=== PATIENT | female | born 1985 | race Caucasian/White ===

== ENCOUNTER → 2017-04-23 | Emergency (ER) | payer BC, OTHER, SELFPAY | PROVIDERS: Emergency Provider Nurse Practitioner Family; Family Provider Emergency Medicine; PCP Emergency Medicine; Visit Provider Nurse Practitioner Family | DX: R05 Cough (principal); R11.0 Nausea; Z72.0 Tobacco use; I10 Essential (primary) hypertension ==

== ENCOUNTER → 2018-12-18 17:46 | Outpatient (CLI) | payer OTHER, SELFPAY ==
[2018-12-18 18:37] LABS: Mean Corpuscular Hemoglobin 31.8 pg (27.0-31.2); Red Cell Distribution Width 13.8 % (11.5-17.5)
[2018-12-18 19:01] LABS: Alanine Aminotransferase 31 U/L (12-78); Albumin/Globulin Ratio 1.1 (1.1-1.8); Alkaline Phosphatase 63 U/L (46-116); Anion Gap 13.8 mEq/L (5-15); Aspartate Amino Transferase 20 U/L (15-37); Bilirubin,Total 0.5 mg/dL (0.2-1.0); Blood Urea Nitrogen 9 mg/dL (7-18); Calcium 9.2 mg/dL (8.5-10.1); Carbon Dioxide 26 mmol/L (21.0-32.0); Chloride 103 mmol/L (98-107); Creatinine,Serum 0.72 mg/dL (0.55-1.02); Estimated Glomerular Filt Rate 93 ml/min (>60); GFR (African American) 113 ML/MIN (>60); Globulin 3.7 gm/dl (1.3-3.2); Glucose 80 mg/dL (74-106); Potassium 3.8 mmoL/L (3.5-5.1); Sodium 139 mmol/L (136-145); Thyroid Stimulating Hormone 1.03 uIU/ml (0.358-3.740); Total Protein,Serum 7.7 gm/dL (6.4-8.2)
[2018-12-18 19:14] LABS: Basophils % 0.3 % (0.1-2.0); Eosinophils # 0.1 K/mm3 (0.0-0.4); Eosinophils % 2.1 % (0.1-12.0); Hematocrit 45.6 % (37.0-47.0); Hemoglobin 14.9 g/dL (12.2-16.2); Lymphocytes % 33.6 % (10-50); Mean Corpuscular HGB Conc 32.7 g/dL (31.8-35.4); Mean Corpuscular Volume 97.2 fl (81-99); Monocytes # 0.4 K/mm3 (0.1-1.0); Monocytes % 6.1 % (1.7-9.3); Neutrophils # 3.5 K/mm3 (1.8-7.8); Neutrophils % 57.9 % (37.0-80.0); Platelet Count 242 K/mm3 (142-424); Red Blood Count 4.69 M/mm3 (4.20-5.40); White Blood Count 6.1 K/mm3 (4.8-10.8)
== END ==
PROVIDERS: Visit Provider Emergency Medicine
DX: F31.9 Bipolar disorder, unspecified (principal); F32.9 Major depressive disorder, single episode, unspecified
CPT/HCPCS: 80053; 84443; 85025

== ENCOUNTER → 2019-11-01 12:40 | Outpatient (CLI) | payer OTHER, SELFPAY ==
[2019-11-01 13:47] LABS: Basophils % 0.3 % (0.1-2.0); Eosinophils # 0.1 K/mm3 (0.0-0.4); Eosinophils % 1.8 % (0.1-12.0); Hematocrit 46.7 % (37.0-47.0); Hemoglobin 15.1 g/dL (12.2-16.2); Lymphocytes # 1.3 K/mm3 (0.7-4.5); Mean Corpuscular HGB Conc 32.4 g/dL (31.8-35.4); Mean Corpuscular Hemoglobin 32.2 pg (27.0-31.2); Mean Corpuscular Volume 99.4 fl (81-99); Mean Platelet Volume 7.4 fl (7.4-10.4); Monocytes # 0.3 K/mm3 (0.1-1.0); Monocytes % 5.4 % (1.7-9.3); Neutrophils # 3.2 K/mm3 (1.8-7.8); Neutrophils % 65.6 % (37.0-80.0); Platelet Count 214 K/mm3 (142-424); Red Cell Distribution Width 13.6 % (11.5-17.5); White Blood Count 4.9 K/mm3 (4.8-10.8)
[2019-11-01 14:07] LABS: Alanine Aminotransferase 23 U/L (12-78); Albumin Level 4.4 g/dl (3.5-5.0); Albumin/Globulin Ratio 1.5 (1.1-1.8); Alkaline Phosphatase 69 U/L (38-126); Anion Gap 11.8 mEq/L (5-15); Aspartate Amino Transferase 40 U/L (14-36); Bilirubin,Direct 0.1 mg/dl (0.0-0.4); Bilirubin,Total 0.5 mg/dl (0.2-1.3); Blood Urea Nitrogen 12 mg/dl (7-17); Calcium 9.4 mg/dl (8.4-10.2); Carbon Dioxide 26 mmol/L (22.0-30.0); Chloride 104 mmol/L (98-107); Chol/HDL Ratio 3.3 (1-3.5); Cholesterol 193 mg/dl (140-200); Estimated Glomerular Filt Rate 96 ml/min (>60); GFR (African American) 116 ML/MIN (>60); Glucose 96 mg/dl (74-100); HDL Cholesterol 59 mg/dl (40-60); Potassium 3.8 mmoL/L (3.5-5.1); Sodium 138 mmol/L (136-145); Total Protein,Serum 7.4 g/dl (6.3-8.2); Triglycerides 156 mg/dl (30-150); VLDL Cholesterol 31 mg/dL (0-40)
[2019-11-01 14:18] LABS: Direct LDL Cholesterol 112.65 mg/dL (100-129)
[2019-11-01 14:24] LABS: 25-OH Vitamin D, Total 45.5 ng/mL (30-100)
[2019-11-02 10:37] LABS: HIV Screen 4th Generation wRfx Non Reactive (Non Reactive); Vitamin B12 438 pg/mL (232-1245)
[2019-11-06 01:19] LABS: HCV Genotype Charge YES; Hepatitis C Genotype 1a (.)
== END ==
PROVIDERS: Visit Provider Internal Medicine Adolescent Medicine
DX: Z00.00 Encounter for general adult medical examination without abnormal findings (principal); B18.2 Chronic viral hepatitis C
CPT/HCPCS: 36415; 80053; 80061; 80076; 82248; 82306; 82607; 85025; 86703; 87522; 87902; G0432

== ENCOUNTER → 2019-11-15 12:35 | Outpatient (CLI) | payer OTHER, SELFPAY ==
--- NOTE | 2019-11-15 13:01 | XR_ITS ---
PROCEDURE: XR CHEST 2V CLINICAL HISTORY: tobacco use COMPARISON: No exams were available for comparison FINDINGS: The cardiomediastinal silhouette and pulmonary vascularity are within normal limits. The lungs are clear without infiltrates, suspicious nodules, or pleural effusions. Minimal upper thoracic curvature convex IMPRESSION: No acute findings. Dictated by: Randall Porter MD 11/15/2019 13:15 Electronically signed by Randall Porter MD in [place] 11/15/2019 13:15
== END ==
PROVIDERS: PCP Emergency Medicine; Visit Provider Emergency Medicine
DX: Z72.0 Tobacco use (principal)
CPT/HCPCS: 71046

== ENCOUNTER → 2020-02-02 11:10 | Outpatient (CLI) | payer OTHER, SELFPAY ==
[2020-02-02 11:46] LABS: Basophils % 0.4 % (0.1-2.0); Eosinophils # 0.2 K/mm3 (0.0-0.4); Eosinophils % 4.2 % (0.1-12.0); Hemoglobin 15.3 g/dL (12.2-16.2); Lymphocytes # 1.9 K/mm3 (0.7-4.5); Lymphocytes % 33.4 % (10-50); Mean Corpuscular HGB Conc 33.2 g/dL (31.8-35.4); Mean Corpuscular Hemoglobin 32.6 pg (27.0-31.2); Mean Platelet Volume 7.8 fl (7.4-10.4); Monocytes # 0.3 K/mm3 (0.1-1.0); Monocytes % 5.3 % (1.7-9.3); Neutrophils # 3.2 K/mm3 (1.8-7.8); Neutrophils % 56.8 % (37.0-80.0); Platelet Count 92 K/mm3 (142-424); Red Blood Count 4.69 M/mm3 (4.20-5.40); Red Cell Distribution Width 13.6 % (11.5-17.5); White Blood Count 5.6 K/mm3 (4.8-10.8)
[2020-02-02 12:13] LABS: Alanine Aminotransferase 19 U/L (12-78); Albumin Level 3.9 g/dl (3.5-5.0); Alkaline Phosphatase 65 U/L (38-126); Aspartate Amino Transferase 36 U/L (14-36); Bilirubin,Direct 0.2 mg/dl (0.0-0.4); Bilirubin,Indirect 0.4 mg/dL (0.0-0.9); Bilirubin,Total 0.6 mg/dl (0.2-1.3); Bilirubin,Unconjugated 0.4 mg/dL (0.0-1.1); Blood Urea Nitrogen 6 mg/dl (7-17); Calcium 9.3 mg/dl (8.4-10.2); Carbon Dioxide 29 mmol/L (22.0-30.0); Chloride 101 mmol/L (98-107); Estimated Glomerular Filt Rate 141 ml/min (>60); GFR (African American) 171 ML/MIN (>60); Glucose 98 mg/dl (74-100); Sodium 138 mmol/L (136-145)
[2020-02-03 09:23] LABS: HIV Screen 4th Generation wRfx Non Reactive (Non Reactive)
[2020-02-03 10:26] LABS: Hep A Ab, IgM Negative (Negative); Hepatitis B Core Antibody IgM Negative (Negative); Hepatitis B Surface Antigen Negative (Negative)
[2020-02-03 11:40] LABS: Hepatitis C Antibody >11.0 s/co ratio (0.0-0.9)
[2020-02-06 14:02] LABS: Rapid Plasma Reagin Ab Titer Non Reactive (NonRea<1:1)
== END ==
PROVIDERS: Visit Provider Family Medicine Addiction Medicine
DX: F11.20 Opioid dependence, uncomplicated (principal)
CPT/HCPCS: 36415; 80048; 80074; 80076; 85025; 86592; 86703; G0432

== ENCOUNTER → 2020-02-25 12:27 | Outpatient (CLI) | payer OTHER, SELFPAY ==
[2020-02-25 12:56] LABS: Basophils % 0.4 % (0.1-2.0); Eosinophils # 0.3 K/mm3 (0.0-0.4); Hematocrit 47.9 % (37.0-47.0); Hemoglobin 15.2 g/dL (12.2-16.2); Lymphocytes # 1.6 K/mm3 (0.7-4.5); Lymphocytes % 19.4 % (10-50); Mean Corpuscular HGB Conc 31.9 g/dL (31.8-35.4); Mean Corpuscular Volume 100.5 fl (81-99); Mean Platelet Volume 6.8 fl (7.4-10.4); Monocytes # 0.4 K/mm3 (0.1-1.0); Monocytes % 4.7 % (1.7-9.3); Neutrophils # 5.8 K/mm3 (1.8-7.8); Neutrophils % 72.4 % (37.0-80.0); Platelet Count 247 K/mm3 (142-424); Red Blood Count 4.76 M/mm3 (4.20-5.40); Red Cell Distribution Width 13.5 % (11.5-17.5); White Blood Count 8.1 K/mm3 (4.8-10.8)
[2020-02-25 12:59] LABS: Urine Pregnancy, HCG Qual. Negative (Negative)
[2020-02-25 13:04] LABS: Chloride 106 mmol/L (98-107); Potassium 3.8 mmoL/L (3.5-5.1); Sodium 139 mmol/L (136-145)
[2020-02-25 13:07] LABS: Alanine Aminotransferase 15 U/L (12-78); Albumin Level 4.4 g/dl (3.5-5.0); Albumin/Globulin Ratio 1.3 (1.1-1.8); Alkaline Phosphatase 59 U/L (38-126); Anion Gap 9.8 mEq/L (5-15); Aspartate Amino Transferase 30 U/L (14-36); Bilirubin,Total 0.4 mg/dl (0.2-1.3); Blood Urea Nitrogen 8 mg/dl (7-17); Calcium 9.5 mg/dl (8.4-10.2); Carbon Dioxide 27 mmol/L (22.0-30.0); Estimated Glomerular Filt Rate 114 ml/min (>60); GFR (African American) 138 ML/MIN (>60); Globulin 3.3 g/dL (1.3-3.2); Glucose 105 mg/dl (74-100); Total Protein,Serum 7.7 g/dl (6.3-8.2)
[2020-02-25 13:11] LABS: INR 0.99 (0.9-1.1)
== END ==
PROVIDERS: Visit Provider Nurse Practitioner Acute Care
DX: B18.2 Chronic viral hepatitis C (principal); Z79.899 Other long term (current) drug therapy
CPT/HCPCS: 36415; 80053; 81025; 85025; 85610; 87522

== ENCOUNTER 2020-10-26 17:53 | Emergency (ER) | payer OTHER, SELFPAY ==
[2020-10-26 17:54] VITALS: BP 101/46; PULSE 73; RESP 18; TEMP 36.7; O2SAT 97; BMI 22.6
--- NOTE | 2020-10-26 18:14 | CT_ITS ---
PROCEDURE INFORMATION: Exam: CT Abdomen And Pelvis Without Contrast Exam date and time: 10/26/2020 6:14 PM Age: 35 years old Clinical indication: Abdominal pain; Patient HX: Left flank pain since this morning with dysuria. ; Additional info: Kidney stone protocol TECHNIQUE: Imaging protocol: Computed tomography of the abdomen and pelvis without contrast. Radiation optimization: All CT scans at this facility use at least one of these dose optimization techniques: automated exposure control; mA and/or kV adjustment per patient size (includes targeted exams where dose is matched to clinical indication); or iterative reconstruction. COMPARISON: ABDPELW/O CT ABD PELVIS W/O CONTRAST 02/01/2016 9:21 PM FINDINGS: Liver: Normal. Gallbladder and bile ducts: Normal Pancreas: Normal. Spleen: Splenic calcifications, compatible with prior granulomatous disease. Adrenal glands: Normal. No mass. Kidneys and ureters: Left nephrolithiasis. No hydronephrosis. Stomach and bowel: Moderate amount of stool throughout the colon, suggesting constipation. No obstruction. Appendix: Appendix normal. Intraperitoneal space: Unremarkable. No free air. No significant fluid collection. Vasculature: Phleboliths within the pelvis. Lymph nodes: Unremarkable. No enlarged lymph nodes. Urinary bladder: Unremarkable as visualized. Reproductive: Unremarkable as visualized. Bones/joints: No acute abnormality. Soft tissues: Normal. IMPRESSION: Moderate amount of stool throughout the colon, suggesting constipation. No obstruction.
[2020-10-26 18:20] LABS: Microscopic, Urine URINE MICROSCOPIC (MICROSCOPIC)
[2020-10-26 18:26] LABS: Appearance,Urine CLEAR (Clear); Blood, Urine TRACE-I (Negative); Color,Urine YELLOW (Yellow); Glucose,Urine (UA) Negative (Negative); Ketones,Urine Negative (Negative); Leukocyte Esterase,Urine Negative (Negative); Nitrate,Urine Negative (Negative); Protein,Urine 1+ (Negative); Specific Gravity, Urine 1.025 (1.005-1.030)
--- NOTE | 2020-10-26 18:28 | HMH.EDGENADL ---
ED Disposition Clinical Impression: Hypokalemia, Abdominal pain Disposition: Still a Patient Condition on Discharge: Good Prescriptions: Ketorolac Tromethamine [Toradol 10mg tablet] 10 mg PO Q6HP PRN 5 Days #20 tab MDD 40mg/day PRN Reason: Mild Pain Transmission Status: Pending to [facility] Potassium Chloride 10 meq PO DAILY 5 Days #5 tablet.er Transmission Status: Pending to [facility] Ondansetron [Zofran 4mg ODT] 4 mg PO TIDP PRN #15 tab PRN Reason: Nausea Transmission Status: Pending to [facility] Referrals: Tobi Serrano MD [Primary Care Provider] - - Critical Care Critical Care Time: No Attestation: On 10/26/20, the high probability of a clinically significant, sudden or life threatening deterioration of the following system(s) required my full and direct attention, intervention and personal management. The time I documented below is in addition to time spent performing reported procedures but includes the following listed in this critical care notation. Medical Decision Making - Medical Records Medical records reviewed: Yes: I reviewed the patient's medical records. - Aditya Inquiry Pt receiving controlled substance: No Vital Signs: 10/26/20 17:54 Temperature 98.1 F Temperature Source Oral Pulse Rate [Right] 73 Respiratory Rate 18 Blood Pressure [Right Arm] 101/46 L Blood Pressure Mean [Right Arm] 64 02 Sat by Pulse Oximetry 97 Oxygen Delivery Method Room Air - Lab Data Lab Results 10/26/20 18:06: Urine Color Yellow, Urine Appearance Clear, Urine pH 6.0, Ur Specific [place] 1.025, Urine Protein 1+, Urine Glucose (UA) Negative, Urine Ketones Negative, Urine Blood Trace-i, Urine Nitrate Negative, Urine Bilirubin 1+ A, Urine Urobilinogen 4.0, Ur Leukocyte Esterase Negative, Urine RBC Occasional, Urine WBC 3-5, Ur Squamous Epith Cells 5-10, Urine Bacteria Trace 10/26/20 18:29: Sodium 137, Potassium 2.8 L*, Chloride 103, Carbon Dioxide 26, Anion Gap 10.8, BUN 5 L, Creatinine 0.60, Estimated Creat Clear 112, Estimated GFR 114, Est GFR ( Amer) 138, Glucose 146 H, Calcium 8.8, Total Bilirubin 0.7, AST 30, ALT 15, Alkaline Phosphatase 72, Total Protein 7.2, Albumin 4.4, Globulin 2.8, Albumin/Globulin Ratio 1.6 10/26/20 18:29: Serum HCG, Qual Negative Result diagrams: 10/26/20 18:29 Orders (Tests/Meds): ED MEDICATIONS Discontinued Medications Generic Name Dose Route Start Last Admin Trade Name Freq PRN Reason Stop Dose Admin Potassium Chloride/Water 100 mls @ 100 mls/hr 10/26/20 18:51 Potassium Chloride 10meq/100ml Ivpb IV 10/26/20 19:50 ONCE ONE Ketorolac Tromethamine 30 mg 10/26/20 18:15 10/26/20 18:29 Ketorolac 30mg/Ml Vial IV 10/26/20 18:16 30 mg ONCE ONE Administration Ondansetron HCl 4 mg 10/26/20 18:14 10/26/20 18:30 Ondansetron 4mg Odt SL 10/26/20 18:15 Not Given ONCE ONE Ondansetron HCl 4 mg 10/26/20 18:30 10/26/20 18:31 Ondansetron 4mg/2ml Vial IV 10/26/20 18:31 4 mg ONCE ONE Administration Ondansetron HCl 4 mg 10/26/20 18:30 10/26/20 18:38 Ondansetron 4mg/2ml Vial IV 10/26/20 18:31 4 mg ONCE ONE Administration Potassium Chloride 40 meq 10/26/20 18:51 Potassium Chloride 20meq Tab PO 10/26/20 18:52 ONCE ONE Medical Decision Narrative: 35-year-old female presents with symptoms consistent with renal colic. She is in mild distress in the room. Otherwise vitals are good no concern for sepsis. There is possibility that she could have ovarian torsion as well, CT stone protocol ordered to assess for stone. Given pain and nausea medicine IV fluids and plan to reassess Improved on reassessment at 7:[address] scan pending at this time. Urinalysis and laboratory evaluation nonactionable. CT scan with no evidence of kidney stone. She is feeling much better and says she has history of ovarian cyst. No concern for ovarian torsion on C
[2020-10-26 18:40] LABS: Bilirubin,Urine 1+ (Negative)
[2020-10-26 18:43] LABS: Bacteria,Urine Trace /lpf; RBC,Urine Occasional #/hpf (0-3)
[2020-10-26 18:44] LABS: Alanine Aminotransferase 15 U/L (12-78); Albumin Level 4.4 g/dl (3.5-5.0); Albumin/Globulin Ratio 1.6 (1.1-1.8); Alkaline Phosphatase 72 U/L (38-126); Anion Gap 10.8 mEq/L (5-15); Aspartate Amino Transferase 30 U/L (14-36); Bilirubin,Total 0.7 mg/dl (0.2-1.3); Blood Urea Nitrogen 5 mg/dl (7-17); Calcium 8.8 mg/dl (8.4-10.2); Carbon Dioxide 26 mmol/L (22.0-30.0); Chloride 103 mmol/L (98-107); Creatinine Clearance Estimated 112 mL/min (50-200); Estimated Glomerular Filt Rate 114 ml/min (>60); GFR (African American) 138 ML/MIN (>60); Globulin 2.8 g/dL (1.3-3.2); Glucose 146 mg/dl (74-100); Sodium 137 mmol/L (136-145); Total Protein,Serum 7.2 g/dl (6.3-8.2)
[2020-10-26 18:50] LABS: Potassium 2.8 mmoL/L (3.5-5.1)
--- NOTE | 2020-10-26 18:50 | PC.NURSE ---
CRITICAL POTASSIUM NOTIFIED TO
[2020-10-26 18:52] LABS: HCG Qualitative, Serum Negative (Negative)
[2020-10-26 20:08] VITALS: BP 108/56; PULSE 72; RESP 16; TEMP 36.7; O2SAT 98
== END 2020-10-26 20:12 | disposition still patient (30) ==
PROVIDERS: Emergency Provider Emergency Medicine; PCP Emergency Medicine
DX: R10.32 Left lower quadrant pain (principal); E87.6 Hypokalemia; F41.8 Other specified anxiety disorders; F17.210 Nicotine dependence, cigarettes, uncomplicated; Z79.899 Other long term (current) drug therapy
CPT/HCPCS: 74176; 80053; 81001; 84703; 96374; 96375; 96376; 99283; J2405

== ENCOUNTER 2021-01-06 20:37 | Emergency (ER) | payer OTHER, SELFPAY ==
[2021-01-06 20:50] VITALS: BP 126/83; PULSE 88; RESP 19; TEMP 36.8; O2SAT 98; BMI 22.4
--- NOTE | 2021-01-06 21:33 | HMH.EDUTC ---
[facility] Disposition Clinical Impression: Exposure to COVID-19 virus Disposition: Home, Self-Care Condition on Discharge: Good Instructions: DI for Viral Syndrome, DI for COVID-19 (Suspected or Confirmed ), Coronavirus Disease 2019, Preventing the Spread of Coronavirus Discharge Instructions Additional Instructions: *Monitor Temp, Over the counter Motrin or Tylenol as directed/as needed Tylenol every 4 hours and Motrin every 6 hours (as long as your family doctor has told you that you can take it) for fever or pain. and straight to ER if unable to lower temp less than 101.0 after medication given *Warm salt water gargles may help to soothe the throat *Throat Lozenges *Warm fluids like tea with honey may help to soothe the throat *Sleep elevated *Humidifier/Vaporizer Follow up IMMEDIATELY for new or worsening symptoms or no Noticeable improvement over the next 48-72 hours. 911 for difficulty breathing or swallowing You were tested for today for COVID19 your test result should be back in the next 24-48 hours, you may call to the [facility] to see if your test results are back in the next 48 hours [phone] [facility] hours are 9am-9pm You was given a handout with instructions for Self Quarantine and Self isolation for while you wait on test results and what to do if they are positive If you are positive the Health Dept will be contacting you also Make sure to take your Vitamins Vit. C Vit D and Zinc if you can take them Prescriptions: Ondansetron [Zofran 4mg ODT] 4 mg PO TIDP PRN #10 tab PRN Reason: Vomiting Transmission Status: Pending to [facility] Referrals: Tobi Serrano MD [Primary Care Provider] - As needed Forms: Work/School Release Time of Disposition: 21:37 Medical Decision Making - Aditya Inquiry Pt receiving controlled substance: No Aditya was queried for this patient: No Vital Signs: 01/06/21 20:50 Temperature 98.3 F Temperature Source Oral Pulse Rate [Right Brachial] 88 Respiratory Rate 19 Blood Pressure [Right Arm] 126/83 Blood Pressure Mean [Right Arm] 97 Blood Pressure Source [Right Arm] Automatic Cuff Blood Pressure Position [Right Arm] Sitting 02 Sat by Pulse Oximetry 98 Oxygen Delivery Method Room Air Orders (Tests/Meds): ORDERS Category Date Time Status Covid-19 Nasal PCR ([facility]) Routine Lab 01/06/21 21:01 Received Medical Decision Narrative: Patient states that she has taken zofran in the past without reaction or complications [facility] HPI - General Stated complaint: SOA, exposure Time Seen by Provider: 01/06/21 21:33 Mode of Arrival: Ambulatory Source of Information: Patient Limitations: No Limitations Description of Symptoms (Recalled from Triage Doc. by RN): COVID TEST D/T EXPOSURE. C/O BODY ACHES, NAUSEA, AND COUGH HEENT Symptoms (Recalled from RN notes): No Resp Symptoms (Recalled from RN notes): No Skin Symptoms (Recalled from RN notes): No MS Symptoms (Recalled from RN notes): No Functional Status (Recalled from RN notes): WNL - History of Present Illness Provider Complaint: Patient states that she has been having body aches, nausea, cough and chills and feeling tired State that she hs been working alot and thought it was just that but then found out this evening that someone at work tested positive for COVID and it freaked her out States that they sent her to get tested - Related Data Home Medications Medication Instructions Recorded Confirmed buprenorphine HCl 2 mg sublingual 8 mg SUBLINGUAL DAILY 06/02/17 12/08/20 tablet Previous Rx's Medication Instructions Recorded aripiprazole 20 mg tablet See Rx Instructions .ROUTE 09/13/20 .COMPLEX #90 tab topiramate 25 mg tablet 25 mg PO DAILY #30 tab 09/13/20 Potassium Chloride 10 meq PO DAILY 5 Days #5 tablet.er 10/26/20 budesonide-formoterol HFA 160 2 puff INHALATION BID #10.2 g 11/08/20 mcg-4.5 mcg/actuation aerosol inhaler gabapentin 800 mg tablet 800 mg PO TID #90 tab
[2021-01-06 21:41] VITALS: BP 126/83; PULSE 88; RESP 19; TEMP 36.8; O2SAT 98
== END 2021-01-06 21:44 | disposition home or self-care (01) ==
PROVIDERS: Emergency Provider Nurse Practitioner; PCP Emergency Medicine
DX: R06.02 Shortness of breath (principal); Z20.822 Contact with and (suspected) exposure to COVID-19
CPT/HCPCS: 99202; G0463; U0003

== ENCOUNTER → 2021-03-05 18:32 | Outpatient (CLI) | payer OTHER, SELFPAY ==
[2021-03-05 19:03] LABS: Basophils % 0.3 % (0.1-2.0); Eosinophils # 0.1 K/mm3 (0.0-0.4); Eosinophils % 0.8 % (0.1-12.0); Hematocrit 50.2 % (37.0-47.0); Hemoglobin 16.1 g/dL (12.2-16.2); Lymphocytes # 2.2 K/mm3 (0.7-4.5); Lymphocytes % 26.5 % (10-50); Mean Corpuscular HGB Conc 32.2 g/dL (31.8-35.4); Mean Corpuscular Hemoglobin 32.4 pg (27.0-31.2); Mean Corpuscular Volume 100.6 fl (81-99); Mean Platelet Volume 7.3 fl (7.4-10.4); Monocytes # 0.5 K/mm3 (0.1-1.0); Monocytes % 6.1 % (1.7-9.3); Neutrophils # 5.6 K/mm3 (1.8-7.8); Neutrophils % 66.3 % (37.0-80.0); Platelet Count 234 K/mm3 (142-424); Red Blood Count 4.99 M/mm3 (4.20-5.40); Red Cell Distribution Width 13.3 % (11.5-17.5); White Blood Count 8.4 K/mm3 (4.8-10.8)
[2021-03-05 19:32] LABS: Free T4 (Free Thyroxine) 1.53 ng/dl (0.78-2.19)
[2021-03-05 20:01] LABS: Alanine Aminotransferase 14 U/L (12-78); Albumin Level 4.6 g/dl (3.5-5.0); Albumin/Globulin Ratio 1.4 (1.1-1.8); Alkaline Phosphatase 84 U/L (38-126); Anion Gap 15.1 mEq/L (5-15); Aspartate Amino Transferase 40 U/L (14-36); Bilirubin,Total 0.6 mg/dl (0.2-1.3); Blood Urea Nitrogen 10 mg/dl (7-17); Calcium 9.7 mg/dl (8.4-10.2); Carbon Dioxide 24 mmol/L (22.0-30.0); Chloride 105 mmol/L (98-107); Chol/HDL Ratio 4.2 (1-3.5); Cholesterol 210 mg/dl (140-200); Estimated Glomerular Filt Rate 114 ml/min (>60); GFR (African American) 138 ML/MIN (>60); Globulin 3.3 g/dL (1.3-3.2); Glucose 95 mg/dl (74-100); HDL Cholesterol 50 mg/dl (40-60); Potassium 4.1 mmoL/L (3.5-5.1); Sodium 140 mmol/L (136-145); Total Protein,Serum 7.9 g/dl (6.3-8.2); Triglycerides 104 mg/dl (30-150); VLDL Cholesterol 21 mg/dL (0-40)
[2021-03-05 20:11] LABS: Direct LDL Cholesterol 120.95 mg/dL (100-129)
[2021-03-05 20:30] LABS: Thyroid Stimulating Hormone 2.33 uIU/mL (0.465-4.68)
[2021-03-05 20:55] LABS: 25-OH Vitamin D, Total 40.4 ng/mL (30-100)
[2021-03-05 21:02] LABS: Amphetamine/Metha Screen,Urine Positive ng/ml (<1000)
[2021-03-05 21:03] LABS: Barbiturates Screen,Urine Negative ng/ml (<200)
[2021-03-05 21:05] LABS: Benzodiazepines Screen,Urine Negative ng/ml (<200); Cannabinoid Screen,Urine Negative ng/ml (<50)
[2021-03-05 21:06] LABS: Cocaine Screen,Urine Negative ng/ml (<300)
[2021-03-05 21:07] LABS: Methadone Screen,Urine Negative ng/ml (<300); Opiate Screen,Urine Negative ng/ml (<300)
[2021-03-05 21:08] LABS: Phencyclidine Screen,Urine Negative ng/ml (<25)
== END ==
PROVIDERS: Visit Provider Emergency Medicine
DX: E66.3 Overweight (principal); E55.9 Vitamin D deficiency, unspecified; Z79.899 Other long term (current) drug therapy
CPT/HCPCS: 80053; 80061; 80305; 82306; 84439; 84443; 85025

== ENCOUNTER → 2021-03-13 15:12 | Outpatient (CLI) | payer OTHER, SELFPAY ==
[2021-03-13 15:50] VITALS: PULSE 78; PULSE 80
== END ==
PROVIDERS: PCP Emergency Medicine; Visit Provider Emergency Medicine
DX: R06.02 Shortness of breath (principal)
CPT/HCPCS: 94060; 94640; 94727; 94729

== ENCOUNTER → 2021-03-26 20:46 | Outpatient (CLI) | payer OTHER, SELFPAY ==
[2021-03-26 23:13] LABS: Phencyclidine Screen,Urine Negative ng/ml (<25)
[2021-03-26 23:30] LABS: Amphetamine/Metha Screen,Urine Negative ng/ml (<1000)
[2021-03-26 23:31] LABS: Barbiturates Screen,Urine Negative ng/ml (<200)
[2021-03-26 23:32] LABS: Benzodiazepines Screen,Urine Negative ng/ml (<200); Cannabinoid Screen,Urine Negative ng/ml (<50)
[2021-03-26 23:35] LABS: Cocaine Screen,Urine Negative ng/ml (<300); Methadone Screen,Urine Negative ng/ml (<300)
[2021-03-26 23:36] LABS: Opiate Screen,Urine Negative ng/ml (<300)
== END ==
PROVIDERS: Visit Provider Emergency Medicine
DX: R82.90 Unspecified abnormal findings in urine (principal); Z79.899 Other long term (current) drug therapy
CPT/HCPCS: 80305; 87086

== ENCOUNTER 2021-08-25 03:27 | Emergency (ER) | payer OTHER, SELFPAY ==
[2021-08-25 03:29] VITALS: BP 127/67; PULSE 87; RESP 18; TEMP 36.7; O2SAT 98; BMI 22.6
--- NOTE | 2021-08-25 03:35 | HMH.EDGENADL ---
ED Disposition Clinical Impression: Upper respiratory infection Qualifiers: URI type: unspecified URI Qualified Code(s): J06.9 - Acute upper respiratory infection, unspecified Disposition: Home, Self-Care Condition on Discharge: Good Instructions: DI for Acute Bronchitis Additional Instructions: Please continue to monitor your condition at home. If your condition worsens or any other concerns arise, please return to the emergency department for reassessment. Otherwise, please follow-up with your primary care physician within the next week as needed. Referrals: Tobi Serrano MD [Primary Care Provider] - - Critical Care Critical Care Time: No Attestation: On , the high probability of a clinically significant, sudden or life threatening deterioration of the following system(s) required my full and direct attention, intervention and personal management. The time I documented below is in addition to time spent performing reported procedures but includes the following listed in this critical care notation. Medical Decision Making - Medical Records Medical records reviewed: Yes: I reviewed the patient's medical records. - Aditya Inquiry Pt receiving controlled substance: No Vital Signs: 08/25/21 03:29 Temperature 98.1 F Temperature Source Oral Pulse Rate [Left Radial] 87 Respiratory Rate 18 Blood Pressure [Right Arm] 127/67 Blood Pressure Mean [Right Arm] 87 Blood Pressure Position [Right Arm] Sitting 02 Sat by Pulse Oximetry 98 Oxygen Delivery Method Room Air - Lab Data Lab results reviewed: Yes: I reviewed the patient's lab results. Lab Results 08/25/21 03:47: SARS-CoV-2 (PCR) Not detected, Influenza A Untype (PCR) Not detected, Influenza Type B (PCR) Not detected Orders (Tests/Meds): ED MEDICATIONS Generic Name Dose Route Start Last Admin Trade Name Freq PRN Reason Stop Dose Admin Ondansetron HCl 4 mg 08/25/21 04:17 Ondansetron 4mg Odt SL 08/25/21 04:18 ONCE ONE Medical Decision Narrative: Patient is a 36-year-old female without significant medical history is presenting for chief complaint of intermittent headaches, runny nose, dry cough and body aches. Differential diagnosis includes, but is not limited to, COVID-19, influenza, asthma exacerbation, seasonal allergies, pneumonia. On initial exam, patient is hemodynamically stable nontoxic-appearing. Patient has clear lung sounds bilaterally, no wheezing or rhonchi appreciated. She has appropriate SPO2 saturations on room air and is not tachycardic. Oropharynx is clear without erythema or exudates. Patient's presentation is consistent with a viral illness. She was evaluated with a COVID-19 and influenza swab, negative results. Given 1 day of symptoms, no fever and no productive cough, I have a low suspicion for bacterial pneumonia at this time. Patient was counseled to continue to monitor symptoms at home and follow-up with her primary care physician within the next week as needed. She was given return precautions and discharged in a stable condition. General Adult HPI - General Stated complaint: Cough,[place],Lower back pain Time Seen by Provider: 08/25/21 03:35 - History of Present Illness HPI narrative: Scarlett is a 36-year-old female with past medical history significant for asthma and tobacco use is presenting for chief complaint of 1 day of intermittent headache, runny nose, dry cough and body aches. Patient has been exposed at work to an individual who was diagnosed with pneumonia and is concerned. She has been afebrile and does not have new sputum production or hemoptysis. She is denying chest pain or dyspnea. No abdominal symptoms or changes in GI/. Associated symptoms include lower back ache but she denies dysuria, hematuria, diarrhea or blood in stool. She is unvaccinated for COVID-19. - Related Data Home Medications Medication Instructions Recorded Confirmed buprenorphine HCl 2 mg sublingual 8 mg
[2021-08-25 03:52] LABS: Coronavirus 19, PCR Not Detected (NotDetected); Influenza A, PCR Not Detected (NotDetected); Influenza B, PCR Not Detected (NotDetected)
[2021-08-25 04:31] VITALS: BP 127/67; PULSE 87; RESP 16; TEMP 36.7; O2SAT 98
== END 2021-08-25 04:38 | disposition home or self-care (01) ==
PROVIDERS: Emergency Provider Emergency Medicine; PCP Emergency Medicine
DX: J06.9 Acute upper respiratory infection, unspecified (principal); M54.50 Low back pain, unspecified; N80.9 Endometriosis, unspecified; G43.909 Migraine, unspecified, not intractable, without status migrainosus; B19.20 Unspecified viral hepatitis C without hepatic coma; F32.A Depression, unspecified; F41.9 Anxiety disorder, unspecified; F17.210 Nicotine dependence, cigarettes, uncomplicated; Z88.8 Allergy status to other drugs, medicaments and biological substances
CPT/HCPCS: 99283; C9803; U0003; U0005

== ENCOUNTER 2022-05-10 14:30 | Emergency (ER) | payer OTHER, SELFPAY ==
[2022-05-10 14:40] VITALS: BP 123/78; PULSE 76; RESP 18; TEMP 36.9; O2SAT 98; BMI 23.2
--- NOTE | 2022-05-10 14:47 | EXP.UTC ---
Discharge Plan Disposition Patient Disposition: Home, Self-Care Condition: Good Prescriptions Prescriptions: New ondansetron 4 mg tablet,disintegrating 4 mg PO Q8H PRN (Reason: nausea and vomiting) Qty: 10 0RF No Action buprenorphine HCl 2 mg tablet, sublingual 8 mg SUBLINGUAL DAILY aripiprazole 20 mg tablet See Rx Instructions .ROUTE .COMPLEX Qty: 90 1RF Dose Instruction: TAKE ONE TABLET BY MOUTH ONCE A DAY Rx Instructions: TAKE ONE TABLET BY MOUTH ONCE A DAY topiramate 25 mg tablet 25 mg PO DAILY Qty: 90 1RF gabapentin 800 mg tablet 800 mg PO TID Qty: 90 2RF ondansetron 4 mg tablet,disintegrating 4 mg PO Q8H PRN (Reason: nausea and vomiting) Qty: 30 0RF budesonide-formoterol [Symbicort] 160-4.5 mcg/actuation HFA aerosol inhaler See Rx Instructions .ROUTE .COMPLEX Qty: 10.2 2RF Dose Instruction: INHALE 2 PUFFS BY MOUTH 2 TIMES A DAY Rx Instructions: INHALE 2 PUFFS BY MOUTH 2 TIMES A DAY Referrals Follow up/Referrals: Tobi Serrano MD [Primary Care Provider] - See instructions Activity Restrictions/Add. Instructions Additional Instructions/Restrictions: Drink extra fluids with and between meals. If you have difficulty drinking, try very small amounts of water or suck on ice chips. ? Avoid fruit juices, as these do not replace minerals and can actually increase diarrhea. ? Children and adults can use sports drinks to replenish electrolytes. Younger children and infants should use products formulated for children, like oral rehydration solutions. ? Eat food in small amounts and let your stomach recover. ? Get lots of rest. You may feel tired or weak. ? No greasy or fried foods for the next 24-48 hours BRAT diet Bananas Rice Apples and [place] ? Make sure to drink plenty of liquids ? Return if needed ? Straight to ER if any life threatening symptoms ? Zofran as prescribed ? Follow up with family doctor in the next 48-72 hours if no improvement or any worsening of symptoms Clinical Impressions Clinical Impression: Nausea & vomiting Qualifiers: Vomiting type: unspecified Qualified Code(s): R11.2 - Nausea with vomiting, unspecified Instructions Patient Instructions: DI for Nausea -- Adult, Nausea and Vomiting-Adult Discharge ED Provider: Palak Morris [facility] General Stated complaint: vomiting Time Seen by Provider: 05/10/22 14:47 History of Present Illness Provider Complaint: Patient states that she has been having some N/V States that she feels like her hormones is off like she did before when she was requesting blood test to see if she is or may have stomach bug that is going around Related Data Home Medications Medication Instructions Recorded Confirmed buprenorphine HCl 2 mg sublingual 8 mg sublingual DAILY opioid 06/02/17 03/15/22 tablet addiction Previous Rx's Medication Instructions Recorded aripiprazole 20 mg tablet See Rx Instructions .Route 12/19/21 .COMPLEX #90 tabs topiramate 25 mg tablet 25 mg PO DAILY . #90 tabs 12/19/21 budesonide-formoterol HFA 160 See Rx Instructions .Route 03/15/22 mcg-4.5 mcg/actuation aerosol .COMPLEX #10.2 grams inhaler (Symbicort) gabapentin 800 mg tablet 800 mg PO TID . #90 tabs 03/15/22 ondansetron 4 mg disintegrating 4 mg PO Q8H PRN nausea and 03/15/22 tablet vomiting #30 tabs ondansetron 4 mg disintegrating 4 mg PO Q8H PRN nausea and 05/10/22 tablet vomiting #10 tabs Allergies Allergy/AdvReac Type Severity Reaction Status Date / Time naproxen [NAPROXEN] Allergy Mild I-ITCHING Verified 03/15/22 09:20 [facility] Disclaimer: The information contained in this section may have been updated after the patient was seen, as this information can be updated by other users. Medical History (Updated 05/10/22 @ 15:20 by Palak Morris APRN) Anxiety Lumbar radicular pain
[2022-05-10 15:17] VITALS: BP 123/78; PULSE 76; RESP 18; TEMP 36.9; O2SAT 98
[2022-05-10 15:18] LABS: HCG Qualitative, Serum Negative (Negative)
== END 2022-05-10 15:19 | disposition home or self-care (01) ==
PROVIDERS: Emergency Provider Nurse Practitioner; PCP Emergency Medicine
DX: R11.2 Nausea with vomiting, unspecified (principal)
CPT/HCPCS: 84703; 99212; G0463

== ENCOUNTER → 2022-06-06 15:57 | Outpatient (CLI) | payer OTHER, SELFPAY ==
[2022-06-06 17:52] LABS: HCG,Quantitative < 2 mIU/ml (0-5.42)
[2022-06-08 08:22] LABS: HIV Screen 4th Generation wRfx Non Reactive (Non Reactive)
[2022-06-08 11:32] LABS: HSV 2 IgG Supplemental Testing Positive (Negative); HSV 2 IgG, Type Spec 2.09 index (0.00-0.90)
[2022-06-08 17:03] LABS: Rapid Plasma Reagin Ab Titer Non Reactive (NonRea<1:1)
[2022-06-22 01:50] LABS: Hep A Ab, IgM Negative; Hepatitis B Surface Antigen Negative
[2022-06-22 01:51] LABS: Hepatitis B Core Antibody IgM Negative
[2022-06-22 01:53] LABS: Hepatitis C Antibody >11.0
== END ==
PROVIDERS: PCP Emergency Medicine; Visit Provider Obstetrics & Gynecology
DX: Z72.51 High risk heterosexual behavior (principal); Z11.4 Encounter for screening for human immunodeficiency virus [HIV]
CPT/HCPCS: 36415; 80074; 84702; 86593; 86695; 86703; 86790; G0432

== ENCOUNTER → 2022-06-24 12:42 | Outpatient (CLI) | payer OTHER, SELFPAY ==
[2022-06-24 15:13] LABS: HCG,Quantitative 16622 mIU/ml (0-5.42)
[2022-06-25 09:01] LABS: Progesterone 13.9 ng/mL (.)
== END ==
PROVIDERS: PCP Emergency Medicine; Visit Provider Obstetrics & Gynecology
DX: N92.6 Irregular menstruation, unspecified (principal); Z32.00 Encounter for pregnancy test, result unknown
CPT/HCPCS: 36415; 84144; 84702

== ENCOUNTER 2022-06-30 19:49 | Emergency (ER) | payer OTHER, SELFPAY ==
[2022-06-30 19:52] VITALS: BP 132/78; PULSE 115; RESP 20; TEMP 36.7; O2SAT 98; BMI 23.8
[2022-06-30 20:22] LABS: Microscopic, Urine URINE MICROSCOPIC (MICROSCOPIC)
[2022-06-30 20:26] LABS: Appearance,Urine CLOUDY (Clear); Blood, Urine 3+ (Negative); Color,Urine ORANGE (Yellow); Glucose,Urine (UA) Negative (Negative); Ketones,Urine Negative (Negative); Leukocyte Esterase,Urine Negative (Negative); Nitrate,Urine Negative (Negative); Protein,Urine 2+ (Negative); Specific Gravity, Urine 1.025 (1.005-1.030); Urine Pregnancy, HCG Qual. Positive (Negative)
[2022-06-30 20:26] LABS: Basophils # 0.1 K/mm3 (0-0.2); Basophils % 0.8 % (0.1-2.0); Eosinophils # 0.1 K/mm3 (0.0-0.4); Eosinophils % 0.5 % (0.1-12.0); Hematocrit 45.9 % (37.0-47.0); Lymphocytes # 2.9 K/mm3 (0.7-4.5); Lymphocytes % 23.3 % (10-50); Mean Corpuscular HGB Conc 32.7 g/dL (31.8-35.4); Mean Corpuscular Hemoglobin 31.1 pg (27.0-31.2); Mean Corpuscular Volume 94.9 fl (81-99); Mean Platelet Volume 7.4 fl (7.4-10.4); Monocytes # 0.7 K/mm3 (0.1-1.0); Monocytes % 5.5 % (1.7-9.3); Neutrophils # 8.6 K/mm3 (1.8-7.8); Neutrophils % 69.9 % (37.0-80.0); Platelet Count 281 K/mm3 (142-424); Red Blood Count 4.83 M/mm3 (4.20-5.40); Red Cell Distribution Width 14.4 % (11.5-17.5); White Blood Count 12.3 K/mm3 (4.8-10.8)
[2022-06-30 20:27] LABS: Chloride 107 mmol/L (98-107); Potassium 3.5 mmoL/L (3.5-5.1); Sodium 136 mmol/L (136-145)
[2022-06-30 20:29] LABS: Alanine Aminotransferase 19 U/L (12-78); Alkaline Phosphatase 54 U/L (38-126); Anion Gap 9.5 mEq/L (5-15); Aspartate Amino Transferase 30 U/L (14-36); Bilirubin,Total 0.5 mg/dl (0.2-1.3); Blood Urea Nitrogen 10 mg/dl (7-17); Carbon Dioxide 23 mmol/L (22.0-30.0); Creatinine Clearance Estimated 102 mL/min (50-200); Estimated Glomerular Filt Rate 94 ml/min (>60); GFR (African American) 114 ML/MIN (>60)
--- NOTE | 2022-06-30 20:29 | HMH.EDUROGF ---
Discharge Plan Disposition Patient Disposition: Home, Self-Care Chief Complaint: Vaginal Bleeding Prescriptions Prescriptions: No Action gabapentin 800 mg tablet 800 mg PO TID Qty: 90 2RF albuterol sulfate 90 mcg/actuation HFA aerosol inhaler 2 puff inhalation Q4-6H PRN (Reason: shortness of breath or wheezing) Qty: 8.5 0RF buprenorphine HCl 8 mg tablet, sublingual 8 mg sublingual DAILY ondansetron HCl 4 mg tablet 4 mg PO Q8H PRN (Reason: nausea and vomiting) Qty: 14 0RF bupropion HCl [Wellbutrin XL] 150 mg tablet extended release 24 hr 150 mg PO DAILY budesonide-formoterol [Symbicort] 160-4.5 mcg/actuation HFA aerosol inhaler See Rx Instructions .ROUTE .COMPLEX Rx Instructions: INHALE 2 PUFFS BY MOUTH 2 TIMES A DAY Referrals Follow up/Referrals: Tobi Serrano MD [Primary Care Provider] - See instructions Shrada Jack MD [Staff Physician] - See instructions Clinical Impressions Clinical Impression: , Vaginal bleeding before 22 weeks gestation Instructions Patient Instructions: DI for Vaginal Bleeding During Discharge ED Provider: Zach (ED)Tobi Female Urogenital HPI General Chief complaint: Vaginal Bleeding Stated complaint: 1 to 10 wks preg bleeding Time Seen by Provider: 06/30/22 20:29 Mode of Arrival: Family Vehicle Source of Information: Patient and Medical Record Limitations: No Limitations Description of Symptoms (Recalled from ER Triage Doc. by RN): Pt c/o being 1-10 weeks pregant and began to have vaginal bleeding about 30 min [employer] (1930). Denies any pain. She doies c/o nausea but states I've been really nauseated and taking zofran . States the blood is bright red, denies any clots. Denies any vomiting or diarrhea. She is . States that she has had 1 previous tubal . She had her first OB appt with Dr. Jack on 07/08 and labs were done on 06/24, HCG quant 16,622. History of Present Illness HPI Narrative: with vag bleeding and presents to the ed Complaint: vaginal bleeding Onset (ago): hour(s) Severity: moderate : Yes Associated symptoms: nausea/vomiting Related Data Home Medications Medication Instructions Recorded Confirmed buprenorphine HCl 8 mg sublingual 8 mg sublingual DAILY addiction 06/06/22 06/30/22 tablet budesonide-formoterol HFA 160 See Rx Instructions .Route 06/30/22 06/30/22 mcg-4.5 mcg/actuation aerosol .COMPLEX Asthma inhaler (Symbicort) bupropion HCl 150 mg 24 hr tablet, 150 mg PO DAILY Depression 06/30/22 06/30/22 extended release (Wellbutrin XL) Previous Rx's Medication Instructions Recorded ondansetron HCl 4 mg tablet 4 mg PO Q8H PRN nausea and 06/06/22 vomiting #14 tabs albuterol sulfate 90 mcg/actuation 2 puff inhalation Q4-6H PRN 06/12/22 aerosol inhaler shortness of breath or wheezing #8.5 grams gabapentin 800 mg tablet 800 mg PO TID . #90 tabs 06/12/22 Allergies Allergy/AdvReac Type Severity Reaction Status Date / Time naproxen [NAPROXEN] Allergy Mild I-ITCHING Verified 06/12/22 13:00 [facility] Disclaimer: The information contained in this section may have been updated after the patient was seen, as this information can be updated by other users. Medical History (Updated 06/30/22 @ 22:22 by Tobi Serrano (ABRAM)MD) Anxiety Drug abuse History of ectopic Lumbar radicular pain Migraine Neuropathy Surgical History (Updated 06/06/22 @ 17:34 by Sharda Jack MD) History of section Family History (Updated 06/06/22 @ 15:20 by Ana Ulloa CMA) Other Alcoholism Asthma Cancer Heart attack Hyperlipidemia Hypertension Substance abuse Social History Smoking Status: Current every day smoker tobacco type: cigarettes packs per day: 1 alcohol intake: never substance use type: former substance user current occupational status: unemployed
[2022-06-30 20:30] VITALS: BP 116/65; PULSE 92; O2SAT 97
[2022-06-30 20:30] LABS: Albumin Level 4.6 g/dl (3.5-5.0); Albumin/Globulin Ratio 1.4 (1.1-1.8); Calcium 8.8 mg/dl (8.4-10.2); Globulin 3.3 g/dL (1.3-3.2); Glucose 109 mg/dl (74-100); Total Protein,Serum 7.9 g/dl (6.3-8.2)
--- NOTE | 2022-06-30 20:30 | US_ITS ---
PROCEDURE INFORMATION: Exam: US , Transvaginal Exam date and time: 06/30/2022 8:56 PM Age: 37 years old Clinical indication: Lmp or gestational age (in weeks): 6w3d; Antepartum complications; Bleeding; ; Additional info: w vaginal bleeding TECHNIQUE: Imaging protocol: Real-time transvaginal obstetrical ultrasound of the maternal pelvis with image documentation. Transvaginal imaging was used for better evaluation of the fetus, adnexa, and/or cervix. COMPARISON: [facility] US PREG FOLLOWUP SINGLE FETUS 01/03/2017 10:39 AM FINDINGS: Gestation: There is a single viable intrauterine gestation measuring 6 weeks 3 days with heart rate of 118 bpm. Estimated dated delivery is 02/16/2023. Gestational sac contour and amniotic fluid volume appear normal. Normal-appearing yolk sac noted. No maternal adnexal abnormality seen. IMPRESSION: Unremarkable limited exam.
[2022-06-30 20:41] LABS: Bilirubin,Urine 1+ (Negative)
[2022-06-30 20:45] LABS: Bacteria,Urine 1+ /lpf; WBC,Urine Occasional #/hpf (0-3)
[2022-06-30 21:30] VITALS: BP 117/64; PULSE 93; O2SAT 98
[2022-06-30 22:24] VITALS: BP 117/64; PULSE 93; RESP 18; TEMP 36.8; O2SAT 99
== END 2022-06-30 22:29 | disposition home or self-care (01) ==
PROVIDERS: Emergency Provider Emergency Medicine; PCP Emergency Medicine
DX: O46.8X1 Other antepartum hemorrhage, first trimester (principal); Z3A.01 Less than 8 weeks gestation of pregnancy; O99.331 Smoking (tobacco) complicating pregnancy, first trimester; F17.210 Nicotine dependence, cigarettes, uncomplicated
CPT/HCPCS: 76817; 80053; 81001; 81025; 84702; 85025; 96360; 96372; 99285; J2790

== ENCOUNTER → 2022-08-09 11:20 | Outpatient (CLI) | payer OTHER, SELFPAY ==
[2022-08-10 10:02] LABS: Rubella Antibodies, IgG 1.47 index (Immune >0.99)
== END ==
PROVIDERS: PCP Nurse Practitioner Family; Visit Provider Obstetrics & Gynecology
DX: Z34.90 Encounter for supervision of normal pregnancy, unspecified, unspecified trimester (principal)
CPT/HCPCS: 36415; 86762; 87522

== ENCOUNTER 2022-08-29 13:39 | Emergency (ER) | payer OTHER, SELFPAY ==
[2022-08-29 13:51] VITALS: BP 102/68; PULSE 81; RESP 16; TEMP 36.6; O2SAT 99; BMI 25.4
--- NOTE | 2022-08-29 14:24 | HMH.EDGENADL ---
Discharge Plan Disposition Patient Disposition: Home, Self-Care Condition: Good Prescriptions Prescriptions: No Action omeprazole 20 mg capsule,delayed release(DR/EC) 20 mg PO DAILY Qty: 30 11RF buprenorphine-naloxone 8-2 mg tablet, sublingual 1 tab sublingual BID albuterol sulfate 90 mcg/actuation HFA aerosol inhaler See Rx Instructions .ROUTE .COMPLEX Qty: 8.5 3RF Dose Instruction: INHALE 2 PUFFS BY MOUTH EVERY 4 TO 6 HOURS NEEDED FOR SHORTNESS OF BREATH OR WHEEZING Rx Instructions: INHALE 2 PUFFS BY MOUTH EVERY 4 TO 6 HOURS NEEDED FOR SHORTNESS OF BREATH OR WHEEZING gabapentin 400 mg capsule 400 mg PO TID 7 Days Qty: 21 0RF Rx Instructions: Preg: Weaning off 400mg TID x 7 days then 200mg TID x 7 days then STOP gabapentin 100 mg capsule 200 mg PO TID 7 Days Qty: 42 0RF Rx Instructions: Preg: Weaning off 400mg TID x 7 days then 200mg TID x 7 days then STOP ondansetron 4 mg tablet,disintegrating 4 mg PO Q8H PRN (Reason: nausea and vomiting) Qty: 30 0RF budesonide-formoterol [Symbicort] 160-4.5 mcg/actuation HFA aerosol inhaler See Rx Instructions .ROUTE .COMPLEX Rx Instructions: INHALE 2 PUFFS BY MOUTH 2 TIMES A DAY Referrals Follow up/Referrals: Pollo Oliva APRN [Primary Care Provider] - See instructions Clinical Impressions Clinical Impression: Pleurisy Instructions Patient Instructions: DI for Low Back Pain Discharge ED Provider: [facility] General Adult HPI General Chief complaint: Back Pain/Injury Stated complaint: 15 weeks prego Pain in her back and under her ribs Time Seen by Provider: 08/29/22 13:56 Mode of Arrival: Ambulatory Source of Information: Patient Limitations: No Limitations Description of Symptoms (Recalled from ER Triage Doc. by RN): Presents via POV d/t right upper back pain and left rib pain x 1 week. Denies precipitating/alleviating factors. + 15 wks preg. Last OB appt x 2 days ago, normal/routine appt. History of Present Illness HPI narrative: This is a 37-year-old female with history of polysubstance abuse currently on Suboxone maintenance therapy who is 15 weeks presenting with posterior chest wall pain. Patient states that her niece came to the ER 1 day prior to arrival and was diagnosed with pleurisy. Since that time, patient states that she was thinking about her symptoms and thinks she may have pleurisy 2. Patient having chest pain with deep inspiration and right posterior chest. Does not radiate, no neurologic symptoms, no traumatic history. No history of pneumonia or other infectious intrathoracic processes. Denies history of bacteremia or endocarditis given history. Patient also has dry cough. Denies shortness of breath, nausea or vomiting, fevers or chills, PND, orthopnea, flank pain, dysuria, hematuria, rash, or any other concerns Related Data Home Medications Medication Instructions Recorded Confirmed budesonide-formoterol HFA 160 See Rx Instructions .Route 06/30/22 08/27/22 mcg-4.5 mcg/actuation aerosol .COMPLEX Asthma inhaler (Symbicort) buprenorphine 8 mg-naloxone 2 mg 1 tab sublingual BID 08/09/22 08/27/22 sublingual tablet Previous Rx's Medication Instructions Recorded albuterol sulfate 90 mcg/actuation See Rx Instructions .Route 07/11/22 aerosol inhaler .COMPLEX #8.5 grams omeprazole 20 mg capsule,delayed 20 mg PO DAILY #30 caps 07/23/22 release gabapentin 100 mg capsule 200 mg PO TID 7 days #42 caps 08/09/22 gabapentin 400 mg capsule 400 mg PO TID 7 days #21 caps 08/09/22 ondansetron 4 mg disintegrating 4 mg PO Q8H PRN nausea and 08/14/22 tablet vomiting #30 tabs Allergies Allergy/AdvReac Type Severity Reaction Status Date / Time naproxen [NAPROXEN] Allergy Mild I-ITCHING Verified 08/27/22 13:37 [facility] Disclaimer: The information contained in this section may have been updated after the patient was seen,
--- NOTE | 2022-08-29 14:40 | PC.NURSE ---
Tray ordered. Okay per MD to eat. Oral fluids provided. Pt updated on plan of care.
--- NOTE | 2022-08-29 14:47 | PC.NURSE ---
Meal delivered by dietary.
[2022-08-29 14:49] LABS: Coronavirus 19, PCR Not Detected (NotDetected); Influenza A, PCR Not Detected (NotDetected); Influenza B, PCR Not Detected (NotDetected)
[2022-08-29 14:59] LABS: Basophils % 0.2 % (0.1-2.0); Eosinophils # 0.1 K/mm3 (0.0-0.4); Eosinophils % 1.5 % (0.1-12.0); Hematocrit 40.1 % (37.0-47.0); Hemoglobin 13.5 g/dL (12.2-16.2); Lymphocytes # 1.5 K/mm3 (0.7-4.5); Lymphocytes % 20.6 % (10-50); Mean Corpuscular HGB Conc 33.6 g/dL (31.8-35.4); Mean Corpuscular Hemoglobin 32.1 pg (27.0-31.2); Mean Corpuscular Volume 95.7 fl (81-99); Mean Platelet Volume 7.5 fl (7.4-10.4); Monocytes # 0.4 K/mm3 (0.1-1.0); Monocytes % 5.3 % (1.7-9.3); Neutrophils # 5.2 K/mm3 (1.8-7.8); Neutrophils % 72.5 % (37.0-80.0); Platelet Count 209 K/mm3 (142-424); Red Cell Distribution Width 14.5 % (11.5-17.5); White Blood Count 7.2 K/mm3 (4.8-10.8)
[2022-08-29 15:00] LABS: Anion Gap 5.9 mEq/L (5-15); Blood Urea Nitrogen 7 mg/dl (7-17); Calcium 8.7 mg/dl (8.4-10.2); Carbon Dioxide 25 mmol/L (22.0-30.0); Chloride 105 mmol/L (98-107); Creatinine Clearance Estimated 149 mL/min (50-200); Estimated Glomerular Filt Rate 139 ml/min (>60); GFR (African American) 168 ML/MIN (>60); Glucose 83 mg/dl (74-100); Potassium 3.9 mmoL/L (3.5-5.1); Sodium 132 mmol/L (136-145)
--- NOTE | 2022-08-29 15:03 | PC.NURSE ---
pt sitting up in bed, eating at this time
--- NOTE | 2022-08-29 15:11 | HMH.ITSTN ---
SPOKE TO ORDERING DOCTOR , PT HAS REQUESTED TO GET ALL LAB WORK BACK BEFORE PROCEEDING WITH [facility]
--- NOTE | 2022-08-29 16:32 | PC.NURSE ---
Per MD, discontinue CXR
[2022-08-29 17:03] VITALS: BP 123/71; PULSE 83; RESP 17; TEMP 36.6; O2SAT 99
== END 2022-08-29 17:06 | disposition home or self-care (01) ==
PROVIDERS: Emergency Provider Emergency Medicine; PCP Nurse Practitioner Family
DX: O99.512 Diseases of the respiratory system complicating pregnancy, second trimester (principal); R09.1 Pleurisy; Z3A.15 15 weeks gestation of pregnancy; F17.210 Nicotine dependence, cigarettes, uncomplicated; O99.332 Smoking (tobacco) complicating pregnancy, second trimester
CPT/HCPCS: 76815; 80048; 85025; 99284; 99285; C9803; U0003; U0005

== ENCOUNTER → 2022-12-16 14:11 | Outpatient (CLI) | payer OTHER, SELFPAY ==
[2022-12-16 14:58] LABS: Basophils % 0.1 % (0.1-2.0); Eosinophils # 0.1 K/mm3 (0.0-0.4); Eosinophils % 0.8 % (0.1-12.0); Hematocrit 37.7 % (37.0-47.0); Hemoglobin 12.2 g/dL (12.2-16.2); Lymphocytes # 1.5 K/mm3 (0.7-4.5); Lymphocytes % 17.1 % (10-50); Mean Corpuscular HGB Conc 32.4 g/dL (31.8-35.4); Mean Corpuscular Hemoglobin 31.4 pg (27.0-31.2); Mean Corpuscular Volume 96.8 fl (81-99); Mean Platelet Volume 7.8 fl (7.4-10.4); Monocytes # 0.5 K/mm3 (0.1-1.0); Monocytes % 5.7 % (1.7-9.3); Neutrophils # 6.8 K/mm3 (1.8-7.8); Neutrophils % 76.2 % (37.0-80.0); Platelet Count 217 K/mm3 (142-424); Red Cell Distribution Width 14.3 % (11.5-17.5); White Blood Count 8.9 K/mm3 (4.8-10.8)
[2022-12-16 15:07] LABS: Glucose,Fasting 112 mg/dl (74-100)
[2022-12-16 17:07] LABS: Glucose 1 Hour 163 mg/dL (74-100)
== END ==
PROVIDERS: PCP Emergency Medicine; Visit Provider Obstetrics & Gynecology
DX: Z34.93 Encounter for supervision of normal pregnancy, unspecified, third trimester (principal); Z3A.30 30 weeks gestation of pregnancy
CPT/HCPCS: 36415; 82951; 85025

== ENCOUNTER → 2023-01-10 11:49 | Outpatient (CLI) | payer OTHER, SELFPAY | PROVIDERS: PCP Emergency Medicine; Visit Provider Obstetrics & Gynecology | DX: O26.893 Other specified pregnancy related conditions, third trimester (principal); Z67.91 Unspecified blood type, Rh negative; Z3A.33 33 weeks gestation of pregnancy | CPT/HCPCS: 36415 ==

== ENCOUNTER 2023-01-11 12:34 | Outpatient (CLI) | payer OTHER, SELFPAY ==
[2023-01-11 12:45] VITALS: BP 125/74; PULSE 77; RESP 18; TEMP 36.7; O2SAT 98
[2023-01-11 13:00] VITALS: BP 122/82; PULSE 79; RESP 18; TEMP 36.6; O2SAT 98
--- NOTE | 2023-01-11 13:52 | PC.NURSE ---
12:45 Rhogam administered per order in [facility] Hip. Pt tolerated well. EXP date 02/28/2025 LOT# [id number]
== END 2023-01-11 13:00 | disposition home or self-care (01) ==
LOC: INF 12:34
PROVIDERS: PCP Emergency Medicine; Visit Provider Obstetrics & Gynecology
DX: O26.893 Other specified pregnancy related conditions, third trimester (principal); Z3A.34 34 weeks gestation of pregnancy; Z67.91 Unspecified blood type, Rh negative
CPT/HCPCS: 96372; G0463

== ENCOUNTER → 2023-01-15 23:30 | Outpatient (CLI) | payer OTHER, SELFPAY ==
[2023-01-17 23:09] LABS: Neisseria gonorrhoeae, NAA Negative (Negative)
== END ==
PROVIDERS: PCP Emergency Medicine; Visit Provider Obstetrics & Gynecology
DX: Z34.93 Encounter for supervision of normal pregnancy, unspecified, third trimester (principal); Z3A.34 34 weeks gestation of pregnancy
CPT/HCPCS: 87491; 87591

== ENCOUNTER → 2023-01-28 23:28 | Outpatient (CLI) | payer OTHER, SELFPAY | PROVIDERS: PCP Emergency Medicine; Visit Provider Obstetrics & Gynecology | DX: Z34.93 Encounter for supervision of normal pregnancy, unspecified, third trimester (principal); Z3A.36 36 weeks gestation of pregnancy | CPT/HCPCS: 86403 ==

== ENCOUNTER 2023-02-14 20:44 | Emergency (ER) | payer OTHER, SELFPAY ==
[2023-02-14 20:45] VITALS: BP 136/69; PULSE 95; RESP 16; TEMP 37.1; O2SAT 98; BMI 23.8
[2023-02-14 21:11] LABS: Basophils % 0.4 % (0.1-2.0); Eosinophils # 0.2 K/mm3 (0.0-0.4); Eosinophils % 3.2 % (0.1-12.0); Hematocrit 38.4 % (37.0-47.0); Lymphocytes # 1.8 K/mm3 (0.7-4.5); Lymphocytes % 24.9 % (10-50); Mean Corpuscular HGB Conc 31.3 g/dL (31.8-35.4); Mean Corpuscular Hemoglobin 31.4 pg (27.0-31.2); Mean Corpuscular Volume 100.2 fl (81-99); Mean Platelet Volume 7.8 fl (7.4-10.4); Monocytes # 0.5 K/mm3 (0.1-1.0); Monocytes % 6.9 % (1.7-9.3); Neutrophils # 4.6 K/mm3 (1.8-7.8); Neutrophils % 64.5 % (37.0-80.0); Platelet Count 409 K/mm3 (142-424); Red Blood Count 3.84 M/mm3 (4.20-5.40); Red Cell Distribution Width 14.3 % (11.5-17.5); White Blood Count 7.1 K/mm3 (4.8-10.8)
[2023-02-14 21:14] LABS: POC Glucose,Bedside 89 (70-110)
[2023-02-14 21:15] LABS: Alanine Aminotransferase 21 U/L (12-78); Albumin Level 3.4 g/dl (3.5-5.0); Albumin/Globulin Ratio 0.9 (1.1-1.8); Alkaline Phosphatase 176 U/L (38-126); Anion Gap 12.3 mEq/L (5-15); Aspartate Amino Transferase 35 U/L (14-36); Bilirubin,Total 0.2 mg/dl (0.2-1.3); Blood Urea Nitrogen 9 mg/dl (7-17); Calcium 8.5 mg/dl (8.4-10.2); Carbon Dioxide 25 mmol/L (22.0-30.0); Chloride 105 mmol/L (98-107); Creatinine Clearance Estimated 120 mL/min (50-200); Estimated Glomerular Filt Rate 112 ml/min (>60); GFR (African American) 136 ML/MIN (>60); Globulin 3.7 g/dL (1.3-3.2); Glucose 88 mg/dl (74-100); Potassium 3.3 mmoL/L (3.5-5.1); Sodium 139 mmol/L (136-145); Total Protein,Serum 7.1 g/dl (6.3-8.2)
--- NOTE | 2023-02-14 21:51 | HMH.EDGENADL ---
Discharge Plan Disposition Patient Disposition: Home, Self-Care Prescriptions Prescriptions: No Action omeprazole 20 mg capsule,delayed release(DR/EC) 20 mg PO DAILY Qty: 30 11RF buprenorphine-naloxone 8-2 mg film 1 film sublingual BID bupropion HCl [Wellbutrin SR] 150 mg tablet sustained-release 12 hr 150 mg PO DAILY Qty: 30 3RF PNV cmb#95-ferrous fumarate-FA 28 mg iron- 800 mcg tablet 1 tab PO DAILY Qty: 90 3RF loratadine [Claritin] 10 mg tablet 10 mg PO DAILY Qty: 30 3RF valacyclovir [Valtrex] 500 mg tablet 500 mg PO BID Qty: 60 1RF Referrals Follow up/Referrals: Tobi Serrano MD [Primary Care Provider] - See instructions Activity Restrictions/Add. Instructions Additional Instructions/Restrictions: Call your family doctor to establish care for this visit to the emergency department and schedule follow-up within 48 hours to ensure improvement. If you have any worsening of your condition or any other concerning signs or symptoms, return to the emergency department or your primary care doctor for further evaluation. Information on preeclampsia and eclampsia has been provided. If you have blood pressure 160/110, or have 140/90 sustained for extended period of time within 6 weeks of delivery, call your cleaning porter and discuss further. Clinical Impressions Clinical Impression: Hypertension Discharge ED Provider: [facility] Adult HPI General Chief complaint: Weakness Stated complaint: elevated bp and sugar Time Seen by Provider: 02/14/23 20:50 Mode of Arrival: Wheelchair Source of Information: Patient Limitations: No Limitations Description of Symptoms (Recalled from ER Triage Doc. by RN): pt states had a csection on 02/07 @ and her bladder was jojo during surgery and has a martinez. pt c/o weakness History of Present Illness HPI narrative: Is a 37-year-old female with a history of preeclampsia in a previous who had on 02/07 at [facility] complicated by bladder laceration currently with Martinez in place presenting with concern for high blood pressure. Patient states that she has had a headache on and off for the past week. Took her blood pressure today, it was 123/83 and got concerned. She remembered from previous having preeclampsia that high blood pressure was bad, so came to the ER for further evaluation. No current headache, nausea vomiting, vision changes, uncoordination, difficulty walking, confusion, or any concerns. The day after delivery, patient states that she had similar symptoms, has not had any since that time. Related Data Home Medications Medication Instructions Recorded Confirmed buprenorphine 8 mg-naloxone 2 mg 1 film sublingual BID 09/10/22 02/04/23 sublingual film Previous Rx's Medication Instructions Recorded omeprazole 20 mg capsule,delayed 20 mg PO DAILY #30 caps 07/23/22 release bupropion HCl 150 mg tablet,12 hr 150 mg PO DAILY #30 ea 10/08/22 sustained-release (Wellbutrin SR) loratadine 10 mg tablet (Claritin) 10 mg PO DAILY #30 tabs 10/31/22 vit no.95-ferrous 1 tab PO DAILY #90 tabs 10/31/22 fumarate 28 mg-folic acid 800 mcg tablet valacyclovir 500 mg tablet 500 mg PO BID #60 tabs 01/15/23 (Valtrex) Allergies Allergy/AdvReac Type Severity Reaction Status Date / Time naproxen [NAPROXEN] Allergy Mild I-ITCHING Verified 02/04/23 13:04 [facility] Disclaimer: The information contained in this section may have been updated after the patient was seen, as this information can be updated by other users. Medical History Anxiety Drug abuse History of ectopic Lumbar radicular pain Migraine Neuropathy Tobacco use Surgical History History of section x 4 Family History Other Alcoholism Asthma Cancer Heart attack Hyperlipidemia Hyperte
[2023-02-14 22:26] VITALS: BP 133/79; PULSE 87; RESP 16; TEMP 37.1; O2SAT 98
[2023-02-14 22:31] VITALS: BP 133/79; PULSE 84; RESP 18; TEMP 37.1; O2SAT 99
== END 2023-02-14 22:31 | disposition home or self-care (01) ==
PROVIDERS: Emergency Provider Emergency Medicine; PCP Emergency Medicine
DX: O15.2 Eclampsia complicating the puerperium (principal); O99.335 Smoking (tobacco) complicating the puerperium; O99.345 Other mental disorders complicating the puerperium; R53.1 Weakness; R51.9 Headache, unspecified; F41.9 Anxiety disorder, unspecified; F17.210 Nicotine dependence, cigarettes, uncomplicated
CPT/HCPCS: 80053; 82962; 85025; 99284

== ENCOUNTER 2023-06-23 12:20 | Emergency (ER) | payer OTHER, SELFPAY ==
[2023-06-23 13:50] VITALS: BP 114/57; PULSE 63; RESP 18; TEMP 36.8; O2SAT 97; BMI 23.6
--- NOTE | 2023-06-23 13:52 | ED_ITS ---
Discharge Plan Disposition Patient Disposition: Home, Self-Care Condition: Good Prescriptions Prescriptions: New ondansetron 4 mg Tablet,Disintegrating 4 mg PO Q8H PRN (Reason: Nausea) Qty: 12 0RF No Action buprenorphine-naloxone 8-2 mg film 1 film sublingual BID loratadine [Claritin] 10 mg tablet 10 mg PO DAILY Qty: 30 3RF omeprazole 20 mg capsule,delayed release(DR/EC) 20 mg PO DAILY Qty: 30 11RF gabapentin 400 mg capsule 400 mg PO TID Qty: 90 2RF Vraylar 1.5 mg capsule 1.5 mg PO DAILY Qty: 30 2RF Qelbree 200 mg capsule,extended release 24hr 200 mg PO DAILY Qty: 30 2RF atomoxetine 40 mg capsule 40 mg PO DAILY Referrals Follow up/Referrals: Halley Mtz PA [Primary Care Provider] - See instructions Activity Restrictions/Add. Instructions Additional Instructions/Restrictions: Drink plenty of fluids. Take tylenol or ibuprofen for pain or fever. Take the medications as directed. Follow up with your regular doctor. GO TO THE ER FOR ANY WORSENING SYMPTOMS Clinical Impressions Clinical Impression: Gastroenteritis Instructions Patient Instructions: Viral Gastroenteritis, DI for Viral Gastroenteritis -- Adult, Ondansetron Discharge ED Provider: Miller Garcia [facility] General Stated complaint: vomiting, diarrhea, Time Seen by Provider: 06/23/23 13:43 History of Present Illness Provider Complaint: She states that since last night she has had n/v/d. She denies any abdominal pain. Related Data Home Medications Medication Instructions Recorded Confirmed buprenorphine 8 mg-naloxone 2 mg 1 film sublingual BID 09/10/22 04/15/23 sublingual film atomoxetine 40 mg capsule 40 mg PO DAILY 04/15/23 04/15/23 Previous Rx's Medication Instructions Recorded loratadine 10 mg tablet (Claritin) 10 mg PO DAILY #30 tabs 02/19/23 omeprazole 20 mg capsule,delayed 20 mg PO DAILY #30 caps 02/19/23 release cariprazine 1.5 mg capsule 1.5 mg PO DAILY #30 caps 04/09/23 (Vraylar) gabapentin 400 mg capsule 400 mg PO TID #90 caps 04/09/23 viloxazine 200 mg capsule,extended 200 mg PO DAILY #30 caps 04/09/23 release 24 hr (Qelbree) ondansetron 4 mg disintegrating 4 mg PO Q8H PRN Nausea #12 tabs 06/23/23 tablet Allergies Allergy/AdvReac Type Severity Reaction Status Date / Time naproxen [NAPROXEN] Allergy Mild I-ITCHING Verified 06/23/23 14:04 [facility] Disclaimer: The information contained in this section may have been updated after the patient was seen, as this information can be updated by other users. Medical History Anxiety Drug abuse History of ectopic Lumbar radicular pain Migraine Neuropathy tubal ligation planned Rh negative status during Tobacco smoking affecting Tobacco use Surgical History H/O tubal ligation History of section Status post bilateral salpingectomy Status post delivery Family History Other Alcoholism Asthma Cancer Heart attack Hyperlipidemia Hypertension Substance abuse Social History Smoking Status: Current every day smoker tobacco type: cigarettes packs per day: 1 alcohol intake: never substance use type: former substance user current occupational status: unemployed Travel in the last 8 weeks: None number of children: 7 ROS Obtained: Yes All systems reviewed & no additional complaints except as documented Constitutional Constitutional: Denies chills, Denies fever(s) and Reports poor appetite ENT Ears, Nose, Mouth, and Throat: Denies dizziness and Denies sore throat Cardiovascular Cardiovascular: Denies dyspnea Respiratory Respiratory: Denies chest congestion, Denies cough and Denies dyspnea Gastrointestinal Gastrointestingal: Reports as per HPI, diarrhea, nausea and vomiting; Denies abdominal pain Genitourinary Female Genitourinary: Denies difficulty voiding, Denies dysuria, Denies hematuria, Denies urinary frequency, Denies urinary incontinence, Denies urinary hesitancy and Denies urinary urgency Musculoskeletal Musculoskeletal: Denies arthralgias Integumentary/Breasts Skin/Breast: Denies rash Neurologic Neurologic: Denies dizziness Physical Exam General General appearance: alert and in no apparent distress Head Head exam: atraumatic and normocephalic Eye Eye exam: Present normal appearance, PERRL and EOMI ENT ENT exam: Present normal exam, normal oropharynx, mucous membranes moist, TM's normal bilaterally and normal external ear exam Neck Neck exam: Present normal inspection, full ROM and trachea midline; Absent tenderness, meningismus or lymphadenopathy Chest Chest inspection: Present normal inspection and symmetric chest wall rise; A bsent tenderness, rash or abscess Respiratory Respiratory exam: Present normal lung sounds bilaterally; Absent respiratory distress, wheezes or stridor Cardiovascular Cardiovascular exam: Present regular rate and normal rhythm; Absent irregular rhythm, systolic murmur, diastolic murmur or JVD Abdominal Exam Abdominal exam: Present soft and hyperactive bowel sounds; Absent distention, tenderness, guarding, rebound, rigidity, psoas sign, obturator sign, heel tap sign, Thompson's sign, Rovsing's sign or tenderness at McBurney's Point Extremities Exam Extremities exam: Present normal inspection and full ROM; Absent tenderness Back Exam Back exam: Present normal inspection and full ROM; Absent tenderness, CVA tenderness (R) or CVA tenderness (L) Neurological Exam Neurological exam: Present alert, oriented X3 and CN II-XII intact Psychiatric Psychiatric exam: Present normal affect and normal mood Skin Skin exam: Present warm, dry, intact and normal color Lymphatic Lymphatic Findings: no adenopathy Medical Decision Making Medical Records Medical records reviewed: No I reviewed the patient's medical records. Aditya Inquiry Pt receiving controlled substance: No
[2023-06-23 14:23] LABS: UTC Strep Screen (Rapid) Negative (Negative)
[2023-06-23 14:24] LABS: UTC Influenza A Antigen Negative (Negative); UTC Influenza B Antigen Negative (Negative)
[2023-06-23 14:37] VITALS: BP 114/57; PULSE 63; RESP 18; TEMP 36.8
== END 2023-06-23 14:41 | disposition home or self-care (01) ==
PROVIDERS: Emergency Provider Nurse Practitioner Family; PCP Physician Assistant
DX: K52.9 Noninfective gastroenteritis and colitis, unspecified (principal); R11.2 Nausea with vomiting, unspecified; F17.210 Nicotine dependence, cigarettes, uncomplicated
CPT/HCPCS: 87804; 87880; 99212; 99214; G0463

== ENCOUNTER 2023-07-24 21:47 | Outpatient (CLI) | payer OTHER, SELFPAY ==
[2023-07-24 18:57] LABS: Basophils % 0.6 % (0.1-2.0); Eosinophils # 0.1 K/mm3 (0.0-0.4); Eosinophils % 2.2 % (0.1-12.0); Hematocrit 38.6 % (37.0-47.0); Hemoglobin 11.9 g/dL (12.2-16.2); Lymphocytes # 1.7 K/mm3 (0.7-4.5); Lymphocytes % 28.5 % (10-50); Mean Corpuscular HGB Conc 30.7 g/dL (31.8-35.4); Mean Corpuscular Hemoglobin 27.7 pg (27.0-31.2); Mean Corpuscular Volume 90.1 fl (81-99); Mean Platelet Volume 7.7 fl (7.4-10.4); Monocytes # 0.4 K/mm3 (0.1-1.0); Monocytes % 5.8 % (1.7-9.3); Neutrophils # 3.8 K/mm3 (1.8-7.8); Neutrophils % 62.9 % (37.0-80.0); Platelet Count 424 K/mm3 (142-424); Red Blood Count 4.28 M/mm3 (4.20-5.40); White Blood Count 6.1 K/mm3 (4.8-10.8)
[2023-07-24 19:12] LABS: Alanine Aminotransferase 18 U/L (12-78); Albumin Level 4.4 g/dl (3.5-5.0); Albumin/Globulin Ratio 1.7 (1.1-1.8); Alkaline Phosphatase 86 U/L (38-126); Anion Gap 13.4 mEq/L (5-15); Aspartate Amino Transferase 34 U/L (14-36); Bilirubin,Total 0.5 mg/dl (0.2-1.3); Blood Urea Nitrogen 9 mg/dl (7-17); Calcium 9.2 mg/dl (8.4-10.2); Carbon Dioxide 24 mmol/L (22.0-30.0); Chloride 107 mmol/L (98-107); Chol/HDL Ratio 3.9 (1-3.5); Cholesterol 172 mg/dl (140-200); Estimated Glomerular Filt Rate 112 ml/min (>60); GFR (African American) 135 ML/MIN (>60); Globulin 2.6 g/dL (1.3-3.2); Glucose 98 mg/dl (74-100); HDL Cholesterol 44 mg/dl (40-60); Potassium 4.4 mmoL/L (3.5-5.1); Sodium 140 mmol/L (136-145); Triglycerides 95 mg/dl (30-150); VLDL Cholesterol 19 mg/dL (0-40)
[2023-07-24 19:25] LABS: Direct LDL Cholesterol 94.46 mg/dL (100-129)
[2023-07-24 19:34] LABS: 25-OH Vitamin D, Total 21.3 ng/mL (30-100)
[2023-07-24 19:46] LABS: Thyroid Stimulating Hormone 0.33 uIU/mL (0.465-4.68)
== END 2023-07-24 23:59 ==
LOC: LAB.DROPOF 21:47
PROVIDERS: PCP Physician Assistant; Visit Provider Physician Assistant
DX: G62.89 Other specified polyneuropathies (principal); R10.9 Unspecified abdominal pain; R11.0 Nausea; R30.0 Dysuria; Z79.899 Other long term (current) drug therapy
CPT/HCPCS: 80053; 80061; 82306; 84443; 85025

== ENCOUNTER 2023-07-25 10:06 | Outpatient (CLI) | payer OTHER, SELFPAY ==
--- NOTE | 2023-07-25 10:12 | XR_ITS ---
FINAL REPORT CLINICAL HISTORY: nausea, abdominal pain FINDINGS: Chest: Single view was obtained. The heart and mediastinum are within normal limits. The lungs are clear. There is no pneumothorax. Abdomen: 2 views were obtained. There are no abnormally dilated loops of bowel. There is no free air. There are no abnormal calcifications. IMPRESSION: No acute process. Reviewed, Interpreted and Dictated by Jayce Webb III, MD Transcribed by Afshan Harden Authenticated and . [facility]
== END 2023-07-25 23:59 ==
PROVIDERS: PCP Physician Assistant; Visit Provider Physician Assistant
DX: R11.0 Nausea (principal); R10.9 Unspecified abdominal pain
CPT/HCPCS: 74021

== ENCOUNTER 2023-07-31 13:18 | Outpatient (CLI) | payer OTHER, SELFPAY ==
[2023-07-31 15:23] LABS: Triiodothryronine (T3) Uptake 34 % (23.5-40.5)
[2023-07-31 15:24] LABS: Free Thyroxine Index 2.3 ug/dL (5.93-13.13); T4 (Thyroxine) 6.8 ug/dl (5.53-11.0)
[2023-07-31 17:15] LABS: Thyroid Stimulating Hormone 0.24 uIU/mL (0.465-4.68)
== END 2023-07-31 23:59 ==
LOC: LAB 13:18
PROVIDERS: PCP Physician Assistant; Visit Provider Physician Assistant
DX: R63.0 Anorexia (principal); R79.89 Other specified abnormal findings of blood chemistry; Z68.24 Body mass index [BMI] 24.0-24.9, adult
CPT/HCPCS: 36415; 84436; 84443; 84479

== ENCOUNTER 2023-08-06 08:02 | Outpatient (CLI) | payer OTHER, SELFPAY ==
--- NOTE | 2023-08-06 08:20 | US_ITS ---
FINAL REPORT CLINICAL HISTORY: weight loss COMPARISON: None FINDINGS: Sonographic images of the right upper quadrant were obtained. The pancreas is within normal limits. There is mild fatty infiltration of the liver. The portal vein is at the upper limits of normal measuring 13 mm. The gallbladder is partially collapsed with borderline wall thickness of 3 mm. There is no evidence of gallstones. There is no evidence of biliary ductal dilatation.The common duct measures 5 mm. Limited images of the right kidney are unremarkable. IMPRESSION: Upper limits of normal portal vein. Mild fatty liver. Partially collapsed gallbladder with borderline wall thickness. Reviewed, Interpreted and Dictated by Jayce Webb III, MD Transcribed by Elena Sifuentes Authenticated and [facility]
== END 2023-08-06 23:59 ==
LOC: RAD 08:03
PROVIDERS: PCP Physician Assistant; Visit Provider Physician Assistant
DX: R63.4 Abnormal weight loss (principal); Z68.24 Body mass index [BMI] 24.0-24.9, adult
CPT/HCPCS: 76705

== ENCOUNTER 2023-08-08 11:06 | Outpatient (CLI) | payer OTHER, SELFPAY ==
--- NOTE | 2023-08-08 11:07 | US_ITS ---
FINAL REPORT TECHNIQUE: Sonographic images of the thyroid were obtained. CLINICAL HISTORY: low tsh level FINDINGS: THYROID ULTRASOUND The right thyroid gland is mildly enlarged and measures 4.7 x 1.5 x 1.5 cm. The parenchyma shows normal echogenicity. There is a solid, hypoechoic 8 x 8 x 5 mm nodule consistent with a TI-RADS 4 nodule. The left thyroid gland is enlarged and measures 4.7 x 1.6 x 1.5 cm. The parenchyma shows normal echogenicity. No dominant mass is seen. IMPRESSION: TI-RADS 4 nodule in the right lobe of the thyroid. Reviewed, Interpreted and Dictated by Jayce Webb III, MD Transcribed by Afshan Harden Authenticated and [facility]
== END 2023-08-08 23:59 ==
LOC: RAD 11:07
PROVIDERS: PCP Physician Assistant; Visit Provider Physician Assistant
DX: R79.89 Other specified abnormal findings of blood chemistry (principal)
CPT/HCPCS: 76536

== ENCOUNTER 2023-08-28 10:35 | Outpatient (CLI) | payer OTHER, SELFPAY ==
--- NOTE | 2023-08-28 10:36 | NM_ITS ---
FINAL REPORT CLINICAL HISTORY: Partially collapsed gallbladder with thickened wal 10:45 am 8.13 mci tc choletec 1.3 mcg of cck mild pain during cck COMPARISON: None FINDINGS: Sequential anterior projection images of the abdomen were obtained after the intravenous injection of 8.13 mCi technetium 99m Choletec. There is normal uptake of radiotracer by the liver. The bile ducts are visualized by 5 minutes. Gallbladder activity is seen by 5 minutes. Bowel activity is noted by 30 minutes. After 1 hour, 1.3 ?g of CCK was injected intravenously for calculation of gallbladder ejection fraction. The gallbladder ejection fraction is 79%, which is within normal limits. IMPRESSION: No evidence of cystic duct or bile duct obstruction. Normal gallbladder ejection fraction of 79%. Reviewed, Interpreted and Dictated by Jayce Webb III, MD Transcribed by Britt Carr Authenticated and . [facility]
[2023-08-28] MEDS: SODIUM CHLORIDE 0.9% 10ML SYR (RAD ONLY) 10 ML IV (12:43)
[2023-08-28] MEDS: ISOTOPE CHOLETECH;1 DOSE (UP TO 15 MCI) IV (12:43)
[2023-08-28] MEDS: SINCALIDE 1.3 MCG in 0.9 % SODIUM CHLORIDE 50 ML 100 MCG IV (12:43)
== END 2023-08-28 23:59 | disposition home or self-care (01) ==
LOC: RAD 10:36
PROVIDERS: PCP Physician Assistant; Visit Provider Physician Assistant
DX: K82.8 Other specified diseases of gallbladder (principal)
CPT/HCPCS: 78227; A9537; J2805

== ENCOUNTER 2023-09-15 13:34 | Emergency (ER) | payer OTHER, SELFPAY ==
[2023-09-15 14:05] VITALS: BP 110/51; PULSE 64; RESP 18; TEMP 36.8; O2SAT 98; BMI 24.3
--- NOTE | 2023-09-15 14:15 | EXP.UTC ---
Discharge Plan Disposition Patient Disposition: Home, Self-Care Condition: Good Prescriptions Prescriptions: New ondansetron 4 mg Tablet,Disintegrating 4 mg PO Q8H PRN (Reason: Nausea) Qty: 12 0RF No Action buprenorphine-naloxone 8-2 mg film 1 film sublingual BID loratadine [Claritin] 10 mg tablet 10 mg PO DAILY Qty: 30 3RF valacyclovir [Valtrex] 1 gram tablet 1,000 mg PO BID Qty: 60 2RF Orilissa 150 mg tablet 150 mg PO DAILY Qty: 30 2RF gabapentin 600 mg tablet 600 mg PO Q8H Qty: 90 2RF ergocalciferol (vitamin D2) 1,250 mcg (50,000 unit) capsule 1,250 mcg PO WEEKLY Qty: 14 3RF cholecalciferol (vitamin D3) 50 mcg (2,000 unit) capsule 50 mcg PO DAILY Qty: 90 3RF Referrals Follow up/Referrals: Halley Mtz PA [Primary Care Provider] - See instructions Activity Restrictions/Add. Instructions Additional Instructions/Restrictions: Drink plenty of fluids. Take tylenol or ibuprofen for pain or fever. Take the medications as directed. Follow up with your regular doctor. GO TO THE ER FOR ANY WORSENING SYMPTOMS Clinical Impressions Clinical Impression: Gastroenteritis Instructions Patient Instructions: Viral Gastroenteritis, DI for Viral Gastroenteritis -- Adult, Ondansetron Discharge ED Provider: Miller Garcia [facility] General Stated complaint: v/d body aches Time Seen by Provider: 09/15/23 14:14 History of Present Illness Provider Complaint: She states that since yesterday she has had n/v/d. she denies abdominal pain Related Data Home Medications Medication Instructions Recorded Confirmed buprenorphine 8 mg-naloxone 2 mg 1 film sublingual BID 09/10/22 09/15/23 sublingual film Previous Rx's Medication Instructions Recorded loratadine 10 mg tablet (Claritin) 10 mg PO DAILY #30 tabs 02/19/23 elagolix 150 mg tablet (Orilissa) 150 mg PO DAILY #30 tabs 07/22/23 valacyclovir 1 gram tablet 1,000 mg PO BID #60 tabs 07/22/23 (Valtrex) gabapentin 600 mg tablet 600 mg PO Q8H #90 tabs 07/24/23 cholecalciferol (vitamin D3) 50 50 mcg PO DAILY #90 caps 07/28/23 mcg (2,000 unit) capsule ergocalciferol (vitamin D2) 1,250 1,250 mcg PO WEEKLY #14 caps 07/28/23 mcg (50,000 unit) capsule ondansetron 4 mg disintegrating 4 mg PO Q8H PRN Nausea #12 tabs 09/15/23 tablet Allergies Allergy/AdvReac Type Severity Reaction Status Date / Time naproxen [NAPROXEN] Allergy Mild I-ITCHING Verified 09/15/23 14:36 [facility] Disclaimer: The information contained in this section may have been updated after the patient was seen, as this information can be updated by other users. Medical History tubal ligation planned Rh negative status during Tobacco smoking affecting History of ectopic Drug abuse Anxiety Migraine Neuropathy Lumbar radicular pain Tobacco use Surgical History Status post bilateral salpingectomy Status post delivery H/O tubal ligation History of section x 4 Family History Other Alcoholism Asthma Cancer Heart attack Hyperlipidemia Hypertension Substance abuse Social History Smoking Status: Current every day smoker tobacco type: cigarettes packs per day: 1 smoking status start date: Currently vapes, not using cigarettes alcohol intake: never substance use type: former substance user current occupational status: unemployed Travel in the last 8 weeks: None number of children: 7 ROS Obtained: Yes All systems reviewed & no additional complaints except as documented Constitutional Constitutional: Denies chills, Denies fever(s) and Reports poor appetite ENT Ears, Nose, Mouth, and Throat: Denies dizziness and Denies sore throat Cardiovascular Cardiovascular: Denies dyspnea Respiratory Respiratory: Denies chest congestion, Denies cough and Denies dyspnea Gastrointestinal Gastrointestingal: Reports as per HPI, cramping, diarrhea, nausea and vomiting; Denies abdominal pain Genitourinary Female Genitourinary: Denies difficulty voiding, Denies dysuria, Denies hematuria, Denies urinary frequency, Denies urinary incontinence, Denies urinary hesitancy and Denies urinary urgency Musculoskeletal Musculoskeletal: Denies arthralgias Integumentary/Breasts Skin/Breast: Denies rash Neurologic Neurologic: Denies dizziness Physical Exam General General appearance: alert and in no apparent distress Head Head exam: atraumatic and normocephalic Eye Eye exam: Present normal appearance, PERRL and EOMI ENT ENT exam: Present normal exam, normal oropharynx, mucous membranes moist, TM's normal bilaterally and normal external ear exam Neck Neck exam: Present normal inspection, full ROM and trachea midline; Absent tenderness, meningismus or lymphadenopathy Chest Chest inspection: Present normal inspection and symmetric chest wall rise; Absent tenderness, rash or abscess Respiratory Respiratory exam: Present normal lung sounds bilaterally; Absent respiratory distress, wheezes or stridor Cardiovascular Cardiovascular exam: Present regular rate and normal rhythm; Absent irregular rhythm, systolic murmur, diastolic murmur or JVD Abdominal Exam Abdominal exam: Present soft and hyperactive bowel sounds; Absent distention, tenderness, guarding, rebound, rigidity, psoas sign, obturator sign, heel tap sign, Thompson's sign, Rovsing's sign or tenderness at McBurney's Point Extremities Exam Extremities exam: Present normal inspection and full ROM; Absent tenderness Back Exam Back exam: Present normal inspection and full ROM; Absent tenderness, CVA tenderness (R) or CVA tenderness (L) Neurological Exam Neurological exam: Present alert, oriented X3 and CN II-XII intact Psychiatric Psychiatric exam: Present normal affect and normal mood Skin Skin exam: Present warm, dry, intact and normal color Lymphatic Lymphatic Findings: no adenopathy Medical Decision Making Medical Records Medical records reviewed: No I reviewed the patient's medical records. Aditya Inquiry Pt receiving controlled substance: No Lab Data Lab results reviewed: Yes I reviewed the patient's lab results.
[2023-09-15 14:40] LABS: UTC Influenza A Antigen Negative (Negative); UTC Influenza B Antigen Negative (Negative); UTC Strep Screen (Rapid) Negative (Negative)
[2023-09-15 15:02] VITALS: BP 110/51; PULSE 64; RESP 18; TEMP 36.8; O2SAT 98
== END 2023-09-15 15:02 | disposition home or self-care (01) ==
PROVIDERS: Emergency Provider Nurse Practitioner Family; PCP Physician Assistant
DX: A08.4 Viral intestinal infection, unspecified (principal); R11.2 Nausea with vomiting, unspecified; R19.7 Diarrhea, unspecified
CPT/HCPCS: 87804; 87880; 99212; 99214; G0463

== ENCOUNTER 2023-09-23 13:35 | Outpatient (CLI) | payer OTHER, SELFPAY ==
[2023-09-23 15:26] LABS: Free T4 (Free Thyroxine) 0.78 ng/dl (0.78-2.19)
[2023-09-23 15:39] LABS: Thyroid Stimulating Hormone 0.49 uIU/mL (0.465-4.68)
== END 2023-09-23 23:59 | disposition home or self-care (01) ==
LOC: LAB 13:36
PROVIDERS: PCP Physician Assistant; Visit Provider Nurse Practitioner
DX: E04.1 Nontoxic single thyroid nodule (principal)
CPT/HCPCS: 36415; 84439; 84443

== ENCOUNTER 2023-10-03 09:46 | Outpatient (CLI) | payer OTHER, SELFPAY ==
--- NOTE | 2023-10-03 09:47 | FL_ITS ---
FINAL REPORT CLINICAL HISTORY: difficulty swallowing ft 1:05 dap 19.02 FINDINGS: ESOPHAGRAM HISTORY: Difficulty swallowing. PROCEDURE: The patient ingested barium. Effervescent crystals were also administered. Spot films were obtained. Number of images: 9 Fluoro time: 1 minute 5 seconds DAP: 19.0 to uGym[employer]. FINDINGS: The examination is markedly limited as the patient was unable to tolerate large boluses of contrast. In addition, the patient was unable to swallow contrast of the recumbent position. No obvious esophageal stricture is identified. A 13 mm barium tablet passes through the esophagus and into the stomach without delay. IMPRESSION: Limited exam as above. No obvious esophageal stricture identified. Films reviewed , interpreted and dictated by Dr. Webb. Transcribed by Hong Salas PA-C. Reviewed, Interpreted and Dictated by Jayce Webb III, MD Transcribed by JEAN CLAUDE Casas Authenticated and . [facility]
[2023-10-03] MEDS: BARIUM SULFATE(LIQUID E-Z-PAQUE);355ML BOTTLE 355 ML PO (10:06)
[2023-10-03] MEDS: E-Z-GASII EFFERVESCENT GRANULES;1PK 1 EACH PO (10:06)
== END 2023-10-03 23:59 | disposition home or self-care (01) ==
LOC: RAD 09:47
PROVIDERS: PCP Physician Assistant; Visit Provider Otolaryngology
DX: R13.19 Other dysphagia (principal); R09.A2 Foreign body sensation, throat
CPT/HCPCS: 74220

== ENCOUNTER 2023-10-26 16:14 | Emergency (ER) | payer SELFPAY ==
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
[2023-10-26] MEDS: METHOCARBAMOL 500MG TABLET 500 MG PO (16:46)
[2023-10-26] MEDS: ACETAMINOPHEN 500MG TAB 1000 MG PO (16:47)
[2023-10-26 17:03] VITALS: BP 127/51; PULSE 89; RESP 16; TEMP 36.6; O2SAT 99; BMI 25.0
[2023-10-26] MEDS: DOXYCYCLINE HYCL 100 MG TABLET PO (18:30)
[2023-10-26 18:43] VITALS: BP 108/61; PULSE 66; RESP 15; TEMP 36.6; O2SAT 99
== END 2023-10-26 18:44 | disposition home or self-care (01) ==
PROVIDERS: Emergency Provider Emergency Medicine; PCP Physician Assistant
DX: J18.9 Pneumonia, unspecified organism (principal); M54.59 Other low back pain; M54.6 Pain in thoracic spine; M54.2 Cervicalgia; F17.210 Nicotine dependence, cigarettes, uncomplicated; V49.40XA Driver injured in collision with unspecified motor vehicles in traffic accident, initial encounter; Y92.410 Unspecified street and highway as the place of occurrence of the external cause
CPT/HCPCS: 70450; 72125; 72128; 72131; 99285

== ENCOUNTER 2023-12-04 08:12 | Day surgery (SDC) | payer OTHER, SELFPAY ==
[2023-12-02 13:20] VITALS: BMI 25.0
[2023-12-04] VITALS (7 sets, daily range): BP systolic 91–131; BP diastolic 46–71; PULSE 53–62; RESP 18; TEMP 36.5–36.9; O2SAT 96–99; BMI 25.0
[2023-12-04 08:43] LABS: Urine Pregnancy, HCG Qual. Negative (Negative)
--- NOTE | 2023-12-04 09:01 | P.PNANES_ITS ---
[facility] Disclaimer: The information contained in this section may have been updated after the patient was seen, as this information can be updated by other users. Medical History History of COVID-19 History of gastroesophageal reflux (GERD) Allergies History of anemia Hyperthyroidism Thyroid nodule History of thyroid nodule tubal ligation planned Rh negative status during Tobacco smoking affecting History of ectopic Drug abuse Anxiety Migraine Neuropathy Lumbar radicular pain Tobacco use Surgical History Status post bilateral salpingectomy Status post delivery H/O tubal ligation History of section Family History (Updated 12/02/23 @ 13:03 by Daja Reed RN) Other Alcoholism Asthma Cancer Heart attack Hyperlipidemia Hypertension Scoliosis Substance abuse Social History (Updated 12/02/23 @ 13:04 by Daja Reed RN) Smoking Status: Current every day smoker tobacco type: cigarettes packs per day: 1 smoking status start date: Currently vapes, not using cigarettes alcohol intake: never substance use type: former substance user current occupational status: unemployed Travel in the last 8 weeks: None number of children: 7 caffeine: Yes [facility] Anesthesia Checklist Patient Identification Patient Identification: Arm Band Structural Data Admitted From: Home Planned Operative Procedure/s: EGD/Colonoscopy Consent for Planned Operative Procedure(s) Verified: Yes Verified Documents: Surgical Consent and History and Physical NPO Status Verified Time NPO: 00:00 Additional verifications Anesthesia Reactions: No Airway Assessment Mallampati Score:: Class II C-Spine Mobility Assessed: Yes TMJ Mobility Assessed: Yes Dentition: Edentulous Neurological Assessment Level of Consciousness: Awake, Alert and Appropriate Anesthesia Plan Anesthesia Risk discussed: Yes Anesthesia Plan: Verified ASA Class: II Anesthesia Type: MAC
[2023-12-04] MEDS: LACTATED RINGERS 1000ML 1,000 ML 100 ML IV (09:05)
--- NOTE | 2023-12-04 09:23 | [facility].SCOPE ---
Procedure: Date: 12/04/23 Patient Date of :: 1985 Procedure Performed:: EGD and dilation Indications:: Dysphagia Performing Provider:: Wilton Bates MD Referring Provider:: Fatuma Bates APRN Sedation:: Propofol Procedure:: The gastroscope was gently passed through the incisoral orifice into the oral cavity and under direct visualization the esophagus was intubated. The endoscope was passed down the esophagus, through the stomach, and into the duodenum. Color, texture, mucosa, and anatomy of the esophagus, stomach, and duodenum were carefully examined with the scope. Findings:: Oropharynx: normal Esophagus: normal with distal spasms, empiric dilation performed with 56 F bougie EG Junction: intact at 40 cm Cardia: normal Fundus: normal Body: normal Antrum: normal Duodenal bulb: normal Duodenum (second and third portion): normal Impression: Symptomatic dysphagia treated with bougie dilation Recommendations:: Return for repeat dilation therapy when clinically indicated Complications:: None Estimated blood obtained (mL): 0 Colonoscopy Component Colonoscopy Component Was a colonoscopy performed during today's procedure?: No
--- NOTE | 2023-12-04 09:26 | HMH.SCOPE ---
Procedure: Date: 12/04/23 Patient Date of :: 1985 Procedure Performed:: Diagnostic colonoscopy Indications:: Chronic costipation, bloating Performing Provider:: Wilton Bates MD Referring Provider:: Fatuma Bates APRN Sedation:: Propofol Procedure:: After placing the patient in the left lateral decubitus position, the colonoscopy was gently inserted into the rectum and under direct visualization advanced only to the mid sigmoid where further advancement was found not possible to large amount of retained stool. Note: Patient did NOT complete her prep. Findings:: Anal canal: normal, some stool residuals Rectum: normal, some stool residuals Sigmoid colon: Visualization not possible due to large amount of residual stools Descending colon: Not seen Splenic flexure: Not seen Transverse colon: Not seen Hepatic flexure: Not seen Ascending colon: Not seen Cecum: Not seen Terminal ileum: not visualized Impression: Inadequately preped colon, procedure cancelled Recommendations:: Repeat colonoscopy only after a completed colon prep Complications:: None Estimated blood obtained (mL): 0 Colonoscopy Component Colonoscopy Component Was a colonoscopy performed during today's procedure?: Yes Recommended follow up colonoscopy of at least 10 years?: No If no, follow up colonoscopy recommended in ___ years?: 0 Reason for not recommending >/= 10 yr follow-up interval?: Current procedure cancelled. Needs adequate colon prep.
== END 2023-12-04 10:06 | disposition home or self-care (01) ==
PROVIDERS: PCP Physician Assistant; Visit Provider Internal Medicine Gastroenterology
PROC: 0DJ08ZZ Inspection of Upper Intestinal Tract, Via Natural or Artificial Opening Endoscopic (ICD-10-PCS; CPT 43235; principal; 2023-12-04 09:00)
DX: K59.09 Other constipation; R14.0 Abdominal distension (gaseous)
CPT/HCPCS: 43450; 45378; 81025; J7120

== ENCOUNTER 2023-12-25 10:55 | Outpatient (CLI) | payer OTHER, SELFPAY ==
[2023-12-25 11:45] LABS: Albumin Level 4.8 g/dl (3.5-5.0); Chloride 108 mmol/L (98-107); Sodium 139 mmol/L (136-145)
[2023-12-25 11:48] LABS: Alanine Aminotransferase 18 U/L (12-78); Albumin/Globulin Ratio 1.7 (1.1-1.8); Alkaline Phosphatase 65 U/L (38-126); Aspartate Amino Transferase 36 U/L (14-36); Bilirubin,Total 0.7 mg/dl (0.2-1.3); Blood Urea Nitrogen 10 mg/dl (7-17); Calcium 9.1 mg/dl (8.4-10.2); Carbon Dioxide 25 mmol/L (22.0-30.0); Estimated Glomerular Filt Rate 80 ml/min (>60); GFR (African American) 97 ML/MIN (>60); Globulin 2.9 g/dL (1.3-3.2); Glucose 92 mg/dl (74-100); Total Protein,Serum 7.7 g/dl (6.3-8.2)
[2023-12-29 14:01] LABS: HBsAg Screen Negative (Negative); HCV Ab Reactive (Non Reactive); Hep A Ab, IGM Negative (Negative); Hep B Core Ab, IgM Negative (Negative)
[2024-01-09 09:38] LABS: ALT (SGPT) P5P 17 IU/L (0-40); AST (SGOT) P5P 28 IU/L (0-40); Alpha 2-Macroglobulins, Qn 372 mg/dL (110-276); Apolipoprotein A-1 138 mg/dL (116-209); Bilirubin, Total 0.1 mg/dL (0.0-1.2); Cholesterol, Total 185 mg/dL (100-199); Fibrosis Score 0.07 (0.00-0.21); GGT 6 IU/L (0-60); Glucose 91 mg/dL (70-99); Haptoglobin 138 mg/dL (33-278); Triglycerides 94 mg/dL (0-149)
== END 2023-12-25 23:59 | disposition home or self-care (01) ==
LOC: LAB 10:56
PROVIDERS: PCP Physician Assistant; Visit Provider Nurse Practitioner
DX: R16.0 Hepatomegaly, not elsewhere classified (principal); K76.0 Fatty (change of) liver, not elsewhere classified
CPT/HCPCS: 36415; 80053; 80074

== ENCOUNTER 2023-12-30 13:05 | Outpatient (CLI) | payer OTHER, SELFPAY ==
--- NOTE | 2023-12-30 13:08 | XR_ITS ---
FINAL REPORT CLINICAL HISTORY: low back pain COMPARISON: None FINDINGS: AP and lateral views of the lumbar spine were obtained. There is no prior exam for comparison. There is no acute fracture or malalignment. Vertebral body height is preserved. Mild degenerative change is present with small osteophytes. No acute paraspinal abnormality. IMPRESSION: Mild degenerative change without acute bony abnormality. Reviewed, Interpreted and Dictated by Jayce Webb III, MD Transcribed by Britt Carr Authenticated and . [facility]
== END 2023-12-30 23:59 | disposition home or self-care (01) ==
LOC: RAD 13:06
PROVIDERS: PCP Physician Assistant; Visit Provider Physician Assistant
DX: M54.50 Low back pain, unspecified (principal)
CPT/HCPCS: 72110

== ENCOUNTER 2024-01-07 14:08 | Outpatient (RCR) | payer OTHER, SELFPAY ==
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
== END 2024-01-07 14:10 | disposition home or self-care (01) ==
LOC: PT 14:08
PROVIDERS: Visit Provider Physician Assistant
DX: M54.50 Low back pain, unspecified (principal)
CPT/HCPCS: 97110; 97163

== ENCOUNTER 2024-02-09 13:20 | Outpatient (CLI) | payer OTHER, SELFPAY ==
--- NOTE | 2024-02-09 13:20 | US_ITS ---
FINAL REPORT CLINICAL HISTORY: History of Thyroid Nodules COMPARISON: 08/08/2023 FINDINGS: THYROID ULTRASOUND FINDINGS: SIZE: Normal ECHOGENICITY: Homogeneous LESIONS: Stable appearing TR 4 nodule in the right lobe measures up to 8 mm and is unchanged from the prior exam. No nodules in the left thyroid lobe. OTHER: No additional findings. IMPRESSION: No significant change in right thyroid nodule. TI-RADS: TI-RADS 4 RECOMMENDATIONS: No specific recommendation for a nodule of this size. Reviewed, Interpreted and Dictated by Vanessa Obrien MD Transcribed by Afshan Harden Authenticated and [facility]
== END 2024-02-09 23:59 | disposition home or self-care (01) ==
LOC: RAD 13:20
PROVIDERS: PCP Physician Assistant; Visit Provider Otolaryngology
DX: E05.90 Thyrotoxicosis, unspecified without thyrotoxic crisis or storm (principal); E04.1 Nontoxic single thyroid nodule
CPT/HCPCS: 76536

== ENCOUNTER 2024-04-13 20:21 | Emergency (ER) | payer OTHER, SELFPAY ==
[2024-04-13 20:32] VITALS: BP 109/53; PULSE 83; RESP 20; TEMP 36.8; O2SAT 99; BMI 25.3
--- NOTE | 2024-04-13 21:10 | HMH.EDGENADL ---
Discharge Plan Disposition Patient Disposition: Home, Self-Care Condition: Good Prescriptions Prescriptions: New clotrimazole 1 % cream 1 applic topical BID 14 Days Qty: 30 0RF No Action buprenorphine-naloxone [Suboxone] 8-2 mg film 1 film sublingual BID famotidine 40 mg tablet 40 mg PO HS Qty: 30 3RF omeprazole 40 mg capsule,delayed release(DR/EC) 40 mg PO DAILY Qty: 90 2RF gabapentin 600 mg tablet 600 mg PO Q8H Qty: 90 1RF Linzess 72 mcg Capsule 145 mcg PO DAILY PRN (Reason: .) sumatriptan succinate [Imitrex] 100 mg tablet 100 mg PO DAILY PRN (Reason: migraines) ondansetron 4 mg Tablet,Disintegrating 4 mg PO Q8H PRN (Reason: Nausea) Qty: 12 0RF Referrals Follow up/Referrals: Halley Mtz PA [Primary Care Provider] - See instructions Activity Restrictions/Add. Instructions Additional Instructions/Restrictions: Your rash looks like it is likely due to a fungal infection of her neck. I prescribed a topical antifungal ointment for you to use. Please use it as directed. You may take Benadryl as needed for itching. Please return with any new or worsening symptoms. Clinical Impressions Clinical Impression: Tinea Instructions Patient Instructions: DI for Skin Abscess Print Language Print Language: German Discharge ED Provider: Kt Ni Adult HPI General Chief complaint: Skin/Abscess/Foreign Body Stated complaint: rash on face Time Seen by Provider: 04/13/24 21:10 Mode of Arrival: Ambulatory Source of Information: Patient Limitations: No Limitations Description of Symptoms (Recalled from ER Triage Doc. by RN): Pt states she had a rash on her face and neck Has photos on her phone Rash has resolved now History of Present Illness HPI narrative: Patient presents for evaluation of annular lesion on neck area which she noticed shortly prior to arrival, it was pruritic in nature. She exhibits photos of annular lesion with surrounding erythema, she has had these lesions resolved since initial onset spontaneously. Denies any exacerbating or alleviating factors although does note being exposed to mold recently. Denies history of similar symptoms no fevers or chills or lesions elsewhere Please note that above description of symptoms, in this electronic medical record under categorization of recalled from ER triage doctor by RN are reflective of an initial nursing assessment, however, is not reflective of my full history and physical exam that was personally taken and clarified. Consequentially, this preceding description of symptoms, which may include the patient's categorized chief complaint in the EMR, do not reflect my personal clinical impression, and the ultimate description of history of present illness and patient stated complaints should be deferred to this section of the note. Unless stated otherwise or congruent with this section of the note, additional signs, symptoms, or incongruence should be interpreted as inaccurate with my clinical impression. Related Data Home Medications ?Medication ?Instructions ?Recorded ?Confirmed buprenorphine 8 mg-naloxone 2 mg 1 film sublingual BID 09/10/22 03/08/24 sublingual film (Suboxone) linaclotide 72 mcg capsule 145 mcg PO DAILY PRN . 12/02/23 03/08/24 (Linzess) sumatriptan succinate 100 mg 100 mg PO DAILY PRN migraines 12/02/23 03/08/24 tablet (Imitrex) Previous Rx's ?Medication ?Instructions ?Recorded ondansetron 4 mg disintegrating 4 mg PO Q8H PRN Nausea #12 tabs 09/15/23 tablet omeprazole 40 mg capsule,delayed 40 mg PO DAILY gerd #90 caps 12/22/23 release gabapentin 600 mg tablet 600 mg PO Q8H #90 tabs 02/04/24 famotidine 40 mg tablet 40 mg PO HS #30 tabs 03/08/24 clotrimazole 1 % topical cream 1 applic topical BID 2 weeks #30 04/13/24 grams Allergies Allergy/AdvReac Type Severity Reaction Status Date / Time naproxen (NAPROXEN) Allergy Mild I-ITCHING Verified 03/08/24 14:21 tramadol (From Ultram) Allergy Unknown Verified 03/08/24 14:21 allergy reaction [facility] Disclaimer: The information contained in this section may have been updated after the patient was seen, as this information can be updated by other users. Medical History Change in bowel movement Abdominal pain Dysphagia History of COVID-19 History of gastroesophageal reflux (GERD) Allergies History of anemia Hyperthyroidism Thyroid nodule History of thyroid nodule tubal ligation planned Rh negative status during Tobacco smoking affecting History of ectopic Drug abuse Anxiety Migraine Neuropathy Lumbar radicular pain Tobacco use Surgical History Status post bilateral salpingectomy Status post delivery H/O tubal ligation History of section x 4 Family History Other Alcoholism Asthma Cancer Heart attack Hyperlipidemia Hypertension Scoliosis Substance abuse Social History Smoking Status: Current every day smoker tobacco type: cigarettes packs per day: 1 smoking status start date: Currently vapes, not using cigarettes alcohol intake: never substance use type: former substance user current occupational status: unemployed Travel in the last 8 weeks: None number of children: 7 caffeine: Yes Other Medical History Have you received the Flu Vaccine for this season: No Have you received the Pneumonia Vaccine: No ROS Obtained: Yes other As per HPI Physical Exam General General appearance: alert and in no apparent distress Head Head exam: atraumatic and normocephalic Eye Eye exam: Present normal appearance Neck Neck exam: Present normal inspection Chest Chest inspection: Present normal inspection and symmetric chest wall rise Respiratory Respiratory exam: Present normal lung sounds bilaterally; Absent respiratory distress Cardiovascular Cardiovascular exam: Present regular rate and normal rhythm Abdominal Exam Abdominal exam: Present soft Neurological Exam Neurological exam: Present alert and oriented X3 Psychiatric Psychiatric exam: Present normal affect and normal mood Skin Skin exam: Present warm and dry Medical Decision Making Medical Records Medical records reviewed: Yes I reviewed the patient's medical records. Screening: Per USPSTF and CDC recommendations, given the prevalence of disease in our region, it is our hospital?s policy to screen for HIV and viral Hepatitis for all patients aged 18 and over and those with ongoing risk factors. Aditya Inquiry Pt receiving controlled substance: No Vital Signs: 04/13/24 20:32 04/13/24 21:33 Temperature 98.3 F 98.3 F Temperature Source Oral Oral Pulse Rate 83 Pulse Rate [Left Brachial] 83 Respiratory Rate 20 20 Blood Pressure 109/52 L Blood Pressure [Left Arm] 109/53 L Blood Pressure Mean [Left Arm] 71 Blood Pressure Source [Left Arm] Automatic Cuff Blood Pressure Position Sitting Blood Pressure Position [Left Arm] Sitting 02 Sat by Pulse Oximetry 99 Oxygen Delivery Method Room Air Room Air Orders (Tests/Meds): ORDERS Category Date Time Status HIV (1&2) Antibody Rapid Stat Lab 04/13/24 20:36 Ordered Medical Decision Narrative: Patient with history and exam per above presenting for evaluation of rash on neck Diagnoses considered include tinea, ringworm, among others My clinical impression at this time is most consistent with tinea I discussed my clinical impression with patient and answered all questions. At this time, the evidence for any other entities in the differential is insufficient to warrant any further testing or ED observation. This was explained to the patient. The patient was advised that persistent or worsening symptoms require further evaluation. Critical Care Critical Care Time Critical Care Time: No
[2024-04-13 21:33] VITALS: BP 109/52; PULSE 83; RESP 20; TEMP 36.8; O2SAT 99
== END 2024-04-13 21:39 | disposition home or self-care (01) ==
PROVIDERS: Emergency Provider Emergency Medicine; PCP Physician Assistant
DX: B35.4 Tinea corporis (principal); R21 Rash and other nonspecific skin eruption
CPT/HCPCS: 99283

== ENCOUNTER 2024-04-14 16:00 | Outpatient (RCR) | payer OTHER, SELFPAY ==
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
== END 2024-04-14 23:59 | disposition home or self-care (01) ==
LOC: PT 16:00
PROVIDERS: PCP Physician Assistant; Visit Provider Physician Assistant
DX: M54.16 Radiculopathy, lumbar region (principal)
CPT/HCPCS: 97014; 97110; 97163; G0283

== ENCOUNTER 2024-04-27 07:47 | Outpatient (CLI) | payer OTHER, SELFPAY ==
--- NOTE | 2024-04-27 07:52 | MR_ITS ---
FINAL REPORT CLINICAL HISTORY: LBP , RADIATES DOWN BOTH LEGS FINDINGS: Multiplanar MR imaging of the lumbar spine was performed without contrast. On the sagittal T2-weighted images, mild disc degeneration is seen at L4-5. Mild rightward curvature is noted. There is no evidence of fracture. There is a hemangioma in L3. The conus has an unremarkable appearance. No significant canal stenosis is identified. L1-2: No significant central canal stenosis or neuroforaminal narrowing. L2-3: No significant central canal stenosis or neuroforaminal narrowing. L3-4: No significant central canal stenosis or neuroforaminal narrowing. L4-5: An annular bulge is present. There is mild bilateral neuroforaminal narrowing. L5-S1: An annular disc bulge with facet arthropathy is present. There is mild left neuroforaminal narrowing. IMPRESSION: Degenerative disc disease most pronounced at L4-5 and L5-S1. Reviewed, Interpreted and Dictated by Jayce Webb III, MD Transcribed by Afshan Harden Authenticated and [facility]
== END 2024-04-27 23:59 | disposition home or self-care (01) ==
LOC: RAD 07:48
PROVIDERS: PCP Physician Assistant; Visit Provider Physician Assistant
DX: M54.16 Radiculopathy, lumbar region (principal)
CPT/HCPCS: 72148

== ENCOUNTER 2024-05-31 14:26 | Outpatient (POV) | payer OTHER, SELFPAY ==
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
[2024-05-31 14:37] VITALS: BP 95/37; PULSE 71; RESP 16; O2SAT 97; BMI 25.2
== END 2024-05-31 23:59 | disposition home or self-care (01) ==
LOC: SC.PAIN 14:27
PROVIDERS: PCP Physician Assistant; Visit Provider Nurse Practitioner Family
DX: M51.362 Other intervertebral disc degeneration, lumbar region with discogenic back pain and lower extremity pain (principal); M25.552 Pain in left hip; M25.551 Pain in right hip; M46.1 Sacroiliitis, not elsewhere classified; F17.200 Nicotine dependence, unspecified, uncomplicated; Z73.89 Other problems related to life management difficulty
CPT/HCPCS: 99202; G0463

== ENCOUNTER 2024-08-23 15:28 | Outpatient (CLI) | payer OTHER, SELFPAY ==
--- NOTE | 2024-08-23 15:30 | US_ITS ---
FINAL REPORT CLINICAL HISTORY: complaints her thyroid is getting worse -- f/u thyroid nodule COMPARISON: 08/08/2023 and 02/09/2024 thyroid ultrasound exams FINDINGS: THYROID ULTRASOUND: The left lobe of the thyroid gland has a volume of 5.7 cc. No evidence of mass or nodule is identified in the left lobe of the thyroid. The right lobe of the thyroid has a volume of 5.8 cc. There is a single nodule which is redemonstrated from both of the prior ultrasound exams, a 9 x 8 x 5 mm hypoechoic TI-RADS category 4 nodule, stable in appearance when compared to the prior exam. No new nodules or masses are identified. The isthmus of the thyroid gland is unremarkable in appearance and measures 3.2 mm in thickness. IMPRESSION: Single TI-RADS category 4 nodule in the right lobe of the thyroid gland, stable in appearance on 2 prior ultrasound exams. No follow-up according to TI-RADS criteria is necessary at this time, due to small size and characteristics the nodule is likely benign. Reviewed, Interpreted and Dictated by Vanessa Obrien MD Transcribed by Britt Carr Authenticated and [facility]
== END 2024-08-23 23:59 | disposition home or self-care (01) ==
LOC: RAD 15:29
PROVIDERS: PCP Physician Assistant; Visit Provider Nurse Practitioner
DX: E04.1 Nontoxic single thyroid nodule (principal)
CPT/HCPCS: 76536

== ENCOUNTER 2024-10-12 13:07 | Outpatient (CLI) | payer OTHER, SELFPAY ==
[2024-10-12 13:48] LABS: Basophils % 0.8 % (0.1-2.0); Eosinophils # 0.1 Kmm3 (0.0-0.4); Eosinophils % 1.9 % (0.1-12.0); Hematocrit 35.5 % (37.0-47.0); Hemoglobin 10.3 g/dL (12.2-16.2); Immature Granulocytes # 0.01 10^3uL; Immature Granulocytes % 0.2 %; Lymphocytes # 1.4 K/mm3 (0.7-4.5); Lymphocytes % 27.7 % (10-50); Mean Corpuscular Hemoglobin 22.9 pg (27.0-31.2); Mean Corpuscular Volume 78.9 fl (81-99); Mean Platelet Volume 8.9 fl (7.4-10.4); Monocytes # 0.4 K/mm3 (0.1-1.0); Monocytes % 7.9 % (1.7-9.3); Neutrophils # 3.2 K/mm3 (1.8-7.8); Neutrophils % 61.5 % (37.0-80.0); Nucleated Red Blood Cells # 0 10^3/uL; Nucleated Red Blood Cells % 0 %; Platelet Count 317 K/mm3 (142-424); Red Cell Distribution Width 17.4 % (11.5-17.5); Red Cell Distribution Width-SD 50.2 fL; White Blood Count 5.2 K/mm3 (4.8-10.8)
[2024-10-12 14:17] LABS: Alanine Aminotransferase 15 U/L (12-78); Albumin Level 4.7 g/dl (3.5-5.0); Albumin/Globulin Ratio 1.9 (1.1-1.8); Alkaline Phosphatase 56 U/L (38-126); Anion Gap 11.2 mEq/L (5-15); Aspartate Amino Transferase 34 U/L (14-36); Bilirubin,Total 0.3 mg/dl (0.2-1.3); Blood Urea Nitrogen 8 mg/dl (7-17); Calcium 9.1 mg/dl (8.4-10.2); Carbon Dioxide 28 mmol/L (22.0-30.0); Chloride 103 mmol/L (98-107); Estimated Glomerular Filt Rate 93 ml/min (>60); GFR (African American) 113 ML/MIN (>60); Globulin 2.5 g/dL (1.3-3.2); Glucose 108 mg/dl (74-100); Potassium 4.2 mmoL/L (3.5-5.1); Sodium 138 mmol/L (136-145); Total Protein,Serum 7.2 g/dl (6.3-8.2)
[2024-10-12 14:26] LABS: Iron 28 ug/dL (37-170)
[2024-10-12 14:35] LABS: Total Iron Binding Capacity 468 ug/dL (265-497)
[2024-10-12 15:03] LABS: Ferritin 5.63 ng/ml (6.24-137)
== END 2024-10-12 23:59 | disposition home or self-care (01) ==
LOC: LAB 13:07
PROVIDERS: PCP Physician Assistant; Visit Provider Nurse Practitioner Family
DX: Z86.39 Personal history of other endocrine, nutritional and metabolic disease (principal); K76.0 Fatty (change of) liver, not elsewhere classified
CPT/HCPCS: 36415; 80053; 82728; 83540; 83550; 85025

== ENCOUNTER 2024-11-05 13:58 | Outpatient (POV) | payer OTHER, SELFPAY ==
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
--- OUTSIDE RECORDS SUMMARY | 2024-11-05 14:02 | XMS_ITS | Clinical Summary ---
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 6 tablet 2 Active buprenorphine-nalo xone (SUBOXONE) 2-0.[address] under the tongue daily This medication has the potential to cause dental problems. After the medication has completely dissolved in your mouth, gently rinse your teeth and gums with water and then swallow, and also wait at least 1 ho. Active buPROPion (WELLBUTRIN) 100 MG tablet Take 1 tablet (100 mg total) by mouth in the morning and 1 tablet (100 mg total) before bedtime. Active ondansetron (ZOFRAN-ODT) 8 MG disintegrating tablet Take 1 tablet (8 mg total) by mouth 2 (two) times daily as needed for Nausea. Active gabapentin (NEURONTIN) 600 MG tablet Take 2 tablets (1,200 mg total) by mouth in the morning. Max Daily Amount: 1,200 mg. Active Active Problems No known active problems Social History Tobacco Use Types Packs/Day Years Used Date Smoking Tobacco: Every Day Cigarettes Smokeless Tobacco: Current Tobacco Cessation:Ready to Q uit: No; Counseling Given: No Alcohol Use Standard Drinks/Week Comments Never 0 (1 standard drink = 0.6 oz pur e alcohol) Interpersonal Safety Answer Date Record ed Family or friends hurt you Not on file 06/06 Family or friends insult you Not on file Family or friends threaten you Not on file 0 06/06/2023 Family or friends scream or curse at you Not on file 06/06/2023 Housing Stability Answer Date Recorded Living situation today Not on file Living situation problems Not on file 2023 Family and Community Support Answer Jose Alberto e Recorded Help with Day to Day Activities Not on file 06/06/2023 Feeling Lonely or Isolated Not on file 06/06 Educational Attainment Answer Date Brayan rded Speak language other than Croatian at home Not on file 06/06/2023 Want help with school or training Not on file 06/06/2023 Depression Answer Date Recorded PHQ-2 Risk Not on file 06/06/2023 Disabilities Answer Date Recorded Difficulty concentrating Not on file 024 Difficulty doing errands alone Not on file 0 06/06/2023 Substance Use Answer Date Recorded Used prescription meds for non-medical reasons N ot on file 06/06/2023 Used illegal drugs past 12 months Not on file 06/06/2023 Comments No Sex and Gender Information Value Date Recorded Sex Assigned at Not on file Legal Sex Female 4:39 PM CDT Gender Identity Not on file Sexual Orientation Not on file Last Filed Vital Signs Vital Sign Reading Time Taken Comments Blood Pressure 118/61 10/10/2022 11:40 PM EDT Pulse 68 10/10/2022 11:40 PM EDT Temperature 36.9 C (98.4 F) 10/10/2022 11:40 PM EDT Respiratory Rate 18 10/10/2022 11:40 PM EDT Oxygen Saturation 95% 10/10/2022 11:08 PM EDT Inhaled Oxygen Concentration - - Weight 61.7 kg (136 lb) 10/10/2022 11:40 PM EDT Height 160 cm (5' 3 ) 10/10/2022 11:40 PM EDT Body Mass Index 24.09 10/10/2022 11:40 PM EDT Plan of Treatment Health Maintenance Due Date Last Done Comments Depression Screening (12+) 1997 HIV Screening 2000 Hepatitis C Screening 2003 DTAP/TDAP/TD VACCINES (1 - Tdap) 2004 Pneumococcal Vaccine: 0-49 Years (1 of 2 - PCV) 2004 Lipid Panel 2005 Pap Smear 2006 Tobacco Cessation Counseling and Screening (12+) 04/2104/21/2022 COVID-19 VACCINE (1 - 2023- season) 2024 Influenza Vaccine (Season Ended) 2025 Insurance [employer] [facility]
--- OUTSIDE RECORDS SUMMARY | 2024-11-05 14:02 | XMS_ITS | Referral Summary ---
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
[2024-11-05 14:14] VITALS: BP 107/52; PULSE 79; RESP 14; O2SAT 98; BMI 23.8
--- NOTE | 2024-11-05 15:29 | EXP.PAIN.SOA ---
[facility] Disclaimer: The information contained in this section may have been updated after the patient was seen, as this information can be updated by other users. Medical History Thyromegaly GERD (gastroesophageal reflux disease) Change in bowel movement Abdominal pain Dysphagia History of COVID-19 History of gastroesophageal reflux (GERD) Allergies History of anemia Hyperthyroidism Thyroid nodule History of thyroid nodule tubal ligation planned Rh negative status during Tobacco smoking affecting History of ectopic Drug abuse Anxiety Migraine Neuropathy Lumbar radicular pain Tobacco use Surgical History Hx of colonoscopy Status post bilateral salpingectomy Status post delivery H/O tubal ligation History of section Family History Other Alcoholism Asthma Cancer Heart attack Hyperlipidemia Hypertension Scoliosis Substance abuse Social History Smoking Status: Current every day smoker tobacco type: cigarettes packs per day: 1 smoking status start date: Currently vapes, not using cigarettes alcohol intake: never substance use type: former substance user current occupational status: other Travel in the last 8 weeks?: None number of children: 7 caffeine: Yes PM Subjective & Objective Subjective Subjective:: Patient is a pleasant 39-year-old female who presents today for worsening low back and hip pain. Patient rates her pain today a 7 out of 10. Patient denies any new falls or injuries from our last visit. Patient was seen back in May and was originally scheduled for bilateral SI injections. Today she states that she was really scared about the idea of an injection and decided to cancel it. Patient does state however the pain is gotten much worse and would like to get back on the schedule for the injections. Patient states the pain is worse with prolonged sitting or laying. She states it is constant and is interfering with her ability to perform activities of daily living such as cooking and cleaning. Patient has continued at home stretching exercise along with oral medication, heat and ice and topicals with no changes. Patient was seen with physical therapy however did not notice specific changes with that. Patient has also tried chiropractor therapy. Her Aditya has been reviewed and is appropriate. Review of Systems: General: No recent weight changes, no fever, no sleep disturbances Respiratory: No cough, no shortness of air, no recurring pulmonary infections Cardiovascular/peripheral vascular: No chest pain, no palpitations, no edema, no shortness of breath Gastrointestinal: No new onset incontinence, normal bowel movements reported Genitourinary: No new onset incontinence Musculoskeletal: Low back pain, bilateral hip pain Psychiatric: [Normal mood/affect] Neurological: [Denies weakness in extremities], [denies balance issues] Pain at rest (0-10 scale): 7 Objective Objective:: Physical Exam: General: Alert and oriented x3, no acute distress, pleasant and cooperative Lungs: Respirations even and unlabored, symmetrical chest expansion Eyes: PERRL Musculoskeletal: Flexion and extension of lumbar [spine] somewhat guarded secondary to pain, [antalgic gait noted] point tenderness along bilateral SIs with positive bilateral Fernando's, Brennon's, Gaenslen's, compression and distraction exam Neurological: Speech clear, no gross sensory deficit Has patient had previous pain injection?: No Conservative treatment options previously tried: Home exercise plan Length of treatment: Longer than 12-week, Physical Therapy Length of treatment: Minimal improved and Chiropractor Length of treatment: Minimal improvement Meds Home Medications and Allergies Home Medications ?Medication ?Instructions ?Recorded ?Confirmed ?Type buprenorphine 8 mg-naloxone 2 mg 1 film sublingual BID 09/10/22 11/05/24 History sublingual film (Suboxone) ondansetron 4 mg disintegrating 4 mg PO Q8H PRN Nausea #12 tabs 09/15/23 11/05/24 Rx tablet sumatriptan succinate 100 mg 100 mg PO DAILY PRN migraines 12/02/23 11/05/24 History tablet (Imitrex) gabapentin 600 mg tablet 600 mg PO Q8H #90 tabs 02/04/24 11/05/24 Rx famotidine 40 mg tablet See Rx Instructions .Route 09/01/24 11/05/24 Rx .COMPLEX #30 tabs omeprazole 40 mg capsule,delayed See Rx Instructions .Route 09/21/24 11/05/24 Rx release .COMPLEX #30 caps linaclotide 72 mcg capsule 72 mcg PO DAILY #90 caps 10/05/24 11/05/24 Rx (Linzess) ferrous sulfate 325 mg (65 mg 325 mg PO DAILY #30 tabs 10/12/24 11/05/24 Rx iron) tablet New Prescriptions to Start Prescriptions: Allergies Allergy/AdvReac Type Severity Reaction Status Date / Time naproxen (NAPROXEN) Allergy Mild I-ITCHING Verified 10/05/24 13:22 tramadol (From Ultram) Allergy Unknown Verified 10/05/24 13:22 allergy reaction Assessment and Plan *Assessment and plan (1) Bilateral sacroiliitis: Status: Acute Category: Medical Code(s): M46.1 - Sacroiliitis, not elsewhere classified Plan Patient is experiencing worsening pain along the low back and bilateral hips. They did have limited range of motion of the lumbar spine along with point tenderness along bilateral SI joints and a positive bilateral Fernando's, Brennon's, Gaenslen's, compression and distraction exam. I did discuss with the patient that I do believe they would benefit from bilateral SI injections. Risk and benefits were discussed with the patient and they would like to proceed forward with this option. Patient has tried and failed conservative therapy. Patient has been actively doing conservative treatment including oral medication, heat and ice, topicals, physical therapy and chiropractor therapy as well as continued at home exercising and stretching for longer than 12 weeks that was physician guided. Patient is having to adjust their activity based off the increased pain resulting in activity modification. I do believe the patient would benefit from SI injection. If the patient does get significant relief following these injections we will see in the future if they would benefit from a second set with the possibility of SI fusion at a later date. This will be a diagnostic injection with less than 1 mL solution to be injected. Patient will be scheduled for bilateral SI injections under fluoroscopy. I will also order the patient a compounded cream. Patient has been instructed to contact the clinic with any concerns before the next appointment. Dr. Koehler has reviewed this note and agrees with this plan of care. This note was dictated using voice recognition software and make contain errors or omissions. All injections are used with Lidocaine or Bupivacaine and dexamethasone unless diagnostic in which no steroids were injected.
== END 2024-11-05 23:59 | disposition home or self-care (01) ==
LOC: SC.PAIN 14:00
PROVIDERS: Visit Provider Nurse Practitioner Family
DX: M46.1 Sacroiliitis, not elsewhere classified (principal)
CPT/HCPCS: 99212; G0463

== ENCOUNTER 2024-11-23 14:26 | Day surgery (SDC) | payer OTHER, SELFPAY ==
[2024-11-23 14:52] VITALS: BP 105/45; PULSE 87; RESP 18; O2SAT 95; BMI 24.5
[2024-11-23 15:06] VITALS: BP 114/55; PULSE 63; RESP 18; O2SAT 96
[2024-11-23] MEDS: BUPIVACAINE 0.25% 10ML INJ 25 MG IJ (15:06)
[2024-11-23] MEDS: LIDOCAINE 1% 5ML PF VIAL 5 ML (15:06)
[2024-11-23 15:08] VITALS: BP 114/55; PULSE 63; RESP 18; O2SAT 96
--- NOTE | 2024-11-23 15:13 | P.PCN_ITS ---
Procedure Date: 11/23/24 Time: 15:00 Anesthesiologist:: Frandy Meza CRNA Complications:: None Pre-procedure Diagnosis:: Bilateral sacroiliitis Post-procedure Diagnosis:: Same Indications for Procedure:: Patient is a very pleasant 39-year-old female who comes our clinic today for diagnostic bilateral sacroiliac joint injection of local anesthetic. Patient describes low lumbar back pain off the midline bilaterally. Bilateral posterior hip pain. Difficulty with transitioning from sitting to standing. Difficulty with ambulation. She rates her pain 7/10. Procedure Details:: Procedure: Diagnostic bilateral sacroiliac joint injections under fluoroscopy Informed consent was obtained and the risks and benefits of the procedure were explained to the patient.~ The patient was taken to the procedure room and noninvasive monitors were placed including a noninvasive blood pressure cuff and pulse oximeter.~ The patient was placed prone on the procedure table. Both posterior hips were cleansed using chlorhexidine as a cleansing solution. C-arm fluoroscopy was used to view the right sacroiliac joint.~ The skin and subcutaneous tissues were anesthetized using lidocaine 1.5% and a 25-gauge needle.~ After this, a 22-gauge spinal needle was inserted under fluoroscopic guidance into the inferior aspect of the right sacroiliac joint.~ Omnipaque dye was injected and good spread was seen throughout the joint.~ After this, approximately 3 mL of bupivacaine, 0.25% and 3 mL of 1% lidocaine was incrementally injected into the right sacroiliac joint. We then moved to the left sacroiliac joint.~ The skin and subcutaneous tissues were anesthetized using lidocaine 1.5% and a 25-gauge needle.~ After this, a 22- gauge spinal needle was inserted under fluoroscopic guidance into the inferior aspect of the left sacroiliac joint.~ Omnipaque dye was injected and good spread was seen throughout the joint. After this, approximately 3 mL of bupivacaine, 3 mL of 1% lidocaine was injected into the left sacroiliac joint..~ The patient tolerated the procedure well with no complications. Plan and Disposition:: Patient was discharged without incident.
[2024-11-23 15:31] VITALS: BP 104/57; PULSE 72; RESP 18; O2SAT 96
== END 2024-11-23 15:31 | disposition home or self-care (01) ==
PROVIDERS: PCP Physician Assistant; Visit Provider Nurse Anesthetist, Certified Registered
DX: M46.1 Sacroiliitis, not elsewhere classified (principal); M25.552 Pain in left hip; M25.551 Pain in right hip; K21.9 Gastro-esophageal reflux disease without esophagitis; F17.290 Nicotine dependence, other tobacco product, uncomplicated; Z88.5 Allergy status to narcotic agent; Z88.6 Allergy status to analgesic agent; Z79.899 Other long term (current) drug therapy
CPT/HCPCS: G0260; J0665; J2003

== ENCOUNTER 2024-12-06 14:04 | Outpatient (POV) | payer OTHER, SELFPAY ==
--- OUTSIDE RECORDS SUMMARY | 2024-11-16 21:41 | XMS_ITS | Encounter Summary ---
Author Organization [facility] yste Address [address] [place] [address] Care Team Providers Care Leather Scraper Name Role Phone Halley Mtz Primary Care Provider [phone] Reason for Visit * Reason Comments Addiction Problem Encounter Details Date Type Department Care Team (Late st Contact Info) Description 11/16/2024 9:41 PM EDT - 11/16/2024 11:10 PM EDT Emergency [facility] EMERGENCY DEPARTMENT [address] [place] [id number] Zhen Samuel MD [address] [place] [address] Brain fog (Primary Dx); Polysubstance abuse; Anxiety; Panic attacks Discharge Disposition: Home or Self Care Social History Tobacco Use Types Packs/Day Years Used Date Smoking Tobacco: Every Day Cigarettes 1 22.6 Started: 2002 Smokeless Tobacco: Never Alcohol Use Standard Drinks/Week Comments Never 0 (1 standard drink = 0.6 oz pur e alcohol) Abuse Screen Answer Date Recorded Feels Unsafe at Home or Work/School no 11/16/2024 Feels Threatened by Someone no 05/2024 Does Anyone Try to Keep You From Having Contact with Others or Doing Things Outside Your Home? no 11/16/2024 Physical Signs of Abuse Present no 11/16/2024 Comments No Sex and Gender Information Value Date Recorded Sex Assigned at Not on file Legal Sex Female 11:46 AM EDT Gender Identity Not on file Sexual Orientation Not on file documented as of this encounter Last Filed Vital Signs Vital Sign Reading Time Taken Comments Blood Pressure 124/72 11/16/2024 11:00 PM EDT Pulse 67 11/16/2024 11:00 PM EDT Temperature 36.9 C (98.5 F) 11/16/2024 8:58 PM EDT Respiratory Rate 18 11/16/2024 10:00 PM EDT Oxygen Saturation 95% 11/16/2024 11:00 PM EDT Inhaled Oxygen Concentration - - Weight 59 kg (130 lb) 11/16/2024 8:58 PM EDT Height 157.5 cm (5' 2 ) 11/16/2024 8:58 PM EDT Body Mass Index 23.78 11/16/2024 8:58 PM EDT documented in this encounter Functional Status * Calculated C-SSRS Risk Score (Lifetime/Recent) Answer Date of Assessment Author No Risk Indicated 11/16/2024 8:57 PM EDT Lay Hightower RN * [place] Suicide Severity Rating Scale (Screener/Recent Self-Report) Question Answer Date of Assessment Author 1. Wish to be (Past 1 Month) No 025 8:57 PM EDT Beni Hightower RN 2. Non-Specific Active Suici yesy Thoughts (Past 1 Month) No 11/16/2024 8:57 PM EDT Beni Hightower RN 6. Suicidal Behavior (Lifetime) No 8:57 PM EDT Beni Hightower RN documented as of this encounter Discharge Instructions * Discharge Instructions* Zhen Samuel MD - 11/16/2024 10:47 PM EDT I believe that your use of substances including methamphetamines, THC, and Suboxone are likely contributing factors to a lot of your symptoms. You certainly could have other underlying medical illness which are contributing factors. Medical tests in the emergency room were normal today except for mildly low potassium and you are given extra potassium while you are in the emergency room. I recommend that you try and decrease or stop using marijuana and methamphetamines and wean from your Suboxone as you are able. I recommend close follow-up with your primary care doctor. Return to the ER as needed for new or worsening symptoms. Please call our substance abuse counselors if you would like assistance with your drug use * Attachments The following attachments cannot be sent through Care Everywhere. * Managing Anxiety Adult ([place]) * Finding Treatment for Addiction ([place]) documented in this encounter Medications at Time of Discharge albuterol sulfate HFA 108 (90 Base) MCG/ACT inhaler Inhale 2 puffs Every 4 (Four) Hours As Needed for Wheezing. budesonide-formotero l (SYMBICORT) 160-4.5 MCG/ACT inhaler Inhale 2 puffs 2 (Two) Times a Day. buprenorphine (SUBUTEX) 8 MG sublingual tablet SL tablet 08/21/2022 buprenorphine-naloxo ne (SUBOXONE) 8-2 MG per SL tablet Place 1 tablet under the tongue 2 (Two) Times a Day. buPROPion (WELLBUTRIN) 100 MG tablet Take 1 tablet by mouth. gabapentin (NEURONTIN) 600 MG tablet Take 1 tablet by mouth Daily. loratadine (CLARITIN) 10 MG tablet 10/31/2022 omeprazole (priLOSEC) 20 MG capsule Take 1 capsule by mouth Daily. ondansetron ODT (ZOFRAN-ODT) [address] 1 tablet on the tongue Every 8 (Eight) Hours As Needed for Nausea or Vomiting. Vit-Fe Fumarate-FA (GNP ) 28-0.8 MG tablet 10/31/2022 documented as of this encounter ED Notes * Zhen Samuel MD - 11/16/2024 9:05 PM EDT Images from the original note were not included. [facility] DEPARTMENT ENCOUNTER Pt Name: Scarlett Osman Birthdate: 1985 Date of evaluation: 11/16/2024 Provider: Zhen Samuel MD CHIEF COMPLAINT Chief Complaint Patient presents with Addiction Problem HISTORY OF PRESENT ILLNESS Scarlett Osman is a 39 y.o. female who presents to the emergency department for evaluation of multiple complaints. Patient states that she just has not been acting like herself lately, has been having a lot of brain fog, difficulty concentrating, having increase in baseline anxiety and also an increase in frequency of her panic attacks. Her most recent panic attack was on Friday. Patient states she is also worried about infections in her bilateral feet. This is where she usually injects methamphetamines that she is using. She states she has been using meth for many years but has been using it more frequently over the past several weeks. REVIEW OF SYSTEMS ROS: A chief complaint appropriate review of systems was completed and is negative except as noted in the HPI. PAST MEDICAL HISTORY Past Medical History: Diagnosis Date History of transfusion 2014 hemorrhage History of transfusion 2016 hemorrhage SURGICAL HISTORY Past Surgical History: Procedure Laterality Date SECTION CURRENT MEDICATIONS No current facility-administered medications for this encounter. Current Outpatient Medications: albuterol sulfate HFA 108 (90 Base) MCG/ACT inhaler, Inhale 2 puffs Every 4 (Four) Hours As Needed for Wheezing. (Patient not taking: Reported on 11/29/2022), Disp: , Rfl: budesonide-formoterol (SYMBICORT) 160-4.5 MCG/ACT inhaler, Inhale 2 puffs 2 (Two) Times a Day. (Patient not taking: Reported on 11/29/2022), Disp: , Rfl: buprenorphine (SUBUTEX) 8 MG sublingual tablet SL tablet, , Disp: , Rfl: buprenorphine-naloxone (SUBOXONE) 8-2 MG per SL tablet, Place 1 tablet under the tongue 2 (Two) Times a Day., Disp: , Rfl: buPROPion (WELLBUTRIN) 100 MG tablet, Take 1 tablet by mouth., Disp: , Rfl: gabapentin (NEURONTIN) 600 MG tablet, Take 1 tablet by mouth Daily., Disp: , Rfl: loratadine (CLARITIN) 10 MG tablet, , Disp: , Rfl: omeprazole (priLOSEC) 20 MG capsule, Take 1 capsule by mouth Daily., Disp: , Rfl: ondansetron ODT (ZOFRAN-ODT) 4 MG disintegrating tablet, Place 1 tablet on the tongue Every 8 (Eight) Hours As Needed for Nausea or Vomiting., Disp: , Rfl: Vit-Fe Fumarate-FA (GNP ) 28-0.8 MG tablet, , Disp: , Rfl: ALLERGIES Patient has no known allergies. FAMILY HISTORY No family history on file. SOCIAL HISTORY Social History Socioeconomic History Marital status: Legally Tobacco Use Smoking status: Every Day Current packs/day: 1.00 Average packs/day: 1 pack/day for 22.5 years (22.5 ttl pk-yrs) Types: Cigarettes Start date: 2002 Smokeless tobacco: Never Vaping Use Vaping status: Former Substances: Nicotine, THC, CBD, Flavoring Devices: Disposable Substance and Sexual Activity Alcohol use: Never Drug use: Not Currently Types: Other, Oxycodone Comment: now on suboxone x 7 years Sexual activity: Yes Partners: Male PHYSICAL EXAM (up to 7 for level 4, 8 or more for level 5) Vitals: 11/16/24 2147 11/16/24 2200 11/16/24 2230 11/16/24 2300 BP: 118/75 119/72 124/72 BP Location: Patient Position: Pulse: 82 63 60 67 Resp: 18 Temp: TempSrc: SpO2: 95% 92% 95% Weight: Height: Physical Exam Constitutional: General: She is not in acute distress. HENT: Head: Normocephalic and atraumatic. Eyes: Conjunctiva/sclera: Conjunctivae normal. Pupils: Pupils are equal, round, and reactive to light. Cardiovascular: Rate and Rhythm: Normal rate and regular rhythm. Pulses: Normal pulses. Heart sounds: No murmur heard. No gallop. Pulmonary: Effort: Pulmonary effort is normal. No respiratory distress. Breath sounds: No wheezing or rales. Abdominal: General: Abdomen is flat. There is no distension. Tenderness: There is no abdominal tenderness. Musculoskeletal: General: No swelling or deformity. Normal range of motion. Right lower leg: No edema. Left lower leg: No edema. Comments: There are couple of punctate puncture wounds on the dorsal feet bilaterally. There is no erythema, induration, fluctuance, there is no tenderness at the sites. The extremities are warm dry and well-perfused. There are normal dorsal pedal pulses bilaterally. Skin: General: Skin is warm and dry. Capillary Refill: Capillary refill takes less than 2 seconds. Neurological: General: No focal deficit present. Mental Status: She is alert and oriented to person, place, and time. Psychiatric: Attention and Perception: Attention normal. Mood and Affect: Affect is flat. Speech: Speech is delayed. Behavior: Behavior is cooperative. DIAGNOSTIC RESULTS EKG: All EKGs are interpreted by the Emergency Department Physician who either signs or Co-signs this chart in the absence of a lance crewmember. ECG 12 Lead Altered Mental Status Final Result Test Reason : Altered Mental Status Blood Pressure : */* mmHG Vent. Rate : 62 BPM Atrial Rate : 62 BPM P-R Int : 196 ms QRS Dur : 78 ms QT Int : 410 ms P-R-T Axes : 26 77 32 degrees QTcB Int : 416 ms Normal sinus rhythm with sinus arrhythmia Nonspecific T wave abnormality Abnormal ECG No previous ECGs available Confirmed by MD SAMUEL KYLE ([id number]) on 11/16/2024 10:09:40 PM Referred By: ed md Confirmed By: ZHEN SAMUEL MD Telemetry Scan Final Result RADIOLOGY: [x] Radiologist's Report Reviewed: XR Chest 1 View Final Result Impression: No radiographic evidence of acute cardiopulmonary abnormality. Electronically Signed: Silvestre Crawley MD 11/16/2024 9:43 PM EDT Workstation ID: [id number] I ordered and independently reviewed the above noted radiographic studies. LABS: I independently interpreted all laboratory studies conducted during this ED visit. The results of these studies can be seen below and my independent interpretation in the ED course EMERGENCY DEPARTMENT COURSE and DIFFERENTIAL DIAGNOSIS/MDM: Vitals: OF 03:31 EDT BP - 124/72 HR - 67 TEMP - 98.5 ??F (36.9 ??C) (Oral) O2 SATS - 95% Discussion below represents my analysis of pertinent findings related to patient's condition, differential diagnosis, treatment plan and final disposition. Differential diagnosis: The differential diagnosis associated with the patient's presentation includes: I believe patient'ssymptoms are most likely explained by her methamphetamine abuse, certainly these would be good explanations for increased anxiety, panic attacks, and brain fog. Will evaluate for alternative pathologies including infectious or metabolic derangements. Puncture wounds on patient's feet do not have any signs of infection. Independent interpretations (ECG/rhythm strip/X-ray/US/CT scan): See ED course Additional sources: Discussed/obtained information from independent historians: [] Spouse: [] Parent: [] Friend: [] EMS: [] Other: External record review: 04/02/2023 reviewed most recent outpatient provider note seen in urology for follow-up after a cystotomy during Patient's care impacted by: [] Diabetes [] Hypertension [] Coronary Artery Disease [] Cancer [x] Other: Substance abuse Care significantly affected by Social Determinants of Health (housing and economic circumstances, unemployment) [] Yes [x] No If yes, Patient's care significantly limited by Social Determinants of Health including: [] Inadequate housing [] Low income [] Alcoholism and drug addiction in family [] Problems related to primary support group [] Unemployment [] Problems related to employment [] Other Social Determinants of Health: I considered prescription management with: [] Pain medication: [] Antiviral: [] Antibiotic: [] Other: Additional orders considered but not ordered: The following testing was considered but ultimately not selected: ED Course: ED Course as of 11/17/24 0331 e Nov 16, [id number] Chest radiograph independently interpreted by myself demonstrates no acute cardiopulmonary abnormalities. [KB] 2208 Twelve-lead ECG independently interpreted by myself demonstrates normal sinus rhythm, no ST segment elevation or depression. Normal axis [KB] 2241 Workup independently interpreted by myself demonstrates mild hypokalemia, no other substantialabnormalities except for urine drug screen which is positive for THC and buprenorphine [KB] ED Course User Index [KB] Zhen Samuel MD Diagnostic studies were conducted. Patient's diagnostic workup is reassuring at this time and she maintains normal vital signs in the ER. We discussed that it is likely her polysubstance use is a contributing factor to her symptoms. No other causes identified in the emergency room though it is certainly possible there is some other underlying medical process contributing to symptoms and patient will follow-up with her primary caredoctor. She was given information for follow-up with our substance abuse counselors. Regarding patient's specific concerns of infection in her feet there is no findings on her physicalexam or diagnostic workup to indicate this. Prior to discharge from the emergency department I discussed with the patient and any family members present the current diagnosis, treatment plan, recommendations regarding follow-up with a primary care doctor or specialist, general emergency room return precautions as well as return precautions specific to their diagnosis and treatment. The patient/family indicated understanding of these instructions. Time was allotted to answer questions at that time and throughout the ED course. PROCEDURES: Procedures CRITICAL CARE TIME CONSULTS FINAL IMPRESSION 1. Brain fog 2. Polysubstance abuse 3. Anxiety 4. Panic attacks DISPOSITION/PLAN ED Disposition ED Disposition Discharge Condition Stable Comment -- Comment: Please note this report has been produced using speech recognition software. Zhen Samuel MD Attending Emergency Physician Recent Results (from the past 24 hours) Comprehensive Metabolic Panel Collection Time: 11/16/24 9:12 PM Specimen: Blood Result Value Ref Range Glucose 110 (H) 65 - 99 mg/dL BUN 5.1 (L) 6.0 - 20.0 mg/dL Creatinine 0.67 0.57 - 1.00 mg/dL Sodium 138 136 - 145 mmol/L Potassium 3.3 (L) 3.5 - 5.2 mmol/L Chloride 103 98 - 107 mmol/L CO2 22.5 22.0 - 29.0 mmol/L Calcium 9.7 8.6 - 10.5 mg/dL Total Protein 7.4 6.0 - 8.5 g/dL Albumin 4.7 3.5 - 5.2 g/dL ALT (SGPT) 17 1 - 33 U/L AST (SGOT) 30 1 - 32 U/L Alkaline Phosphatase 54 39 - 117 U/L Total Bilirubin 0.4 0.0 - 1.2 mg/dL Globulin 2.7 gm/dL A/G Ratio 1.7 g/dL BUN/Creatinine Ratio 7.6 7.0 - 25.0 Anion Gap 12.5 5.0 - 15.0 mmol/L eGFR 114.2 >60.0 mL/min/1.73 High Sensitivity Troponin T Collection Time: 11/16/24 9:12 PM Specimen: Blood Result Value Ref Range HS Troponin T <6 <14 ng/L Magnesium Collection Time: 11/16/24 9:12 PM Specimen: Blood Result Value Ref Range Magnesium 2.3 1.6 - 2.6 mg/dL Green Top (Gel) Collection Time: 11/16/24 9:12 PM Result Value Ref Range Extra Tube Hold for add-ons. Lavender Top Collection Time: 11/16/24 9:12 PM Result Value Ref Range Extra Tube hold for add-on Gold Top - SST Collection Time: 11/16/24 9:12 PM Result Value Ref Range Extra Tube Hold for add-ons. Hanson Top Collection Time: 11/16/24 9:12 PM Result Value Ref Range Extra Tube Hold for add-ons. Light Blue Top Collection Time: 11/16/24 9:12 PM Result Value Ref Range Extra Tube Hold for add-ons. CBC Auto Differential Collection Time: 11/16/24 9:12 PM Specimen: Blood Result Value Ref Range WBC 6.94 3.40 - 10.80 10*3/mm3 RBC 4.76 3.77 - 5.28 10*6/mm3 Hemoglobin 12.8 12.0 - 15.9 g/dL Hematocrit 41.3 34.0 - 46.6 % MCV 86.8 79.0 - 97.0 fL MCH 26.9 26.6 - 33.0 pg MCHC 31.0 (L) 31.5 - 35.7 g/dL RDW 24.6 (H) 12.3 - 15.4 % RDW-SD 74.6 (H) 37.0 - 54.0 fl MPV 8.8 6.0 - 12.0 fL Platelets 208 140 - 450 10*3/mm3 Neutrophil % 74.5 42.7 - 76.0 % Lymphocyte % 17.1 (L) 19.6 - 45.3 % Monocyte % 7.8 5.0 - 12.0 % Eosinophil % 0.4 0.3 - 6.2 % Basophil % 0.1 0.0 - 1.5 % Immature Grans % 0.1 0.0 - 0.5 % Neutrophils, Absolute 5.16 1.70 - 7.00 10*3/mm3 Lymphocytes, Absolute 1.19 0.70 - 3.10 10*3/mm3 Monocytes, Absolute 0.54 0.10 - 0.90 10*3/mm3 Eosinophils, Absolute 0.03 0.00 - 0.40 10*3/mm3 Basophils, Absolute 0.01 0.00 - 0.20 10*3/mm3 Immature Grans, Absolute 0.01 0.00 - 0.05 10*3/mm3 nRBC 0.0 0.0 - 0.2 /100 WBC Scan Slide Collection Time: 11/16/24 9:12 PM Specimen: Blood Result Value Ref Range Anisocytosis Slight/1+ None Seen Hypochromia Slight/1+ None Seen Toxic Granulation Slight/1+ None Seen Platelet Morphology Normal Normal Urinalysis With Microscopic If Indicated (No Culture) - Urine, Clean Catch Collection Time: 11/16/24 9:21 PM Specimen: Urine, Clean Catch Result Value Ref Range Color, UA Dark Yellow (A) Yellow, Straw Appearance, UA Clear Clear pH, UA 6.5 5.0 - 8.0 Specific [place], UA 1.026 1.001 - 1.030 Glucose, UA Negative Negative Ketones, UA 15 mg/dL (1+) (A) Negative Bilirubin, UA Small (1+) (A) Negative Blood, UA Trace (A) Negative Protein, UA 30 mg/dL (1+) (A) Negative Leuk Esterase, UA Trace (A) Negative Nitrite, UA Negative Negative Urobilinogen, UA 4.0 E.U./dL (A) 0.2 - 1.0 E.U./dL Urine Drug Screen - Urine, Clean Catch Collection Time: 11/16/24 9:21 PM Specimen: Urine, Clean Catch Result Value Ref Range THC, Screen, Urine Positive (A) Negative Phencyclidine (PCP), Urine Negative Negative Cocaine Screen, Urine Negative Negative Methamphetamine, Ur Negative Negative Opiate Screen Negative Negative Amphetamine Screen, Urine Negative Negative Benzodiazepine Screen, Urine Negative Negative Tricyclic Antidepressants Screen Negative Negative Methadone Screen, Urine Negative Negative Barbiturates Screen, Urine Negative Negative Oxycodone Screen, Urine Negative Negative Buprenorphine, Screen, Urine Positive (A) Negative Fentanyl, Urine - Urine, Clean Catch Collection Time: 11/16/24 9:21 PM Specimen: Urine, Clean Catch Result Value Ref Range Fentanyl, Urine Negative Negative Urinalysis, Microscopic Only - Urine, Clean Catch Collection Time: 11/16/24 9:21 PM Specimen: Urine, Clean Catch Result Value Ref Range RBC, UA 6-10 (A) None Seen, 0-2 /HPF WBC, UA 0-2 None Seen, 0-2 /HPF Bacteria, UA None Seen None Seen, Trace /HPF Squamous Epithelial Cells, UA 7-12 (A) None Seen, 0-2 /HPF Hyaline Casts, UA 0-6 0 - 6 /LPF Calcium Oxalate Crystals, UA Small/1+ None Seen /HPF Mucus, UA Moderate/2+ (A) None Seen, Trace /HPF Methodology Manual Light Microscopy ECG 12 Lead Altered Mental Status Collection Time: 11/16/24 10:07 PM Result Value Ref Range QT Interval 410 ms QTC Interval 416 ms High Sensitivity Troponin T 1Hr Collection Time: 11/16/24 10:11 PM Specimen: Blood Result Value Ref Range HS Troponin T <6 <14 ng/L Troponin T Numeric Delta Note: In addition to lab results from this visit, the labs listed above may include labs taken at another facility or during a different encounter within the last 24 hours. Please correlate lab timeswith ED admission and discharge times for further clarification of the services performed during this visit. Zhen Samuel MD 11/17/24 0331 documented in this encounter Plan of Treatment Not on file documented as of this encounter Procedures Procedure Name Priority Date/Time Associated Diagnosis Comments HIGH SENSITIVITIY TROPONIN T 1HR STAT 11/16/2024 10:11 PM EDT ECG 12-LEAD STAT 11/16/2024 10:07 PM EDT SCANNED - TELEMETRY 11/16/2024 9 :47 PM EDT XR CHEST 1 VW STAT 11/16/2024 9:35 PM EDT URINALYSIS, MICROSCOPIC ONLY STAT 11/16/2024 9:21 PM EDT URINALYSIS W/ MICROSCOPIC IF INDICATED (NO CULTURE) STAT 11/16/2024 9:21 PM EDT URINE DRUG SCREEN STAT 11/16/2024 9:2 1 PM EDT FENTANYL, URINE STAT 11/16/2024 9:21 PM EDT HANSON TOP STAT 11/16/2024 9:12 PM EDT GOLD TOP - SST STAT 11/16/2024 9:12 PM EDT DK GREEN TOP STAT 11/16/2024 9:12 PM EDT SCAN SLIDE STAT 11/16/2024 9:12 PM EDT CBC WITH AUTO DIFFERENTIAL STAT 11/16/2024 9:12 PM EDT LAVENDER TOP STAT 11/16/2024 9:12 PM EDT LIGHT BLUE TOP STAT 11/16/2024 9:12 PM EDT RAINBOW DRAW STAT 11/16/2024 9:12 PM EDT TROPONIN STAT 11/16/2024 9:12 PM EDT CBC AND DIFFERENTIAL STAT 11/16/2024 9:12 PM EDT MAGNESIUM STAT 11/16/2024 9:12 PM EDT COMPREHENSIVE METABOLIC PANEL STAT 11/16/2024 9:12 PM EDT documented in this encounter Results * High Sensitivity Troponin T 1Hr (11/16/2024 10:11 PM EDT) [facility] HS Troponin T <6 <14 ng/L 11/16/2024 10:37 PM EDT [facility] Troponin T Numeric Delta 11/16/2024 10:37 PM EDT [facility] Comment:Unable to calculate. Blood Venipuncture / Unknown 11/16/2024 10:11 PM EDT 11/16/2024 10:18 PM EDT Narrative [facility] - 11/16/2024 10:37 PM EDT High Sensitive Troponin T Reference Range: <14.0 ng/L- Negative Female for AMI <22.0 ng/L- Negative Male for AMI >=14 - Abnormal Female indicating possible myocardial injury. >=22 - Abnormal Male indicating possible myocardial injury. Clinicians would have to utilize clinical acumen, EKG, Troponin, and serial changes to determine if it is an Acute Myocardial Infarction or myocardial injury due to an underlying chronic condition. us Zhen Samuel MD LAB BLOOD ORDERABLES Final Resul t [facility]
[address] [place] [address], * ECG 12 Lead Altered Mental Status (11/16/2024 10:07 PM EDT) [facility] QT Interval 410 ms ECG QTC Interval 416 ms ECG 11/16/2024 10:0 7 PM EDT 11/16/2024 10:09 PM EDT Narrative ECG - 11/16/2024 10:09 PM EDT Test Reason : Altered Mental Status Blood Pressure : */* mmHG Vent. Rate : 62 BPM Atrial Rate : 62 BPM P-R Int : 196 ms QRS Dur : 78 ms QT Int : 410 ms P-R-T Axes : 26 77 32 degrees QTcB Int : 416 ms Normal sinus rhythm with sinus arrhythmia Nonspecific T wave abnormality Abnormal ECG No previous ECGs available Confirmed by MD SAMUEL KYLE ([id number]) on 11/16/2024 10:09:40 PM Referred By: ed Confirmed By: ZHEN SAMUEL MD Procedure Note Zhen Samuel MD - 11/16/2024 Test Reason : Altered Mental Status Blood Pressure : */* mmHG Vent. Rate : 62 BPM Atrial Rate : 62 BPM P-R Int : 196 ms QRS Dur : 78 ms QT Int : 410 ms P-R-T Axes : 26 77 32 degrees QTcB Int : 416 ms Normal sinus rhythm with sinus arrhythmia Nonspecific T wave abnormality Abnormal ECG No previous ECGs available Confirmed by MD SAMUEL KYLE ([id number]) on 11/16/2024 10:09:40 PM Referred By: ed Confirmed By: ZHEN SAMUEL MD Zhen Samuel MD ECG ORDERABLES Final Result ECG * Telemetry Scan (11/16/2024 9:47 PM EDT) [facility] ECG ORDERABLES Final Result * XR Chest 1 View (11/16/2024 9:35 PM EDT) Anatomical Region Laterality Modality Body N/A Radiographic Bhavna ging 11/16/2024 9:43 PM EDT Impressions 11/16/2024 9:43 PM EDT Impression: No radiographic evidence of acute cardiopulmonary abnormality. Electronically Signed: Silvestre Crawley MD 11/16/2024 9:43 PM EDT Workstation ID: [id number] Narrative 11/16/2024 9:43 PM EDT XR CHEST 1 VW Date of Exam: 11/16/2024 9:13 PM EDT Indication: Weak/Dizzy/AMS triage protocol Comparison: None available. Findings: Mediastinum: Cardiac silhouette appears normal Lungs: The lungs appear clear without focal consolidation appreciated. Pleura: No pleural effusion or pneumothorax. Bones and soft tissues: No acute, displaced fracture seen. Procedure Note Silvestre Crawley MD - 11/16/2024 XR CHEST 1 VW Date of Exam: 11/16/2024 9:13 PM EDT Indication: Weak/Dizzy/AMS triage protocol Comparison: None available. Findings: Mediastinum: Cardiac silhouette appears normal Lungs: The lungs appear clear without focal consolidation appreciated. Pleura: No pleural effusion or pneumothorax. Bones and soft tissues: No acute, displaced fracture seen. IMPRESSION: Impression: No radiographic evidence of acute cardiopulmonary abnormality. Electronically Signed: Silvestre Crawley MD 11/16/2024 9:43 PM EDT Workstation ID: [id number] Zhen Samuel MD IMG DIAGNOSTIC IMAGING ORDERABLE S Final Result * (ABNORMAL) Urinalysis, Microscopic Only - Urine, Clean Catch (11/16/2024 9:21 PM EDT) RBC, UA 6-10(A) None Seen, 0-2 /HPF 11/16/2024 10:14 PM EDT [facility] WBC, UA 0-2 None Seen, 0-2 /HPF 11/16/2024 10:14 PM EDT [facility] Bacteria, UA None Seen None Seen, Trace /HPF 11/16/2024 10:14 PM EDT [facility] Squamous Epithelial Cells, UA 7-12(A) None Seen, 0-2 /HPF 11/16/2024 10:14 PM EDT [facility] Hyaline Casts, UA 0-6 0 - 6 /LPF 11/16/2024 10:14 PM EDT [facility] Calcium Oxalate Crystals, UA Small/1+ None Seen /HPF 11/16/2024 10:14 PM EDT [facility] Mucus, UA Moderate/2+(A) None Seen, Trace /HPF 11/16/2024 10:14 PM EDT [facility] Methodology Manual Light Microscopy 11/16/2024 10:14 PM EDT [facility] Urine Urine specimen obtained by clean catch procedure / Unknown Collection / Unknown 11/16/2024 9:21 PM EDT 11/16/2024 9:43 PM EDT Zhen Samuel MD URINE ORDERABLES Final Result Performing Organization Address [facility] Co de Phone Number [facility]
[address] [place] [address], * Fentanyl, Urine - Urine, Clean Catch (11/16/2024 9:21 PM EDT) Fentanyl, Urine Negative Negative 11/16/2024 10:37 PM EDT [facility] Urine Urine specimen obtained by clean catch procedure / Unknown Collection / Unknown 11/16/2024 9:21 PM EDT 11/16/2024 9:43 PM EDT Narrative [facility] - 11/16/2024 10:37 PM EDT Negative Threshold: Fentanyl 5 ng/mL The normal value for the drug tested is negative. This report includes final unconfirmed screening results to be used for medical treatment purposes only. Unconfirmed results must not be used for non-medical purposes such as employment or legal testing. Clinical consideration should be applied to any drug of abuse test, particularly when unconfirmed results are used. us Zhen Samuel MD URINE ORDERABLES Final Result Performing Organization Address City/[facility]/ZIP Co de Phone Number [facility]
[address] [place] [address], * (ABNORMAL) Urine Drug Screen - Urine, Clean Catch (11/16/2024 9:21 PM EDT) [facility] THC, Screen, Urine Positive(A) Negative [facility]16 [facility] Phencyclidine (PCP), Urine Negative Negative 11/16/2024 10:01 PM EDT [facility] Cocaine Screen, Urine Negative Negative 11/16/2024 10:01 PM EDT [facility] Methamphetamine, Ur Negative Negative 11/16/2024 10:01 PM EDT [facility] Opiate Screen Negative Negative 11/16/2024 10:01 PM EDT [facility] Amphetamine Screen, Urine Negative Negative 11/16/2024 10:01 PM [facility] Benzodiazepine Screen, Urine Negative Negative 11/16/2024 10:01 PM T [facility] Tricyclic Antidepressants Screen Negative Negative 11/16/2024 10:01 PM EDT [facility] Methadone Screen, Urine Negative Negative 11/16/2024 10:01 PM EDT [facility] Barbiturates Screen, Urine Negative Negative 11/16/2024 10:01 PM T [facility] Oxycodone Screen, Urine Negative Negative 11/16/2024 10:01 PM [facility] Buprenorphine, Screen, Urine Positive(A) Negative 11/16/2024 10:01 PM [facility] Urine Urine specimen obtained by clean catch procedure / Unknown Collection / Unknown 11/16/2024 9:21 PM EDT 11/16/2024 9:43 PM EDT [facility] - 11/16/2024 10:01 PM EDT Cutoff For Drugs Screened: Amphetamines 500 ng/ml Barbiturates 200 ng/ml Benzodiazepines 150 ng/ml Cocaine 150 ng/ml Methadone 200 ng/ml Opiates 100 ng/ml Phencyclidine 25 ng/ml THC 50 ng/ml Methamphetamine 500 ng/ml Tricyclic Antidepressants 300 ng/ml Oxycodone 100 ng/ml Buprenorphine 10 ng/ml The normal value for all drugs tested is negative. This report includes unconfirmed screening results, with the cutoff values listed, to be used for medical treatment purposes only. Unconfirmed results must not be used for non-medical purposes such as employment or legal testing. Clinical consideration should be applied to any drug of abuse test, particularly when unconfirmed results are used. Zhen Samuel MD URINE ORDERABLES Final Result [facility]
[address] [place] [address], * (ABNORMAL) Urinalysis With Microscopic If Indicated (No Culture) - Urine, Clean Catch (11/16/2024 9:21 PM EDT) Color, UA Dark Yellow(A) Yellow, Straw 11/16/2024 9:51 PM EDT [facility] Appearance, UA Clear Clear 11/16/2024 9:51 PM EDT [facility] pH, UA 6.5 5.0 - 8.0 11/16/2024 9:51 PM EDT [facility] Specific [place], UA 1.026 1.001 - 1.030 11/16/2024 9:51 PM EDT [facility] Glucose, UA Negative Negative 11/16/2024 9:51 PM EDT [facility] Ketones, UA 15 mg/dL (1+)(A) Negative 11/16/2024 9:51 PM EDT [facility] Bilirubin, UA Small (1+)(A) Negative 11/16/2024 9:51 PM EDT [facility] Blood, UA Trace(A) Negative 11/16/2024 9:51 PM EDT [facility] Protein, UA 30 mg/dL (1+)(A) Negative 11/16/2024 9:51 PM EDT [facility] Leuk Esterase, UA Trace(A) Negative 11/16/2024 9:51 PM EDT [facility] Nitrite, UA Negative Negative 11/16/2024 9:51 PM EDT [facility] Urobilinogen, UA 4.0 E.U./dL(A) 0.2 - 1.0 E.U./dL 11/16/2024 9:51 PM EDT [facility] Urine Urine specimen obtained by clean catch procedure / Unknown Collection / Unknown 11/16/2024 9:21 PM EDT 11/16/2024 9:43 PM EDT Zhen Samuel MD URINE ORDERABLES Final Result [facility]
[address] [place] [address], * Scan Slide (11/16/2024 9:12 PM EDT) Anisocytosis Slight/1+ None Seen 11/16/2024 10:53 PM EDT [facility] Hypochromia Slight/1+ None Seen 11/16/2024 10:53 PM EDT [facility] Toxic Granulation Slight/1+ None Seen 11/16/2024 10:53 PM EDT [facility] Platelet Morphology Normal Normal 11/16/2024 10:53 PM EDT [facility] Blood Venipuncture / Unknown 11/16/2024 9:12 PM EDT 11/16/2024 9:20 PM EDT Zhen Samuel MD LAB BLOOD ORDERABLES Final Resul t [facility]
[address] [place] [address], * (ABNORMAL) CBC Auto Differential (11/16/2024 9:12 PM EDT) WBC 6.94 3.40 - 10.80 10*3/mm3 11/16/2024 10:53 PM EDT [facility] RBC 4.76 3.77 - 5.28 10*6/mm3 11/16/2024 10:53 PM EDT [facility] Hemoglobin 12.8 12.0 - 15.9 g/dL 11/16/2024 10:53 PM EDT [facility] Hematocrit 41.3 34.0 - 46.6 % 11/16/2024 10:53 PM EDT [facility] MCV 86.8 79.0 - 97.0 fL 11/16/2024 10:53 PM EDT [facility] MCH 26.9 26.6 - 33.0 pg 11/16/2024 10:53 [facility] MCHC 31.0(L) 31.5 - 35.7 g/dL 11/16/2024 10:53 [facility] RDW 24.6(H) 12.3 - 15.4 % 11/16/2024 10:53 [facility] RDW-SD 74.6(H) 37.0 - 54.0 fl 11/16/2024 10:53 [facility] MPV 8.8 6.0 - 12.0 fL 11/16/2024 10:53 [facility] Platelets 208 140 - 450 10*3/mm3 11/16/2024 10:53 PM EDT [facility] Neutrophil % 74.5 42.7 - 76.0 % 11/16/2024 10:53 PM EDT [facility] Lymphocyte % 17.1(L) 19.6 - 45.3 % 11/16/2024 10:53 PM EDT [facility] Monocyte % 7.8 5.0 - 12.0 % 11/16/2024 10:53 PM EDT [facility] Eosinophil % 0.4 0.3 - 6.2 % 11/16/2024 10:53 PM EDT [facility] Basophil % 0.1 0.0 - 1.5 % 11/16/2024 10:53 PM EDT [facility] Immature Grans % 0.1 0.0 - 0.5 % 11/16/2024 10:53 PM EDT [facility] Neutrophils, Absolute 5.16 1.70 - 7.00 10*3/mm3 11/16/2024 10:53 PM EDT [facility] Lymphocytes, Absolute 1.19 0.70 - 3.10 10*3/mm3 11/16/2024 10:53 PM EDT [facility] Monocytes, Absolute 0.54 0.10 - 0.90 10*3/mm3 11/16/2024 10:53 PM EDT [facility] Eosinophils, Absolute 0.03 0.00 - 0.40 10*3/mm3 11/16/2024 10:53 PM EDT [facility] Basophils, Absolute 0.01 0.00 - 0.20 10*3/mm3 11/16/2024 10:53 PM EDT [facility] Immature Grans, Absolute 0.01 0.00 - 0.05 10*3/mm3 11/16/2024 10:53 PM EDT [facility] nRBC 0.0 0.0 - 0.2 /100 WBC 11/16/2024 10:53 PM EDT [facility] Blood Venipuncture / Unknown 11/16/2024 9:12 PM EDT 11/16/2024 9:20 PM EDT Narrative [facility] - 11/16/2024 10:53 PM EDT Appended report. These results have been appended to a previously verified report. us Zhen Samuel MD LAB BLOOD ORDERABLES Final Resul t [facility]
[address] [place] [address], * Light Blue Top (11/16/2024 9:12 PM EDT) Extra Tube Hold for add-ons. 11/16/2024 9:31 PM EDT [facility] Comment:Auto resulted Blood Venipuncture / Unknown 11/16/2024 9:12 PM EDT 11/16/2024 9:20 PM EDT Zhen Samuel MD LAB BLOOD ORDER ONLY Final Resul t Performing Organization Address [facility] Co de Phone Number [facility]
[address] [place] [address], * Hanson Top (11/16/2024 9:12 PM EDT) Extra Tube Hold for add-ons. 11/16/2024 9:31 PM EDT [facility] Comment:Auto resulted. Blood Venipuncture / Unknown 11/16/2024 9:12 PM EDT 11/16/2024 9:20 PM EDT Zhen Samuel MD LAB BLOOD ORDER ONLY Final Resul t Performing Organization Address [facility] Co de Phone Number [facility]
[address] [place] [address], [place] [phone] * Gold Top - SST (11/16/2024 9:12 PM EDT) Extra Tube Hold for add-ons. 11/16/2024 9:31 PM EDT [facility] Comment:Auto resulted. Blood Venipuncture / Unknown 11/16/2024 9:12 PM EDT 11/16/2024 9:20 PM EDT Zhen Samuel MD LAB BLOOD ORDER ONLY Final Resul t Performing Organization Address [facility] Co de Phone Number [facility]
[address] [place] [address], [place] [phone] * Lavender Top (11/16/2024 9:12 PM EDT) Extra Tube hold for add-on 11/16/2024 9:31 PM EDT [facility] Comment:Auto resulted Blood Venipuncture / Unknown 11/16/2024 9:12 PM EDT 11/16/2024 9:20 PM EDT Zhen Samuel MD LAB BLOOD ORDER ONLY Final Resul t Performing Organization Address City/[facility]/ZIP Co de Phone Number [facility]
[address] [place] [address], * Green Top (Gel) (11/16/2024 9:12 PM EDT) Extra Tube Hold for add-ons. 11/16/2024 9:31 PM EDT [facility] Comment:Auto resulted. Blood Venipuncture / Unknown 11/16/2024 9:12 PM EDT 11/16/2024 9:19 PM EDT Zhen Samuel MD LAB BLOOD ORDER ONLY Final Resul t Performing Organization Address [facility] Co de Phone Number [facility]
[address] [place] [address], * Magnesium (11/16/2024 9:12 PM EDT) Magnesium 2.3 1.6 - 2.6 mg/dL 11/16/2024 9:48 PM EDT [facility] Blood Venipuncture / Unknown 11/16/2024 9:12 PM EDT 11/16/2024 9:19 PM EDT Zhen Samuel MD LAB BLOOD ORDERABLES Final Resul t Performing Organization Address [facility] Co de Phone Number [facility]
[address] [place] [address], [place] [phone] * High Sensitivity Troponin T (11/16/2024 9:12 PM EDT) [facility] Troponin T <6 <14 ng/L 11/16/2024 9:48 PM EDT [facility] Blood Venipuncture / Unknown 11/16/2024 9:12 PM EDT 11/16/2024 9:19 PM EDT Narrative [facility] - 11/16/2024 9:48 PM EDT High Sensitive Troponin T Reference Range: <14.0 ng/L- Negative Female for AMI <22.0 ng/L- Negative Male for AMI >=14 - Abnormal Female indicating possible myocardial injury. >=22 - Abnormal Male indicating possible myocardial injury. Clinicians would have to utilize clinical acumen, EKG, Troponin, and serial changes to determine if it is an Acute Myocardial Infarction or myocardial injury due to an underlying chronic condition. Zhen Samuel MD LAB BLOOD ORDERABLES Final Resul t [facility]
[address] [place] [address], * (ABNORMAL) Comprehensive Metabolic Panel (11/16/2024 9:12 PM EDT) [facility] Glucose 110(H) 65 - 99 mg/dL 11/16/2024 9:48 PM EDT [facility] BUN 5.1(L) 6.0 - 20.0 mg/dL 11/16/2024 9:48 PM EDT [facility] Creatinine 0.67 0.57 - 1.00 mg/dL 11/16/2024 9:48 PM EDT [facility] Sodium 138 136 - 145 mmol/L 11/16/2024 9:48 PM EDT [facility] Potassium 3.3(L) 3.5 - 5.2 mmol/L 11/16/2024 9:48 PM EDT [facility] Chloride 103 98 - 107 mmol/L 11/16/2024 9:48 PM EDT [facility] CO2 22.5 22.0 - 29.0 mmol/L 11/16/2024 9:48 PM EDT [facility] Calcium 9.7 8.6 - 10.5 mg/dL 11/16/2024 9:48 PM EDT [facility] Total Protein 7.4 6.0 - 8.5 g/dL 11/16/2024 9:48 PM EDT [facility] Albumin 4.7 3.5 - 5.2 g/dL 11/16/2024 9:48 PM EDT [facility] ALT (SGPT) 17 1 - 33 U/L 11/16/2024 9:48 PM EDT [facility] AST (SGOT) 30 1 - 32 U/L 11/16/2024 9:48 PM EDT [facility] Alkaline Phosphatase 54 39 - 117 U/L 11/16/2024 9:48 PM EDT [facility] Total Bilirubin 0.4 0.0 - 1.2 mg/dL 11/16/2024 9:48 PM EDT [facility] Globulin 2.7 gm/dL 11/16/2024 9:48 PM EDT [facility] Comment:Calculated Result A/G Ratio 1.7 g/dL 11/16/2024 9:48 PM T [facility] BUN/Creatinine Ratio 7.6 7.0 - 25.0 11/16/2024 9:48 PM EDT [facility] Anion Gap 12.5 5.0 - 15.0 mmol/L 11/16/2024 9:48 PM T [facility] eGFR 114.2 >60.0 mL/min/1.7 3 11/16/2024 9:48 PM T [facility] Blood Venipuncture / Unknown 11/16/2024 9:12 PM EDT 11/16/2024 9:19 PM EDT [facility] - 11/16/2024 9:48 PM EDT GFR Categories in Chronic Kidney Disease (CKD) GFR Category GFR (mL/min/1.73) Interpretation G1 90 or greater Normal or high (1) G2 60-89 Mild decrease (1) G3a 45-59 Mild to moderate decrease G3b 30-44 Moderate to severe decrease G4 15-29 Severe decrease G5 14 or less Kidney failure (1)In the absence of evidence of kidney disease, neither GFR category G1 or G2 fulfill the criteria for CKD. eGFR calculation 2020 CKD-EPI creatinine equation, which does not include race as a factor us Zhen Samuel MD LAB BLOOD ORDERABLES Final Resul t [facility]
[address] [place] [address], documented in this encounter Visit Diagnoses Diagnosis Brain fog- Primary Polysubstance abuse Other, mixed, or unspecified nondependent drug abuse, unspecified Anxiety Anxiety state, unspecified Panic attacks Panic disorder without agoraphobia documented in this encounter Administered Medications Inactive Administered Medications - up to 3 most recent administrations Medication Order MAR Action Action Date Dose Rate Site potassium chloride (MICRO-K/KLOR-CON) CR capsule 40 mEq, Oral, Once, On Fri11/16/24 at 2252, For 1 dose, Do not crush or chew the capsules or tablets. The drug may not work as designed if the capsule or tablet is crushed or chewed. Swallow whole. Take with food. Given 11/16/2024 11:06 PM EDT 40 mEq sodium chloride 0.9 % flush 10 mL 10 mL, Intravenous, As Needed, Line Care, Starting on Fri11/16/24 at 2057 documented in this encounter Active and Recently Administered Medications Times are shown in EDT. Scheduled Medication Order 11/14/2024 11/15/2024 11/16/2024 potassium chloride (MICRO-K/KLOR-CON) CR capsule (COMPLETED) 40 mEq, Oral, Once, On Fri11/16/24 at 2252, For 1 dose, Do not crush or chew the capsules or tablets. The drug may not work as designed if the capsule or tablet is crushed or chewed. Swallow whole. Take with food. 2306 (Given - Provid er: Arcelia Hernandez RN) PRN Medication Order 11/14/2024 11/15/2024 11/16/2024 sodium chloride 0.9 % flush 10 mL 10 mL, Intravenous, As Needed, Line Care, Starting on Fri11/16/24 at 2058 documented in this encounter Care Teams Leather Scraper Relationship Specialty Start Date End Date Halley Mtz PA [address] [place], [place] [id number] PCP - General Physician Switchboard Troubleshooter 11/16/24 documented as of this encounter
--- OUTSIDE RECORDS SUMMARY | 2024-12-06 14:09 | XMS_ITS | Referral Summary ---
Author Organization [facility] ([place], [place], [place], [place]) Address [address] [place] [address] Care Team Providers Care Gimp Tacker Name Role Phone Unavailable Primary Care Provider [...] drink = 0.6 oz pur e alcohol) Family and Community Support Answer Jose Alberto e Recorded Help with Day to Day Activities Not on file 06/06/2023 Feeling Lonely or Isolated Not on file 06/06 Educational Attainment Answer Date Brayan rded Speak language other than Portuguese at home Not on file 06/06/2023 Want help with school or training Not on file 06/06/2023 Substance Use Answer Date Recorded Used [...] of Treatment Not on file Insurance [employer] [facility]
--- OUTSIDE RECORDS SUMMARY | 2024-12-06 14:09 | XMS_ITS | Clinical Summary ---
Author Organization [facility] Address [address] [place] [phone] Phone Care Team Providers Care Notcher Name Role Phone Unavailable Primary Care Provider Unavailabl e Social History Tobacco Use Types Packs/Day Years Used Date Smoking Tobacco: Never Assessed Comments Unknown Sex and Gender Information Value Date Recorded Sex Assigned at Not on file Legal Sex Female 11:47 AM EDT Gender Identity Not on file Sexual Orientation Not on file Plan of Treatment Upcoming Encounters Date Type Department Care Team (Late st Contact Info) Description 01/03/2025 10:30 AM EDT Office Visit [facility] [address] [phone] Genet Almanzar MD [address] [place] [phone] Health Maintenance Due Date Last Done Comments Annual Wellness Exam 1988 DTaP/TDaP/Td (1 - Tdap) 2004 Hepatitis B Vaccine (1 of 3 - 19+ 3-dose series) 2004 Cervical Cancer Screening 2006 Pap Smear 2006 HPV/Pap Cotest 2015 COVID-19 Vaccine ( - 2023-2 5 season) 2024 Influenza Vaccine (#1) 2025 Meningococcal B Vaccine Aged Out No l onger eligible based on patient's age to complete this topic Pneumococcal Vaccine 0-49 Aged Out No longer eligible based on patient's age to complete this topic Insurance [employer] [place]
--- OUTSIDE RECORDS SUMMARY | 2024-12-06 14:09 | XMS_ITS | Clinical Summary ---
Author Organization [facility] Address [address] [place] [address] Care Team Providers Care Manager School Name Role Phone Halley Mtz Primary Care Provider [phone] Allergies No known active allergies Medications albuterol sulfate HFA 108 (90 Base) MCG/ACT inhaler Inhale 2 puffs Every 4 (Four) Hours As Needed for Wheezing. Active budesonide-formoter ol (SYMBICORT) 160-4.5 MCG/ACT inhaler Inhale 2 puffs 2 (Two) Times a Day. Active buprenorphine-nalox one (SUBOXONE) 8-2 [address] SL tablet Place 1 tablet under the tongue 2 (Two) Times a Day. Active gabapentin (NEURONTIN) 600 MG tablet Take 1 tablet by mouth Daily. Active omeprazole (priLOSEC) 20 MG capsule Take 1 capsule by mouth Daily. Active ondansetron ODT (ZOFRAN-ODT) [address] 1 tablet on the tongue Every 8 (Eight) Hours As Needed for Nausea or Vomiting. Active buprenorphine (SUBUTEX) 8 MG sublingual tablet SL tablet 3 Active buPROPion (WELLBUTRIN) 100 MG tablet Take 1 tablet by mouth. Active loratadine (CLARITIN) 10 MG tablet 3 Active Vit-Fe Fumarate-FA (GNP ) 28-0.8 MG tablet 3 Active Active Problems Problem Noted Date Diagnosed Date Opioid dependence on mainten ance agonist therapy, no symptoms 12/31/2022 History of hemorrhage, currently preg nant 12/02/2022 History of substance abuse 12/02/2022 Antepartum multigravida of advanced maternal age 0510/09/2022 History of delivery affecting 10/09/2022 Chronic hepatitis C complicating , ante 10/09/2022 Encounters Date Type Department Care Team Description 11/16/2024 9:41 PM EDT - 11/16/2024 11:10 PM EDT Emergency [facility] [address] [place] [address] Zhen Samuel MD Brain fog (Primary Dx); Polysubstance abuse; Anxiety; Panic attacks Discharge Disposition: Home or Self Care 11/16/2024 Travel from Last 3 Months Social History Tobacco Use Types Packs/Day Years Used Date Smoking Tobacco: Every Day Cigarettes 1 22.6 Started: 2002 Smokeless Tobacco: Never Tobacco Cessation:Ready to Q uit: Not Asked; Counseling Given: Not Answered Alcohol Use Standard Drinks/Week Comments Never 0 (1 standard drink = 0.6 oz pur e alcohol) Abuse Screen Answer Date Recorded Feels Unsafe at Home or Work/School no 11/16/2024 Feels Threatened by Someone no 070 05/2024 Does Anyone Try to Keep You [...] Mass Index 23.78 11/16/2024 8:58 PM EDT Plan of Treatment Health Maintenance Due Date Last Done Comments Annual Gynecologic Pelvic an d Breast Exam 1985 Hepatitis B (1 of 3 - 19+ 3- dose series) 2004 Pneumococcal Vaccine 0-49 (1 of 2 - PCV) 2004 TDAP/TD VACCINES (1 - Tdap) 2004 ANNUAL PHYSICAL 05/08/2021 COVID-19 Vaccine (1 - 2023-2 5 season) 2024 INFLUENZA VACCINE 02/16/2025 HEPATITIS C SCREENING Completed 02/07/2023 , 02/07/2023, 12/31/2022, Additional history exists Procedures Procedure Name Priority Date/Time Associated Diagnosis Comments HIGH SENSITIVITIY TROPONIN T 1HR STAT 11/16/2024 10:11 PM EDT ECG 12-LEAD STAT 11/16/2024 10:07 PM EDT SCANNED - TELEMETRY 11/16/2024 9 :47 PM EDT XR CHEST 1 VW STAT 11/16/2024 9:35 PM EDT URINALYSIS, MICROSCOPIC ONLY STAT 11/16/2024 9:21 PM EDT FENTANYL, URINE STAT 11/16/2024 9:21 PM EDT URINE DRUG SCREEN STAT 11/16/2024 9:2 1 PM EDT URINALYSIS W/ MICROSCOPIC IF INDICATED (NO CULTURE) STAT 11/16/2024 9:21 PM EDT LIGHT BLUE TOP STAT 11/16/2024 9:12 PM EDT HANSON TOP STAT 11/16/2024 9:12 PM EDT GOLD TOP - SST STAT 11/16/2024 9:12 PM EDT LAVENDER TOP STAT 11/16/2024 9:12 PM EDT DK GREEN TOP STAT 11/16/2024 9:12 PM EDT CBC AND DIFFERENTIAL STAT 11/16/2024 9:12 PM EDT SCAN SLIDE STAT 11/16/2024 9:12 PM EDT CBC WITH AUTO DIFFERENTIAL STAT 11/16/2024 9:12 PM EDT MAGNESIUM STAT 11/16/2024 9:12 PM EDT TROPONIN STAT 11/16/2024 9:12 PM EDT COMPREHENSIVE METABOLIC PANEL STAT 11/16/2024 9:12 PM EDT RAINBOW DRAW STAT 11/16/2024 9:12 PM EDT from Last 3 Months Results * High Sensitivity Troponin T 1Hr (11/16/2024 10:11 PM EDT) HS Troponin T <6 <14 ng/L 11/16/2024 10:37 PM EDT [facility] Troponin T Numeric Delta 11/16/2024 10:37 PM EDT [facility] Comment:Unable to calculate. Blood Venipuncture / Unknown 11/16/2024 10:11 PM EDT 11/16/2024 10:18 PM EDT Narrative [facility] - 11/16/2024 10:37 PM EDT High [...] MD LAB BLOOD ORDERABLES Final Resul t [facility]
[address] [place] [address], * ECG 12 Lead Altered Mental Status (11/16/2024 10:07 PM EDT) QT Interval 410 ms ECG QTC Interval [...] * Telemetry Scan (11/16/2024 9:47 PM EDT) us [facility] ECG ORDERABLES Final Result * XR Chest 1 View (11/16/2024 9:35 PM EDT) Anatomical Region Laterality Modality Body N/A Radiographic Bhavna ging 11/16/2024 9:43 PM EDT Impressions 11/16/2024 9:43 PM EDT Impression: No radiographic evidence of acute cardiopulmonary abnormality. Electronically Signed: Silvestre Crawley MD 11/16/2024 9:43 PM EDT Workstation ID: [id number] Narrative 11/16/2024 9:43 PM EDT XR CHEST [...] MD 11/16/2024 9:43 PM EDT Workstation ID: [id number] Zhen Samuel MD IMG DIAGNOSTIC IMAGING ORDERABLE S Final Result * (ABNORMAL) Urinalysis, Microscopic Only - Urine, Clean Catch (11/16/2024 9:21 PM EDT) RBC, UA 6-10(A) None Seen, 0-2 /HPF 11/16/2024 10:14 PM EDT [facility] WBC, UA 0-2 None Seen, 0-2 /HPF 11/16/2024 10:14 PM EDT [facility] Bacteria, UA None Seen None Seen, Trace /HPF 11/16/2024 10:14 PM EDT [facility] Squamous Epithelial Cells, UA 7-12(A) None Seen, 0-2 /HPF 11/16/2024 10:14 PM EDT [facility] Hyaline Casts, UA 0-6 0 - 6 /LPF 11/16/2024 10:14 PM EDT [facility] Calcium Oxalate Crystals, UA Small/1+ None Seen /HPF 11/16/2024 10:14 PM EDT [facility] Mucus, UA Moderate/2+(A) None Seen, Trace /HPF 11/16/2024 10:14 PM EDT [facility] Methodology Manual Light Microscopy 11/16/2024 10:14 PM EDT [facility] Urine Urine specimen obtained by clean catch procedure / Unknown Collection / Unknown 11/16/2024 9:21 PM EDT 11/16/2024 9:43 PM EDT us Zhen Samuel MD URINE ORDERABLES Final Result [facility]
[address] [place] [address], * (ABNORMAL) Urinalysis With Microscopic If Indicated (No Culture) - Urine, Clean Catch (11/16/2024 9:21 PM EDT) Color, UA Dark Yellow(A) Yellow, Straw 11/16/2024 9:51 PM EDT [facility] Appearance, UA Clear Clear 11/16/2024 9:51 PM EDT [facility] pH, UA 6.5 5.0 - 8.0 11/16/2024 9:51 PM EDT [facility] Specific [place], UA 1.026 1.001 - 1.030 11/16/2024 9:51 PM EDT [facility] Glucose, UA Negative Negative 11/16/2024 9:51 PM EDT [facility] Ketones, UA 15 mg/dL (1+)(A) Negative 11/16/2024 9:51 PM EDT [facility] Bilirubin, UA Small (1+)(A) Negative 11/16/2024 9:51 PM EDT [facility] Blood, UA Trace(A) Negative 11/16/2024 9:51 PM EDT [facility] Protein, UA 30 mg/dL (1+)(A) Negative 11/16/2024 9:51 PM EDT [facility] Leuk Esterase, UA Trace(A) Negative 11/16/2024 9:51 PM EDT [facility] Nitrite, UA Negative Negative 11/16/2024 9:51 PM EDT [facility] Urobilinogen, UA 4.0 E.U./dL(A) 0.2 - 1.0 E.U./dL 11/16/2024 9:51 PM EDT [facility] Urine Urine specimen obtained by clean catch procedure / Unknown Collection / Unknown 11/16/2024 9:21 PM EDT 11/16/2024 9:43 PM EDT Zhen Samuel MD URINE ORDERABLES Final Result [facility]
[address] [place] [address], * (ABNORMAL) Urine Drug Screen - Urine, Clean Catch (11/16/2024 9:21 PM EDT) THC, Screen, Urine Positive(A) Negative 11/16 10:01 PM EDT [facility] Phencyclidine (PCP), Urine Negative Negative 11/16/2024 10:01 PM EDT [facility] Cocaine Screen, Urine Negative Negative 11/16/2024 10:01 PM EDT [facility] Methamphetamine, Ur Negative Negative 11/16/2024 10:01 PM EDT [facility] Opiate Screen Negative Negative 11/16/2024 10:01 PM EDT [facility] Amphetamine Screen, Urine Negative Negative 11/16/2024 10:01 PM EDT [facility] Benzodiazepine Screen, Urine Negative Negative 11/16/2024 10:01 PM EDT [facility] Tricyclic Antidepressants Screen Negative Negative 11/16/2024 10:01 PM EDT [facility] Methadone Screen, Urine Negative Negative 11/16/2024 10:01 PM EDT [facility] Barbiturates Screen, Urine Negative Negative 11/16/2024 10:01 PM EDT [facility] Oxycodone Screen, Urine Negative Negative 11/16/2024 10:01 PM EDT [facility] Buprenorphine, Screen, Urine Positive(A) Negative 11/16/2024 10:01 PM EDT [facility] Urine Urine specimen obtained by clean catch procedure / Unknown Collection / Unknown 11/16/2024 9:21 PM EDT 11/16/2024 9:43 PM EDT [facility] - 11/16/2024 10:01 PM EDT Cutoff [...] Zhen Samuel MD URINE ORDERABLES Final Result [facility]
[address] [place] [address], * Fentanyl, Urine - Urine, Clean Catch (11/16/2024 9:21 PM EDT) Fentanyl, Urine Negative Negative 11/16/2024 10:37 PM EDT [facility] Urine Urine specimen obtained by clean catch procedure / Unknown Collection / Unknown 11/16/2024 9:21 PM EDT 11/16/2024 9:43 PM EDT Narrative [facility] - 11/16/2024 10:37 PM EDT Negative [...] URINE ORDERABLES Final Result Performing Organization Address City/[facility] Co de Phone Number [facility]
[address] [place] [address], * Hanson Top (11/16/2024 9:12 PM EDT) Extra Tube Hold for add-ons. 11/16/2024 9:31 PM EDT [facility] Comment:Auto resulted. Blood Venipuncture / Unknown 11/16/2024 9:12 PM EDT 11/16/2024 9:20 PM EDT us Zhen Samuel MD LAB BLOOD ORDER ONLY Final Resul t Performing Organization Address City/[facility]/ZIP Co de Phone Number [facility]
[address] [place] [address], [place] [phone] * Gold Top - SST (11/16/2024 9:12 PM EDT) Extra Tube Hold for add-ons. 11/16/2024 9:31 PM EDT [facility] Comment:Auto resulted. Blood Venipuncture / Unknown 11/16/2024 9:12 PM EDT 11/16/2024 9:20 PM EDT us Zhne Samuel MD LAB BLOOD ORDER ONLY Final Resul t Performing Organization Address City/[facility]/ZIP Co de Phone Number [facility]
[address] [place] [address], * Green Top (Gel) (11/16/2024 9:12 PM EDT) Extra Tube Hold for add-ons. 11/16/2024 9:31 PM EDT [facility] Comment:Auto resulted. Blood Venipuncture / Unknown 11/16/2024 9:12 PM EDT 11/16/2024 9:19 PM EDT us Zhen Samuel MD LAB BLOOD ORDER ONLY Final Resul t Performing Organization Address [facility] Co de Phone Number [facility]
[address] [place] [address], * Scan Slide (11/16/2024 9:12 PM EDT) Anisocytosis Slight/1+ None Seen 11/16/2024 10:53 PM EDT [facility] Hypochromia Slight/1+ None Seen 11/16/2024 10:53 PM EDT [facility] Toxic Granulation Slight/1+ None Seen 11/16/2024 10:53 PM EDT [facility] Platelet Morphology Normal Normal 11/16/2024 10:53 PM EDT [facility] Blood Venipuncture / Unknown 11/16/2024 9:12 PM EDT 11/16/2024 9:20 PM EDT us Zhen Samuel MD LAB BLOOD ORDERABLES Final Resul t Performing Organization Address City/[facility] Co de Phone Number [facility]
[address] [place] [address], * (ABNORMAL) CBC Auto Differential (11/16/2024 9:12 PM EDT) WBC 6.94 3.40 - 10.80 10*3/mm3 11/16/2024 10:53 PM EDT [facility] RBC 4.76 3.77 - 5.28 10*6/mm3 11/16/2024 10:53 PM EDT [facility] Hemoglobin 12.8 12.0 - 15.9 g/dL 11/16/2024 10:53 PM EDT [facility] Hematocrit 41.3 34.0 - 46.6 % 11/16/2024 10:53 PM EDT [facility] MCV 86.8 79.0 - 97.0 fL 11/16/2024 10:53 PM EDT [facility] MCH 26.9 26.6 - 33.0 pg 11/16/2024 10:53 PM EDT [facility] MCHC 31.0(L) 31.5 - 35.7 g/dL 11/16/2024 10:53 PM EDT [facility] RDW 24.6(H) 12.3 - 15.4 % 11/16/2024 10:53 PM EDT [facility] RDW-SD 74.6(H) 37.0 - 54.0 fl 11/16/2024 10:53 PM EDT [facility] MPV 8.8 6.0 - 12.0 fL 11/16/2024 10:53 PM EDT [facility] Platelets 208 140 - 450 10*3/mm3 11/16/2024 10:53 PM EDT [facility] Neutrophil % 74.5 42.7 - 76.0 % 11/16/2024 10:53 PM EDT [facility] Lymphocyte % 17.1(L) 19.6 - 45.3 % 11/16/2024 10:53 PM EDT [facility] Monocyte % 7.8 5.0 - 12.0 % 11/16/2024 10:53 PM EDT [facility] Eosinophil % 0.4 0.3 - 6.2 % 11/16/2024 10:53 PM EDT [facility] Basophil % 0.1 0.0 - 1.5 % 11/16/2024 10:53 PM EDT [facility] Immature Grans % 0.1 0.0 - 0.5 % 11/16/2024 10:53 PM EDT [facility] Neutrophils, Absolute 5.16 1.70 - 7.00 10*3/mm3 11/16/2024 10:53 PM EDT [facility] Lymphocytes, Absolute 1.19 0.70 - 3.10 10*3/mm3 11/16/2024 10:53 PM EDT [facility] Monocytes, Absolute 0.54 0.10 - 0.90 10*3/mm3 11/16/2024 10:53 PM EDT [facility] Eosinophils, Absolute 0.03 0.00 - 0.40 10*3/mm3 11/16/2024 10:53 PM EDT [facility] Basophils, Absolute 0.01 0.00 - 0.20 10*3/mm3 11/16/2024 10:53 PM EDT [facility] Immature Grans, Absolute 0.01 0.00 - 0.05 10*3/mm3 11/16/2024 10:53 PM EDT [facility] nRBC 0.0 0.0 - 0.2 /100 WBC 11/16/2024 10:53 PM EDT [facility] Blood Venipuncture / Unknown 11/16/2024 9:12 PM EDT 11/16/2024 9:20 PM EDT Narrative [facility] - 11/16/2024 10:53 PM EDT Appended report. These results have been appended to a previously verified report. us Zhen Samuel MD LAB BLOOD ORDERABLES Final Resul t [facility]
[address] [place] [address], * Lavender Top (11/16/2024 9:12 PM EDT) Extra Tube hold for add-on 11/16/2024 9:31 PM EDT [facility] Comment:Auto resulted Blood Venipuncture / Unknown 11/16/2024 9:12 PM EDT 11/16/2024 9:20 PM EDT Zhen Samuel MD LAB BLOOD ORDER ONLY Final Resul t Performing Organization Address City/[facility]/ZIP Co de Phone Number [facility]
[address] [place] [address], * Light Blue Top (11/16/2024 9:12 PM EDT) Extra Tube Hold for add-ons. 11/16/2024 9:31 PM EDT [facility] Comment:Auto resulted Blood Venipuncture / Unknown 11/16/2024 9:12 PM EDT 11/16/2024 9:20 PM EDT us Zhen Saumel MD LAB BLOOD ORDER ONLY Final Resul t [facility]
[address] [place] [address], * High Sensitivity Troponin T (11/16/2024 9:12 PM EDT) HS Troponin T <6 <14 ng/L 11/16/2024 9:48 PM EDT [facility] Blood Venipuncture / Unknown 11/16/2024 9:12 PM EDT 11/16/2024 9:19 PM EDT Narrative [facility] - 11/16/2024 9:48 PM EDT High [...] ORDERABLES Final Resul t Performing Organization Address City/[facility] Co de Phone Number [facility]
[address] [place] [address], * Magnesium (11/16/2024 9:12 PM EDT) [facility] Magnesium 2.3 1.6 - 2.6 mg/dL 11/16/2024 9:48 PM EDT [facility] Blood Venipuncture / Unknown 11/16/2024 9:12 PM EDT 11/16/2024 9:19 PM EDT us Zhen Samuel MD LAB BLOOD ORDERABLES Final Resul t Performing Organization Address [facility] de Phone Number [facility]
[address] [place] [address], * (ABNORMAL) Comprehensive Metabolic Panel (11/16/2024 9:12 PM EDT) Glucose 110(H) 65 - 99 mg/dL 11/16/2024 9:48 PM EDT [facility] BUN 5.1(L) 6.0 - 20.0 mg/dL 11/16/2024 9:48 PM EDT [facility] Creatinine 0.67 0.57 - 1.00 mg/dL 11/16/2024 9:48 PM EDT [facility] Sodium 138 136 - 145 mmol/L 11/16/2024 9:48 PM EDT [facility] Potassium 3.3(L) 3.5 - 5.2 mmol/L 11/16/2024 9:48 PM EDT [facility] Chloride 103 98 - 107 mmol/L 11/16/2024 9:48 PM EDT [facility] CO2 22.5 22.0 - 29.0 mmol/L 11/16/2024 9:48 PM EDT [facility] Calcium 9.7 8.6 - 10.5 mg/dL 11/16/2024 9:48 PM EDT [facility] Total Protein 7.4 6.0 - 8.5 g/dL 11/16/2024 9:48 PM EDT [facility] Albumin 4.7 3.5 - 5.2 g/dL 11/16/2024 9:48 PM T [facility] ALT (SGPT) 17 1 - 33 U/L 11/16/2024 9:48 PM T [facility] AST (SGOT) 30 1 - 32 U/L 11/16/2024 9:48 PM T [facility] Alkaline Phosphatase 54 39 - 117 U/L 11/16/2024 9:48 PM T [facility] Total Bilirubin 0.4 0.0 - 1.2 mg/dL 11/16/2024 9:48 PM T [facility] Globulin 2.7 gm/dL 11/16/2024 9:48 PM T [facility] Comment:Calculated Result A/G Ratio 1.7 g/dL 11/16/2024 9:48 PM T [facility] BUN/Creatinine Ratio 7.6 7.0 - 25.0 11/16/2024 9:48 PM T [facility] Anion Gap 12.5 5.0 - 15.0 mmol/L 11/16/2024 9:48 PM T [facility] eGFR 114.2 >60.0 mL/min/1.7 3 11/16/2024 9:48 PM [facility] Blood Venipuncture / Unknown 11/16/2024 9:12 PM EDT 11/16/2024 9:19 PM EDT Narrative [facility] - 11/16/2024 9:48 PM EDT GFR [...] MD LAB BLOOD ORDERABLES Final Resul t [facility]
[address] [place] [address], from Last 3 Months Insurance [facility] Care Teams Manager School Relationship Specialty Start Date End Date Halley Mtz PA [address] [place] [address] PCP - General Physician Estimator [employer] 11/16/24
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
--- OUTSIDE RECORDS SUMMARY | 2024-12-06 14:09 | XMS_ITS | Clinical Summary ---
Author Organization [employer] ([place], [place], [place], [place]) Address [address] [place] [address] Care Team Providers Care Manager Intern Name Role Phone Unavailable Primary Care Provider [...] Date Brayan rded Speak language other than Sinhala at home Not on file 06/06/2023 Want [...] (1 - 2023- season) 2024 Influenza Vaccine (#1) 2025 Insurance [employer] [place]
--- OUTSIDE RECORDS SUMMARY | 2024-12-06 14:09 | XMS_ITS | Encounter Summary ---
[facility] Address [address] [place] [address] Care Team Providers Care T Rail Turner Name Role Phone Halley Mtz Primary Care Provider [phone] Encounter Details Date Type Department Care Team (Latest Contact Info) Description 11/16/2024 Travel Social History Tobacco Use Types Packs/Day Years [...] on file documented as of this encounter Functional Status * Calculated C-SSRS Risk Score (Lifetime/Recent) Answer Date of Assessment Author No Risk Indicated 11/16/2024 8:57 PM EDT Lay Hightower RN * [place] Suicide Severity Rating Scale (Screener/Recent Self-Report) Question Answer Date of Assessment Author 1. Wish to be (Past 1 Month) No 025 8:57 PM EDT Beni Hightower RN 2. Non-Specific Active Suici yesy Thoughts (Past 1 Month) No 11/16/2024 8:57 PM EDT Beni Hightower RN 6. Suicidal Behavior (Lifetime) No 5 8:57 PM ABRAMT Beni Hightower RN documented as of this encounter Plan of Treatment Not on file documented as of this encounter Visit Diagnoses Not on filedocumented in this encounter Care Teams T Rail Turner Relationship Specialty Start Date End Date Halley Mtz PA [address] [place] [address] PCP - General Physician Core Measures Abstractor 11/16/24 documented as of this encounter
[2024-12-06 15:13] VITALS: BP 103/62; BP 71/54; PULSE 67; RESP 12; O2SAT 4; BMI 23.3
[2024-12-06 15:14] LABS: Hematocrit 39.1 % (37.0-47.0); Hemoglobin 12.1 g/dL (12.2-16.2); Immature Granulocytes % 0 %; Mean Corpuscular HGB Conc 30.9 g/dL (31.8-35.4); Mean Corpuscular Hemoglobin 28.3 pg (27.0-31.2); Mean Corpuscular Volume 91.6 fl (81-99); Nucleated Red Blood Cells % 0 %; Platelet Count 193 K/mm3 (142-424); Red Blood Count 4.27 M/mm3 (4.20-5.40); Red Cell Distribution Width-SD 70.7 fL; White Blood Count 5.9 K/mm3 (4.8-10.8)
--- NOTE | 2024-12-06 15:15 | EXP.PAIN.SOA ---
[facility] Disclaimer: The information contained in this section may have been updated after the patient was seen, as this information can be updated by other users. Medical History Thyromegaly GERD (gastroesophageal reflux disease) Change in bowel movement Abdominal pain Dysphagia History of COVID-19 History of gastroesophageal reflux (GERD) Allergies History of anemia Hyperthyroidism Thyroid nodule History of thyroid nodule tubal ligation planned Rh negative status during Tobacco smoking affecting History of ectopic Drug abuse Anxiety Migraine Neuropathy Lumbar radicular pain Tobacco use Surgical History Hx of colonoscopy Status post bilateral salpingectomy Status post delivery H/O tubal ligation History of section Family History Other Alcoholism Asthma Cancer Heart attack Hyperlipidemia Hypertension Scoliosis Substance abuse Social History Smoking Status: Current every day smoker tobacco type: cigarettes packs per day: 1 smoking status start date: Currently vapes, not using cigarettes alcohol intake: never substance use type: former substance user current occupational status: other Travel in the last 8 weeks?: None number of children: 7 caffeine: Yes PM Subjective & Objective Subjective Subjective:: Patient is a pleasant 39-year-old female who presents today for follow-up of her bilateral SI injections on 11/23/2024. Today she rates her pain a 4 out of 10. Patient does state the day of this injection she had 85% improvement. She does state that it did wear off and then really start to kick in after that and is still writing about 70% relief. Patient did try the compounded cream however had a reaction where she just could not sleep and it seemed to make her more confused and has since discontinued this medication. Patient does feel like that the pain is much more manageable compared to what it was previously. She denies any other changes. Her Aditya has been reviewed and is appropriate. Review of Systems: General: No recent weight changes, no fever, no sleep disturbances Respiratory: No cough, no shortness of air, no recurring pulmonary infections Cardiovascular/peripheral vascular: No chest pain, no palpitations, no edema, no shortness of breath Gastrointestinal: No new onset incontinence, normal bowel movements reported Genitourinary: No new onset incontinence Musculoskeletal: Low back pain Psychiatric: [Normal mood/affect] Neurological: [Denies weakness in extremities], [denies balance issues] Pain at rest (0-10 scale): 4 Objective Objective:: Physical Exam: General: Alert and oriented x3, no acute distress, pleasant and cooperative Lungs: Respirations even and unlabored, symmetrical chest expansion Eyes: PERRL Musculoskeletal: Flexion and extension of lumbar [spine] somewhat guarded secondary to pain, [antalgic gait noted] Neurological: Speech clear, no gross sensory deficit Has patient had previous pain injection?: Yes Percent improvement in pain since last injection: 85% Conservative treatment options previously tried: Home exercise plan Length of treatment: Longer than 12 weeks Meds Home Medications and Allergies Home Medications ?Medication ?Instructions ?Recorded ?Confirmed ?Type buprenorphine 8 mg-naloxone 2 mg 1 film sublingual BID 09/10/22 12/06/24 History sublingual film (Suboxone) ondansetron 4 mg disintegrating 4 mg PO Q8H PRN Nausea #12 tabs 09/15/23 12/06/24 Rx tablet sumatriptan succinate 100 mg 100 mg PO DAILY PRN migraines 12/02/23 12/06/24 History tablet (Imitrex) gabapentin 600 mg tablet 600 mg PO Q8H #90 tabs 02/04/24 12/06/24 Rx famotidine 40 mg tablet See Rx Instructions .Route 09/01/24 12/06/24 Rx .COMPLEX #30 tabs omeprazole 40 mg capsule,delayed See Rx Instructions .Route 09/21/24 12/06/24 Rx release .COMPLEX #30 caps linaclotide 72 mcg capsule 72 mcg PO DAILY #90 caps 10/05/24 12/06/24 Rx (Linzess) ferrous sulfate 325 mg (65 mg 325 mg PO DAILY #30 tabs 10/12/24 12/06/24 Rx iron) tablet New Prescriptions to Start Prescriptions: Allergies Allergy/AdvReac Type Severity Reaction Status Date / Time naproxen (NAPROXEN) Allergy Mild I-ITCHING Verified 10/05/24 13:22 tramadol (From Ultram) Allergy Unknown Verified 10/05/24 13:22 allergy reaction Assessment and Plan *Assessment and plan (1) Bilateral sacroiliitis: Status: Acute Category: Medical Code(s): M46.1 - Sacroiliitis, not elsewhere classified Plan Patient is doing well following her SI injections and does not require any additional injection therapy at this time. Patient will return to clinic in 6 weeks for reevaluation of symptoms and plan of care. Patient has been instructed to contact the clinic with any concerns before the next appointment. Dr. Koehler has reviewed this note and agrees with this plan of care. This note was dictated using voice recognition software and make contain errors or omissions. All injections are used with Lidocaine, Bupivacaine and dexamethasone. Occasionally urine drug screen is needed to verify patient's compliance with our office pain contract. This is ordered based off specific treatments related to chronic pain with the potential to abuse certain medications.
== END 2024-12-06 23:59 | disposition home or self-care (01) ==
LOC: SC.PAIN 14:07
PROVIDERS: Obstetrics & Gynecology; PCP Physician Assistant; Visit Provider Nurse Practitioner Family
DX: M46.1 Sacroiliitis, not elsewhere classified (principal)
CPT/HCPCS: 36415; 85025; 99212; G0463

== ENCOUNTER 2025-01-31 13:04 | Outpatient (CLI) | payer OTHER, SELFPAY ==
--- OUTSIDE RECORDS SUMMARY | 2025-01-31 13:12 | XMS_ITS | Clinical Summary ---
[facility] Organization [facility] Address [address] [place] [address] Care Team Providers Care Automobile Tire Builder Name Role Phone Halley Mtz Primary Care Provider [phone] Allergies No known active allergies Medications albuterol [...] EDT - 11/16/2024 11:10 PM EDT Emergency [facility] [address] [facility] [place] [address] Zhen Samuel MD Brain fog (Primary Dx); Polysubstance abuse; Anxiety; Panic attacks Discharge Disposition: Home or Self Care 11/16/2024 Travel from Last 3 Months Social History Tobacco Use Types Packs/Day Years Used Date Smoking Tobacco: Every Day Cigarettes 1 22.7 Started: 2002 Smokeless Tobacco: Never Tobacco Cessation:Ready to Q uit: Not Asked; Counseling Given: Not Answered Alcohol Use Standard Drinks/Week Comments Never 0 (1 standard drink = 0.6 oz pur e alcohol) Abuse Screen Answer Date Recorded Feels Unsafe at Home or Work/School no 11/16/2024 Feels Threatened by Someone no 0705/2024 Does Anyone Try to Keep You From [...] COVID-19 Vaccine (1 - 2023-2 5 season) 2025 INFLUENZA VACCINE 02/16/2025 HEPATITIS C SCREENING Completed [...] <6 <14 ng/L 11/16/2024 10:37 PM EDT [facility] Troponin T Numeric Delta 11/16/2024 10:37 PM EDT [facility] Comment:Unable to calculate. Blood Venipuncture / Unknown 11/16/2024 10:11 PM EDT 11/16/2024 10:18 PM EDT Narrative [facility] - 11/16/2024 10:37 PM EDT [...] MD LAB BLOOD ORDERABLES Final Resul t [facility]
[address] [place] [address], * ECG 12 Lead Altered Mental Status [...] Telemetry Scan (11/16/2024 9:47 PM EDT) [facility] ORDERABLES Final Result * XR Chest 1 View (11/16/2024 9:35 PM EDT) Anatomical Region Laterality Modality Body N/A Radiographic Bhavna ging 11/16/2024 9:43 PM EDT Impressions 11/16/2024 9:43 PM EDT Impression: No radiographic evidence of acute cardiopulmonary abnormality. Electronically Signed: Silvestre Crawley MD 11/16/2024 9:43 PM EDT Workstation ID: [id number] Narrative 11/16/2024 9:43 PM EDT XR CHEST [...] MD 11/16/2024 9:43 PM EDT Workstation ID: [id number] Zhen Samuel MD IMG DIAGNOSTIC IMAGING ORDERABLE S Final Result * (ABNORMAL) Urinalysis, Microscopic Only - Urine, Clean Catch (11/16/2024 9:21 PM EDT) RBC, UA 6-10(A) None Seen, 0-2 /HPF 11/16/2024 10:14 PM EDT [facility] WBC, UA 0-2 None Seen, 0-2 /HPF 11/16/2024 10:14 PM EDT [facility] Bacteria, UA None Seen None Seen, Trace /HPF 11/16/2024 10:14 PM EDT [facility] Squamous Epithelial Cells, UA 7-12(A) None Seen, 0-2 /HPF 11/16/2024 10:14 PM EDT [facility] Hyaline Casts, UA 0-6 0 - 6 /LPF 11/16/2024 10:14 PM EDT [facility] Calcium Oxalate Crystals, UA Small/1+ None Seen /HPF 11/16/2024 10:14 PM EDT [facility] Mucus, UA Moderate/2+(A) None Seen, Trace /HPF 11/16/2024 10:14 PM EDT [facility] Methodology Manual Light Microscopy 11/16/2024 10:14 PM EDT [facility] Urine Urine specimen obtained by clean catch procedure / Unknown Collection / Unknown 11/16/2024 9:21 PM EDT 11/16/2024 9:43 PM EDT us Zhen Samuel MD URINE ORDERABLES Final Result [facility]
[address] [place] [address], * (ABNORMAL) Urinalysis With Microscopic If Indicated (No Culture) - Urine, Clean Catch (11/16/2024 9:21 PM EDT) Color, UA Dark Yellow(A) Yellow, Straw 11/16/2024 9:51 PM EDT [facility] Appearance, UA Clear Clear 11/16/2024 9:51 PM EDT [facility] pH, UA 6.5 5.0 - 8.0 11/16/2024 9:51 PM EDT [facility] Specific Joseph, UA 1.026 1.001 - 1.030 11/16/2024 9:51 PM EDT [facility] Glucose, UA Negative Negative 11/16/2024 9:51 PM EDT [facility] Ketones, UA 15 mg/dL (1+)(A) Negative 11/16/2024 9:51 PM EDT [facility] Bilirubin, UA Small (1+)(A) Negative 11/16/2024 9:51 PM EDT [facility] Blood, UA Trace(A) Negative 11/16/2024 9:51 PM EDT [facility] Protein, UA 30 mg/dL (1+)(A) Negative 11/16/2024 9:51 PM EDT [facility] Leuk Esterase, UA Trace(A) Negative 11/16/2024 9:51 PM EDT [facility] Nitrite, UA Negative Negative 11/16/2024 9:51 PM EDT [facility] Urobilinogen, UA 4.0 E.U./dL(A) 0.2 - 1.0 E.U./dL 11/16/2024 9:51 PM EDT [facility] Urine Urine specimen obtained by clean catch procedure / Unknown Collection / Unknown 11/16/2024 9:21 PM EDT 11/16/2024 9:43 PM EDT Zhen Samuel MD URINE ORDERABLES Final Result [facility]
[address] [place] [address], * (ABNORMAL) Urine Drug Screen - Urine, Clean Catch (11/16/2024 9:21 PM EDT) THC, Screen, Urine Positive(A) Negative 11/16 10:01 PM EDT [facility] Phencyclidine (PCP), Urine Negative Negative 11/16/2024 10:01 PM EDT [facility] Cocaine Screen, Urine Negative Negative 11/16/2024 10:01 PM EDT [facility] Methamphetamine, Ur Negative Negative 11/16/2024 10:01 PM EDT [facility] Opiate Screen Negative Negative 11/16/2024 10:01 PM EDT [facility] Amphetamine Screen, Urine Negative Negative 11/16/2024 10:01 PM EDT [facility] Benzodiazepine Screen, Urine Negative Negative 11/16/2024 10:01 PM EDT [facility] Tricyclic Antidepressants Screen Negative Negative 11/16/2024 10:01 PM EDT [facility] Methadone Screen, Urine Negative Negative 11/16/2024 10:01 PM EDT [facility] Barbiturates Screen, Urine Negative Negative 11/16/2024 10:01 PM EDT [facility] Oxycodone Screen, Urine Negative Negative 11/16/2024 10:01 PM EDT [facility] Buprenorphine, Screen, Urine Positive(A) Negative 11/16/2024 10:01 PM EDT [facility] Urine Urine specimen obtained by clean catch procedure / Unknown Collection / Unknown 11/16/2024 9:21 PM EDT 11/16/2024 9:43 PM EDT [facility] - 11/16/2024 10:01 PM EDT [...] Zhen Samuel MD URINE ORDERABLES Final Result [facility]
[address] [place] [address], * Fentanyl, Urine - Urine, Clean Catch (11/16/2024 9:21 PM EDT) Fentanyl, Urine Negative Negative 11/16/2024 10:37 PM EDT [facility] Urine Urine specimen obtained by clean catch procedure / Unknown Collection / Unknown 11/16/2024 9:21 PM EDT 11/16/2024 9:43 PM EDT Narrative [facility] - 11/16/2024 10:37 PM EDT [...] URINE ORDERABLES Final Result Performing Organization Address City/[facility] Co de Phone Number [facility]
[address] [place] [address], * Hanson Top (11/16/2024 9:12 PM EDT) Extra Tube Hold for add-ons. 11/16/2024 9:31 PM EDT [facility] Comment:Auto resulted. Blood Venipuncture / Unknown 11/16/2024 9:12 PM EDT 11/16/2024 9:20 PM EDT us Zhen Samuel MD LAB BLOOD ORDER ONLY Final Resul t Performing Organization Address City/[facility]/ZIP Co de Phone Number [facility]
[address] [place] [address], [place] [phone] * Gold Top - SST (11/16/2024 9:12 PM EDT) Extra Tube Hold for add-ons. 11/16/2024 9:31 PM EDT [facility] Comment:Auto resulted. Blood Venipuncture / Unknown 11/16/2024 9:12 PM EDT 11/16/2024 9:20 PM EDT us Zhen Samuel MD LAB BLOOD ORDER ONLY Final Resul t Performing Organization Address City/[facility]/ZIP Co de Phone Number [facility]
[address] [place] [address], * Green Top (Gel) (11/16/2024 9:12 PM EDT) Extra Tube Hold for add-ons. 11/16/2024 9:31 PM EDT [facility] Comment:Auto resulted. Blood Venipuncture / Unknown 11/16/2024 9:12 PM EDT 11/16/2024 9:19 PM EDT us Zhen Samuel MD LAB BLOOD ORDER ONLY Final Resul t Performing Organization Address [facility] Co de Phone Number [facility]
[address] [place] [address], * Scan Slide (11/16/2024 9:12 PM EDT) Anisocytosis Slight/1+ None Seen 11/16/2024 10:53 PM EDT [facility] Hypochromia Slight/1+ None Seen 11/16/2024 10:53 PM EDT [facility] Toxic Granulation Slight/1+ None Seen 11/16/2024 10:53 PM EDT [facility] Platelet Morphology Normal Normal 11/16/2024 10:53 PM EDT [facility] Blood Venipuncture / Unknown 11/16/2024 9:12 PM EDT 11/16/2024 9:20 PM EDT us Zhen Samuel MD LAB BLOOD ORDERABLES Final Resul t Performing Organization Address City/[facility] Co de Phone Number [facility]
[address] [place] [address], * (ABNORMAL) CBC Auto Differential (11/16/2024 9:12 PM EDT) WBC 6.94 3.40 - 10.80 10*3/mm3 11/16/2024 10:53 PM EDT [facility] RBC 4.76 3.77 - 5.28 10*6/mm3 11/16/2024 10:53 PM EDT [facility] Hemoglobin 12.8 12.0 - 15.9 g/dL 11/16/2024 10:53 PM EDT [facility] Hematocrit 41.3 34.0 - 46.6 % 11/16/2024 10:53 PM EDT [facility] MCV 86.8 79.0 - 97.0 fL 11/16/2024 10:53 PM EDT [facility] MCH 26.9 26.6 - 33.0 pg 11/16/2024 10:53 PM EDT [facility] MCHC 31.0(L) 31.5 - 35.7 g/dL 11/16/2024 10:53 PM EDT [facility] RDW 24.6(H) 12.3 - 15.4 % 11/16/2024 10:53 PM EDT [facility] RDW-SD 74.6(H) 37.0 - 54.0 fl 11/16/2024 10:53 PM EDT [facility] MPV 8.8 6.0 - 12.0 fL 11/16/2024 10:53 PM EDT [facility] Platelets 208 140 - 450 10*3/mm3 11/16/2024 10:53 PM EDT [facility] Neutrophil % 74.5 42.7 - 76.0 % 11/16/2024 10:53 PM EDT [facility] Lymphocyte % 17.1(L) 19.6 - 45.3 % 11/16/2024 10:53 PM EDT [facility] Monocyte % 7.8 5.0 - 12.0 % 11/16/2024 10:53 PM EDT [facility] Eosinophil % 0.4 0.3 - 6.2 % 11/16/2024 10:53 PM EDT [facility] Basophil % 0.1 0.0 - 1.5 % 11/16/2024 10:53 PM EDT [facility] Immature Grans % 0.1 0.0 - 0.5 % 11/16/2024 10:53 PM EDT [facility] Neutrophils, Absolute 5.16 1.70 - 7.00 10*3/mm3 11/16/2024 10:53 PM EDT [facility] Lymphocytes, Absolute 1.19 0.70 - 3.10 10*3/mm3 11/16/2024 10:53 PM EDT [facility] Monocytes, Absolute 0.54 0.10 - 0.90 10*3/mm3 11/16/2024 10:53 PM EDT [facility] Eosinophils, Absolute 0.03 0.00 - 0.40 10*3/mm3 11/16/2024 10:53 PM EDT [facility] Basophils, Absolute 0.01 0.00 - 0.20 10*3/mm3 11/16/2024 10:53 PM EDT [facility] Immature Grans, Absolute 0.01 0.00 - 0.05 10*3/mm3 11/16/2024 10:53 PM EDT [facility] nRBC 0.0 0.0 - 0.2 /100 WBC 11/16/2024 10:53 PM EDT [facility] Blood Venipuncture / Unknown 11/16/2024 9:12 PM EDT 11/16/2024 9:20 PM EDT Narrative [facility] - 11/16/2024 10:53 PM EDT Appended report. These results have been appended to a previously verified report. us Zhen Samuel MD LAB BLOOD ORDERABLES Final Resul t [facility]
[address] [place] [address], * Lavender Top (11/16/2024 9:12 PM EDT) Extra Tube hold for add-on 11/16/2024 9:31 PM EDT [facility] Comment:Auto resulted Blood Venipuncture / Unknown 11/16/2024 9:12 PM EDT 11/16/2024 9:20 PM EDT Zhen Samuel MD LAB BLOOD ORDER ONLY Final Resul t Performing Organization Address City/[facility]/ZIP Co de Phone Number [facility]
[address] [place] [address], * Light Blue Top (11/16/2024 9:12 PM EDT) Extra Tube Hold for add-ons. 11/16/2024 9:31 PM EDT [facility] Comment:Auto resulted Blood Venipuncture / Unknown 11/16/2024 9:12 PM EDT 11/16/2024 9:20 PM EDT us Zhen Samuel MD LAB BLOOD ORDER ONLY Final Resul t [facility]
[address] [place] [address], * High Sensitivity Troponin T (11/16/2024 9:12 PM EDT) HS Troponin T <6 <14 ng/L 11/16/2024 9:48 PM EDT [facility] Blood Venipuncture / Unknown 11/16/2024 9:12 PM EDT 11/16/2024 9:19 PM EDT Narrative [facility] - 11/16/2024 9:48 PM EDT [...] ORDERABLES Final Resul t Performing Organization Address City/[facility] Co de Phone Number [facility]
[address] [place] [address], * Magnesium (11/16/2024 9:12 PM EDT) [facility] Magnesium 2.3 1.6 - 2.6 mg/dL 11/16/2024 9:48 PM EDT [facility] Blood Venipuncture / Unknown 11/16/2024 9:12 PM EDT 11/16/2024 9:19 PM EDT us Zhen Samuel MD LAB BLOOD ORDERABLES Final Resul t Performing Organization Address [facility] de Phone Number [facility]
[address] [place] [address], * (ABNORMAL) Comprehensive Metabolic Panel (11/16/2024 9:12 PM EDT) Glucose 110(H) 65 - 99 mg/dL 11/16/2024 9:48 PM EDT [facility] BUN 5.1(L) 6.0 - 20.0 mg/dL 11/16/2024 9:48 PM EDT [facility] Creatinine 0.67 0.57 - 1.00 mg/dL 11/16/2024 9:48 PM EDT [facility] Sodium 138 136 - 145 mmol/L 11/16/2024 9:48 PM EDT [facility] Potassium 3.3(L) 3.5 - 5.2 mmol/L 11/16/2024 9:48 PM EDT [facility] Chloride 103 98 - 107 mmol/L 11/16/2024 9:48 PM EDT [facility] CO2 22.5 22.0 - 29.0 mmol/L 11/16/2024 9:48 PM EDT [facility] Calcium 9.7 8.6 - 10.5 mg/dL 11/16/2024 9:48 PM EDT [facility] Total Protein 7.4 6.0 - 8.5 g/dL 11/16/2024 9:48 PM EDT [facility] Albumin 4.7 3.5 - 5.2 g/dL 11/16/2024 9:48 PM T [facility] ALT (SGPT) 17 1 - 33 U/L 11/16/2024 9:48 PM T [facility] AST (SGOT) 30 1 - 32 U/L 11/16/2024 9:48 PM T [facility] Alkaline Phosphatase 54 39 - 117 U/L 11/16/2024 9:48 PM T [facility] Total Bilirubin 0.4 0.0 - 1.2 mg/dL 11/16/2024 9:48 PM T [facility] Globulin 2.7 gm/dL 11/16/2024 9:48 PM T [facility] Comment:Calculated Result A/G Ratio 1.7 g/dL 11/16/2024 9:48 PM T [facility] BUN/Creatinine Ratio 7.6 7.0 - 25.0 11/16/2024 9:48 PM T [facility] Anion Gap 12.5 5.0 - 15.0 mmol/L 11/16/2024 9:48 PM T [facility] eGFR 114.2 >60.0 mL/min/1.7 3 11/16/2024 9:48 PM [facility] Blood Venipuncture / Unknown 11/16/2024 9:12 PM EDT 11/16/2024 9:19 PM EDT Narrative [facility] - 11/16/2024 9:48 PM EDT [...] MD LAB BLOOD ORDERABLES Final Resul t [facility]
[address] [place] [address], from Last 3 Months Insurance [facility] Care Teams Automobile Tire Builder Relationship Specialty Start Date End Date Halley Mtz PA [address] [place] [address] PCP - General Physician Satellite Tv Technician 11/16/24
--- OUTSIDE RECORDS SUMMARY | 2025-01-31 13:12 | XMS_ITS | Clinical Summary ---
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
--- OUTSIDE RECORDS SUMMARY | 2025-01-31 13:12 | XMS_ITS | Referral Summary ---
Author Organization [employer] ([place], [place], [place], [place]) Address [address] [place] [address] Care Team Providers Care Restaurant Delivery Driver Name Role Phone Unavailable Primary Care Provider [...] of Treatment Not on file Insurance [employer] [facility] [place]
--- NOTE | 2025-01-31 13:16 | XR_ITS ---
FINAL REPORT CLINICAL HISTORY: mila knee pain FINDINGS: RIGHT KNEE 3 views of the right knee were obtained. There is no acute fracture or dislocation. Visualized joint spaces are normally aligned. Soft tissues are unremarkable. IMPRESSION: No acute bony abnormality. Reviewed, Interpreted and Dictated by Vanessa Obrien MD Transcribed by Neva Shukla Authenticated and [facility]
--- NOTE | 2025-01-31 13:16 | XR_ITS ---
FINAL REPORT CLINICAL HISTORY: mila knee pain FINDINGS: LEFT KNEE 3 views of the left knee were obtained. There is no acute fracture or dislocation. Visualized joint spaces are normally aligned. Soft tissues are unremarkable. IMPRESSION: No acute bony abnormality. Reviewed, Interpreted and Dictated by Vanessa Obrien MD Transcribed by Neva Shukla Authenticated and [facility]
== END 2025-01-31 23:59 | disposition home or self-care (01) ==
LOC: RAD 13:06
PROVIDERS: PCP Physician Assistant; Visit Provider Nurse Practitioner Family
DX: M25.561 Pain in right knee (principal); M25.562 Pain in left knee
CPT/HCPCS: 73562

== ENCOUNTER 2025-02-23 13:08 | Outpatient (CLI) | payer OTHER, SELFPAY ==
--- NOTE | 2025-02-23 13:30 | US_ITS ---
FINAL REPORT TECHNIQUE: Sonographic images of the thyroid gland were obtained in the longitudinal and transverse planes. CLINICAL HISTORY: history of thyroid nodule COMPARISON: 08/23/2024 FINDINGS: The right lobe measures 1.7 x 4.0 x 1.4 cm. There is a hypoechoic 9 mm nodule in the lower pole, unchanged. No new nodules identified. The left lobe measures 1.6 x 4.6 x 1.2 cm. The left lobe is homogeneous. There are no cystic or solid nodules. The isthmus measures 3 mm. This is normal. IMPRESSION: Stable 9 mm TR 4 nodule on the right. No follow-up required per TI-RADS criteria. Reviewed, Interpreted and Dictated by Eileen Peña MD Transcribed by Elena Sifuentes Authenticated and [facility]
== END 2025-02-23 23:59 | disposition home or self-care (01) ==
LOC: RAD 13:09
PROVIDERS: PCP Physician Assistant; Visit Provider Nurse Practitioner
DX: E04.1 Nontoxic single thyroid nodule (principal)
CPT/HCPCS: 76536

== ENCOUNTER 2025-02-27 13:30 | Emergency (ER) | payer OTHER, SELFPAY ==
[2025-02-27 13:44] VITALS: BP 132/80; PULSE 78; RESP 15; TEMP 36.7; O2SAT 96; BMI 23.3
--- NOTE | 2025-02-27 13:44 | HMH.EDGENADL ---
Discharge Plan Disposition Patient Disposition: Home, Self-Care Prescriptions Prescriptions: No Action buprenorphine-naloxone [Suboxone] 8-2 mg film 1 film sublingual BID Linzess 72 mcg capsule 72 mcg PO DAILY Qty: 90 3RF Caplyta 10.5 mg capsule PO Patient Comments: TAKE 1 CAPSULE BY MOUTH ONCE DAILY FOR 30 DAYS ibuprofen 600 mg tablet 600 mg PO TID Qty: 90 2RF famotidine 40 mg tablet See Rx Instructions .ROUTE .COMPLEX Qty: 30 3RF Dose Instruction: TAKE ONE TABLET BY MOUTH AT BEDTIME Rx Instructions: TAKE ONE TABLET BY MOUTH AT BEDTIME omeprazole 40 mg capsule,delayed release(DR/EC) See Rx Instructions .ROUTE .COMPLEX Qty: 30 5RF Dose Instruction: TAKE ONE CAPSULE BY MOUTH ONCE A DAY Rx Instructions: TAKE ONE CAPSULE BY MOUTH ONCE A DAY ferrous sulfate 325 mg (65 mg iron) tablet 325 mg PO DAILY Qty: 30 5RF sumatriptan succinate [Imitrex] 100 mg tablet 100 mg PO DAILY PRN (Reason: migraines) ondansetron 4 mg Tablet,Disintegrating 4 mg PO Q8H PRN (Reason: Nausea) Qty: 12 0RF Referrals Follow up/Referrals: Halley Mtz PA [Primary Care Provider, Medical] - See instructions Activity Restrictions/Add. Instructions Additional Instructions/Restrictions: You have been seen and evaluated the emergency department. You may take Tylenol and ibuprofen for your symptoms. We are happy to reevaluate you if symptoms worsen. Otherwise, follow-up with your PCP. Clinical Impressions Clinical Impression: Acute viral syndrome Instructions Patient Instructions: DI for Viral Syndrome Print Language Print Language: Bulgarian Discharge ED Provider: Laurel Ramos Adult HPI General Chief complaint: Upper Respiratory Infection Stated complaint: headache, body ache Time Seen by Provider: 02/27/25 13:37 History of Present Illness HPI narrative: 39-year-old female with history of IBS and thyroid disease presenting the emergency department with headache and diffuse bodyaches. Symptoms have been persistent over the past 2 to 3 days. She denies any accompanying fever, rash, chest pain, shortness of breath, or abdominal pain. She is currently menstruating. Related Data Home Medications ?Medication ?Instructions ?Recorded ?Confirmed buprenorphine 8 mg-naloxone 2 mg 1 film sublingual BID 09/10/22 02/07/25 sublingual film (Suboxone) sumatriptan succinate 100 mg 100 mg PO DAILY PRN migraines 12/02/23 02/07/25 tablet (Imitrex) lumateperone 10.5 mg capsule mg PO 01/05/25 02/07/25 (Caplyta) Previous Rx's ?Medication ?Instructions ?Recorded ondansetron 4 mg disintegrating 4 mg PO Q8H PRN Nausea #12 tabs 09/15/23 tablet famotidine 40 mg tablet See Rx Instructions .Route 09/01/24 .COMPLEX #30 tabs omeprazole 40 mg capsule,delayed See Rx Instructions .Route 09/21/24 release .COMPLEX #30 caps linaclotide 72 mcg capsule 72 mcg PO DAILY #90 caps 10/05/24 (Linzess) ferrous sulfate 325 mg (65 mg 325 mg PO DAILY #30 tabs 10/12/24 iron) tablet ibuprofen 600 mg tablet 600 mg PO TID #90 tabs 02/07/25 Allergies Allergy/AdvReac Type Severity Reaction Status Date / Time naproxen (NAPROXEN) Allergy Mild I-ITCHING Verified 02/07/25 12:30 tramadol (From Ultram) Allergy Unknown Verified 02/07/25 12:30 allergy reaction PFSH PFS Disclaimer: The information contained in this section may have been updated after the patient was seen, as this information can be updated by other users. Medical History Knee pain, bilateral Thyromegaly GERD (gastroesophageal reflux disease) Change in bowel movement Abdominal pain Dysphagia History of COVID-19 History of gastroesophageal reflux (GERD) Allergies History of anemia Hyperthyroidism Thyroid nodule History of thyroid nodule tubal ligation planned Rh negative status during Tobacco smoking affecting History of ectopic Drug abuse Anxiety Migraine Neuropathy Lumbar radicular pain Tobacco use Surgical History Hx of colonoscopy Status post bilateral salpingectomy Status post delivery H/O tubal ligation History of section x 4 Family History Other Alcoholism Asthma Cancer Heart attack Hyperlipidemia Hypertension Scoliosis Substance abuse Social History Smoking Status: Never smoker smoking status start date: Currently vapes, not using cigarettes alcohol intake: never substance use type: former substance user current occupational status: other Travel in the last 8 weeks?: None number of children: 7 caffeine: Yes Have you lived/traveled outside [place] in past 30 days?: No Contact w/someone who lives/traveled outside US past 30 days?: No Exposure to someone with infectious disease in past 14 days?: No Do you have a fever (greater than 100.4 F or 38 C)?: No Have you tested positive for COVID-19?: No Exposed to someone with COVID-19 in past 14 days?: No Do you have a sore throat?: No Do you have a cough?: No Do you have any weakness?: No Do you have any diarrhea?: No Are you experiencing any unusual bleeding?: No Do you have any muscle aches/pain?: No Do you have any abdominal pain?: No Are you experiencing loss of taste or smell?: No Other Medical History Have you received the Flu Vaccine for this season: No Have you received the Pneumonia Vaccine: Yes ROS Obtained: Yes All systems reviewed & no additional complaints except as documented Physical Exam General General appearance: alert and in no apparent distress Head Head exam: atraumatic Eye Eye exam: Present normal appearance, PERRL and EOMI ENT ENT exam: Present mucous membranes moist Neck Neck exam: Present normal inspection and full ROM; Absent tenderness Chest Chest inspection: Present symmetric chest wall rise; Absent tenderness Respiratory Respiratory exam: Absent respiratory distress, wheezes or accessory muscle use Cardiovascular Cardiovascular exam: Present regular rate and normal rhythm Abdominal Exam Abdominal exam: Present soft; Absent tenderness or guarding Extremities Exam Extremities exam: Present full ROM; Absent tenderness Neurological Exam Neurological exam: Present alert and oriented X3 Psychiatric Psychiatric exam: Present normal affect Skin Skin exam: Present warm and dry Medical Decision Making Medical Records Screening: Per USPSTF and CDC recommendations, given the prevalence of disease in our region, it is our hospital?s policy to screen for HIV and viral Hepatitis for all patients aged 18 and over and those with ongoing risk factors. Aditya Inquiry Pt receiving controlled substance: No Aditya was queried for this patient: No Vital Signs: 02/27/25 13:44 02/27/25 14:49 Temperature 98.1 F 97.9 F Temperature Source Oral Pulse Rate 81 Pulse Rate [Right] 78 Respiratory Rate 15 15 Blood Pressure 118/71 Blood Pressure [Right Arm] 132/80 Blood Pressure Mean [Right Arm] 97 02 Sat by Pulse Oximetry 96 Oxygen Delivery Method Room Air Lab Data Lab results reviewed: Yes I reviewed the patient's lab results. Lab Results 02/27/25 14:17: SARS-CoV-2 (PCR) Not detected, Influenza A Untype (PCR) Not detected, Influenza Type B (PCR) Not detected Orders (Tests/Meds): ED MEDICATIONS Discontinued Medications Generic Name Dose Route Start Last Admin Trade Name Erich PRN Reason Stop Dose Admin Acetaminophen 1,000 mg 02/27/25 13:42 02/27/25 14:29 Acetaminophen 500mg Tab PO 02/27/25 13:43 1,000 mg ONCE ONE Administration Ketorolac Tromethamine 15 mg 02/27/25 13:42 02/27/25 14:29 Ketorolac 15mg/Ml Vial IV 02/27/25 13:43 15 mg ONCE ONE Administration ORDERS Category Date Time Status Rapid PCR Covid and Flu A/B Stat Lab 02/27/25 14:17 Completed Medical Decision Narrative: 39yo female presenting for DICKERSON and body aches. Differential dx includes but not limited to: viral syndrome, electrolyte abnormality, migraine tension DICKERSON, SABINO On my initial assessment, patient is hemodynamically stable in no acute distress. She has no reproducible tenderness and symptoms are favored to be cash posting representative of viral syndrome. Tylenol and Toradol ordered for treatment. Patient ultimately declined CBC/CMP. She would like to be discharged and F/U with her PCP. She was told to call for viral swab results. I discharged her home with instructions to continue symptomatic care at home. Critical Care Critical Care Time Critical Care Time: No
--- OUTSIDE RECORDS SUMMARY | 2025-02-27 13:59 | XMS_ITS | Clinical Summary ---
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
--- OUTSIDE RECORDS SUMMARY | 2025-02-27 13:59 | XMS_ITS | Continuity of Care Document ---
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 N Osteoporosis N Chicken Pox N Autism Spectrum Disorder (ASD) N Thrombophilias N Gynecological History Statement/Question Response Date of LMP 01/14/2025 Sexually Active? Y Menses Monthly Y Date of Last Pap Smear 06/06/2022 Sexual Problems? Y Age at Menarche 13 Most Recent Mammogram LMP Approximate Age at First Child 16 Obstetrics History GPAL:G 10 P 8 0 1 10 Type Value Multiple Births 1 Full Term 8 Living 10 Ectopics 1 Total 10 Past Encounters Encounter ID Performer Location Encounter Start Date Encounter Closed Date Diagnosis/Indication Diagnosis SNOMED-CT Code Diagnosis ICD10 Code Diagnosis IMO Codes Diagnosis Note [id number] JEAN CLAUDE Piper [address] [address] 12/07/2024 11:36:03 12/07/2024 12:16:04 Long-term current use of drug therapy 353077792 Z79.899 63696946 Bipolar disorder 6234590 4 F31.9 Cervical d isc disorder with radiculopathy 336814938 M50.10 Lumbar radiculopathy 128 204821 M54.16 UDS pending [id number] JEAN CLAUDE Piper [facility] [address] [place] [address] 01/07/2025 10:37:41 01/07/2025 11:01:55 Bipolar disorder 55418737 F31.9 Generalize d anxiety disorder 67982520 F41.1 Lumbar radiculopathy 128 401756 M54.16 Migraine w ithout aura, not refractory 730457644 G43.009 Vitamin D deficiency 347 97918 E55.9 25016 Iron defic iency anemia 97629874 D50.9 98307787 Chronic constipation 236 127434 K59.09 370295 Gastroesop hageal reflux disease without esophagitis 624638356 K21.9 816185 Health Concerns Section Related Observation LastModified by Organization Detai ls LastModified Time None Recorded Concern Status LastModified by Organization Details LastModified Time None Recorded Payers Encounter Date Sequence Insurance Name Policy Number Policy Rizvi Covered Member ID Rizvi Member ID Guarantor Name 01/07/2025 1 [employer] [facility] (MEDICAID HMO) Scarlett Padron [id number] Scarlett Padron Notes Date Note Type Note Provider Name and Address Organization Details Recorded Time 01/07/2025 text/html ROS as noted in the HPI Patient presents for followup.History of bipolar disorder. Doing very well on Caplyta. Feels like her mind is much calmer and she is able to think more clearly.Stopped taking Gabapentin and is feeling better.Needs refills on other meds. JEAN CLADUE Piper [address] [place] [address], [place], [address], [facility] [email or web address] 01/10/2025 11:37:32 OBGyn Episode No OBEpisode recorded.
--- OUTSIDE RECORDS SUMMARY | 2025-02-27 13:59 | XMS_ITS | Clinical Summary ---
[facility] Address [address] [place] [address] Care Team Providers Care Global Account Manager Name Role Phone Halley Mtz Primary Care Provider [phone] Allergies No known active allergies Medications albuterol [...] Chronic hepatitis C complicating , ante 10/09/2022 Social History Tobacco Use Types Packs/Day Years Used Date Smoking Tobacco: Every Day Cigarettes 1 22.8 Started: 2002 Smokeless Tobacco: Never Tobacco Cessation:Ready [...] (1 - Tdap) 2004 ANNUAL PHYSICAL 05/08/2021 INFLUENZA VACCINE 12/17/2024 HEPATITIS C SCREENING Completed 02/07/2023 , 02/07/2023, 12/31/2022, Additional history exists Insurance [facility] Care Teams Global Account Manager Relationship Specialty Start Date End Date Halley Mtz PA [address] [place] [address] PCP - General Physician [employer] Software Consultant 11/16/24
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
--- OUTSIDE RECORDS SUMMARY | 2025-02-27 13:59 | XMS_ITS | Referral Summary ---
Author Organization [employer] ([place], [place], [place], [place]) Address [address] [place] [address] Care Team Providers Care Instrumental Music Teacher Name Role Phone Unavailable Primary Care Provider [...] Date Brayan rded Speak language other than [place] at home Not on file 06/06/2023 Want [...] of Treatment Not on file Insurance [facility] [facility]
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
[2025-02-27 14:22] LABS: Coronavirus 19, PCR Not Detected (NotDetected); Influenza A, PCR Not Detected (NotDetected); Influenza B, PCR Not Detected (NotDetected)
[2025-02-27] MEDS: ACETAMINOPHEN 500MG TAB 1000 MG PO (14:29)
[2025-02-27] MEDS: KETOROLAC 15MG/ML VIAL 15 MG IV (14:29)
--- NOTE | 2025-02-27 14:42 | PC.NURSE ---
pt refused all labs.
[2025-02-27 14:49] VITALS: BP 118/71; PULSE 81; RESP 15; TEMP 36.6; O2SAT 99
== END 2025-02-27 14:50 | disposition home or self-care (01) ==
PROVIDERS: Emergency Provider Student in an Organized Health Care Education/Training Program; PCP Physician Assistant
DX: R51.9 Headache, unspecified (principal)
CPT/HCPCS: 87636; 96374; 99282; 99284; J1885

== ENCOUNTER 2025-03-01 16:15 | Outpatient (CLI) | payer OTHER, SELFPAY ==
--- OUTSIDE RECORDS SUMMARY | 2025-03-01 16:18 | XMS_ITS | Clinical Summary ---
Author Organization [employer] ([place], [place], [place], [place]) Address [address] [place] [address] Care Team Providers Care Design Drafter Name Role Phone Unavailable Primary Care Provider [...] Date Brayan rded Speak language other than Honduran at home Not on file 06/06/2023 Want [...] 2025 Insurance [employer] [place] [employer] [facility] [place]
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
--- OUTSIDE RECORDS SUMMARY | 2025-03-01 16:18 | XMS_ITS | Referral Summary ---
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
--- OUTSIDE RECORDS SUMMARY | 2025-03-01 16:18 | XMS_ITS | Clinical Summary ---
[facility] Organization [facility] Address [address] [place] [address] Care Team Providers Care Clay Caster Name Role Phone Halley Mtz Primary Care Provider [phone] Allergies No known active allergies Medications albuterol [...] , 02/07/2023, 12/31/2022, Additional history exists Insurance [facility] Care Teams Clay Caster Relationship Specialty Start Date End Date Halley Mtz PA [address] [place] [address] PCP - General Physician Maint Mechanic 11/16/24
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
[2025-03-01 17:03] LABS: Hematocrit 42.8 % (37.0-47.0); Hemoglobin 14.1 g/dL (12.2-16.2); Immature Granulocytes % 0.2 %; Mean Corpuscular HGB Conc 32.9 g/dL (31.8-35.4); Mean Corpuscular Hemoglobin 31.8 pg (27.0-31.2); Mean Corpuscular Volume 96.4 fl (81-99); Nucleated Red Blood Cells % 0 %; Platelet Count 215 K/mm3 (142-424); Red Blood Count 4.44 M/mm3 (4.20-5.40); Red Cell Distribution Width-SD 46.6 fL; White Blood Count 8.2 K/mm3 (4.8-10.8)
[2025-03-01 18:27] LABS: Potassium 3.8 mmoL/L (3.5-5.1)
[2025-03-01 18:30] LABS: Alanine Aminotransferase 13 U/L (12-78); Alkaline Phosphatase 52 U/L (38-126); Aspartate Amino Transferase 24 U/L (14-36); Bilirubin,Total 0.2 mg/dl (0.2-1.3); Blood Urea Nitrogen 3 mg/dl (7-17); Calcium 8.7 mg/dl (8.4-10.2); Carbon Dioxide 29 mmol/L (22.0-30.0); Creatinine,Serum 0.60 mg/dl (0.52-1.04); Estimated Glomerular Filt Rate 111 ml/min (>60); GFR (African American) 135 ML/MIN (>60); Glucose 92 mg/dl (74-100); Iron 69 ug/dL (37-170); Total Protein,Serum 6.4 g/dl (6.3-8.2)
[2025-03-01 19:04] LABS: Thyroid Stimulating Hormone 0.68 uIU/mL (0.465-4.68)
[2025-03-01 19:56] LABS: Albumin Level 3.9 g/dl (3.5-5.0); Albumin/Globulin Ratio 1.6 (1.1-1.8); Anion Gap 9.8 mEq/L (5-15); Chloride 101 mmol/L (98-107); Ferritin 26.0 ng/ml (6.24-137); Globulin 2.5 g/dL (1.3-3.2); Sodium 136 mmol/L (136-145)
[2025-03-01 20:30] LABS: Total Iron Binding Capacity 323 ug/dL (265-497)
== END 2025-03-01 23:59 | disposition home or self-care (01) ==
LOC: LAB 16:16
PROVIDERS: PCP Physician Assistant; Visit Provider Physician Assistant
DX: F50.89 Other specified eating disorder (principal); Z86.19 Personal history of other infectious and parasitic diseases
CPT/HCPCS: 36415; 80053; 82728; 83540; 83550; 84443; 85025; 87522